=== PATIENT | female | born 1980 | race Caucasian/White ===

== ENCOUNTER → 2016-09-22 | Outpatient (CLI) | payer BC ==
[~2016-09-22] MED LIST: BACL10TA PO; BCPILLS PO; CHOL100010 PO; CHOL1TAB52 PO; CHOLTAB9 PO; CLON1TAB3 PO; CLR10 PO; CYAN100020 PO; DOXY100C76 PO; FERR1TAB23 PO; FING1CAP PO; FLUT0.15 NAE; FRCT/ PO; GADAVIST IV PRN; HYDR-5688 PO; IBUP-103 PO; KETO10TA PO; MDR4 PO; MESA1.2T PO; OMEG10007 PO; ONDA4TAB46 SL; SERT50TA PO; [UNRECOGNIZED DRUG - CODE] PO
--- NOTE | 2016-09-22 10:53 | DIAGNOSTIC IMAGING REPORT ---
Brain MRI WITH AND WITHOUT CONTRAST HISTORY: Multiple cirrhosis. Follow-up. TECHNIQUE: Multiplanar multisequence MRI of the brain was performed both before and after the intravenous administration of contrast. COMPARISON STUDY: Brain MRI 06/25/2016. FINDINGS: Mild mucosal thickening within the paranasal sinuses. The orbits are unremarkable. The mastoid air cells are clear. The major vascular flow-voids at the skull base are maintained. There is no mass, hematoma, midline shift. The ventricles and sulci are within normal limits. There again noted a few scattered punctate foci of T2 hyperintensity within the supratentorial brain, left middle cerebellar peduncle and left hemipons. These are not significantly changed and are consistent with the patient's history of multiple sclerosis. No new white matter lesions identified. No areas of abnormal enhancement. IMPRESSION: No significant change in the scattered white matter plaques within the brain consistent with the patient's history of multiple sclerosis. No evidence for active demyelination. Electronically signed by: Goldy Conn M.D. 09/22/2016 10:51 AM Dictated Date/Time: 09/22/2016 10:44 AM
[2016-09-22 13:19] LABS: BASO % 0.4 %; BASO ABS # 0.02 K/uL (0-0.2); COMPLETE YES; IG% 0.2 %; LYMPH % 7.6 %; LYMPH ABS # 0.38 K/uL (1.2-3.4); MEAN CELL VOLUME 82.2 fL (80-100); MEAN CORPUSCULAR HEMOGLOBIN 26.9 pg (25-34); MEAN CORPUSCULAR HGB CONC 32.7 g/dl (32-36); MEAN PLATELET VOLUME 10.8 fL (7.4-10.4); MONO % 17.5 %; NEUT % 72.3 %; PLATELET COUNT 300 K/uL (130-400); WHITE BLOOD COUNT 5.03 K/uL (4.8-10.8)
== END | disposition home or self-care (01) ==
LOC: C.MRIBC 09:01
PROVIDERS: ATTEND Psychiatry & Neurology Neurology
DX: G35 Multiple sclerosis (principal)

== ENCOUNTER → 2016-10-07 | Outpatient (CLI) | payer BC ==
[~2016-10-07] MED LIST changes: -GADAVIST IV PRN
[2016-10-07 17:30] LABS: BASO % 0.4 %; BASO ABS # 0.02 K/uL (0-0.2); COMPLETE YES; EOS % 4.2 %; HEMATOCRIT 34.5 % (37-47); IG% 0.2 %; LYMPH % 7.6 %; LYMPH ABS # 0.38 K/uL (1.2-3.4); MEAN CELL VOLUME 81.4 fL (80-100); MEAN CORPUSCULAR HEMOGLOBIN 27.4 pg (25-34); MEAN CORPUSCULAR HGB CONC 33.6 g/dl (32-36); MEAN PLATELET VOLUME 9.6 fL (7.4-10.4); MONO % 12.5 %; NEUT % 75.1 %; PLATELET COUNT 272 K/uL (130-400); RED BLOOD COUNT 4.24 M/uL (4.2-5.4); WHITE BLOOD COUNT 5.02 K/uL (4.8-10.8)
[2016-10-07 18:10] LABS: PREG INTERNAL NEGATIVE QC NEG CLEAR BACKGROUND; PREG INTERNAL POSITIVE QC POS CONTROL LINE
== END | disposition home or self-care (01) ==
LOC: C.LAB 17:12
PROVIDERS: ATTEND Obstetrics & Gynecology
DX: N92.6 Irregular menstruation, unspecified (principal)

== ENCOUNTER → 2016-12-18 | Outpatient (CLI) | payer BC ==
[~2016-12-18] MED LIST changes: +CHOLCAP5 PO; +CITA40TA4 PO; +KLN1X PO; +PROB1TAB16 PO
--- NOTE | 2016-12-18 07:50 | DIAGNOSTIC IMAGING REPORT ---
ULTRASOUND ABDOMEN COMPLETE CLINICAL HISTORY: Generalized abdominal pain.. COMPARISON STUDY: Abdominal CT dated 06/04/2007. TECHNIQUE: Real-time, grayscale, and color flow sonography of the abdomen was performed. Images are reviewed in the transverse and longitudinal planes. The examination is degraded by large body habitus. FINDINGS: Liver: The liver is normal in size and echotexture. There is no intrahepatic biliary ductal dilatation. The main portal vein is patent. Gallbladder: The gallbladder is normal in appearance. No gallstones are identified. There is no gallbladder wall thickening or pericholecystic fluid. A sonographic Bassett's sign is reportedly absent. The common bile duct measures up to 0.5 cm in diameter. Pancreas: Visualized portions of the pancreatic head and body are normal in appearance. Spleen: The spleen is normal in size and echotexture, measuring 11.1 cm in length. Kidneys: The kidneys are normal in size and echotexture. There is no hydronephrosis. The right kidney measures 11.5 cm in length and the left kidney measures 12.6 cm in length. No shadowing calculi are identified. Abdominal vasculature: Visualized portions of the abdominal aorta and IVC are normal in appearance. Ascites: None. IMPRESSION: Unremarkable sonographic assessment of the abdomen. Electronically signed by: Octavio Collazo M.D. 12/18/2016 7:49 AM Dictated Date/Time: 12/18/2016 7:47 AM
== END | disposition home or self-care (01) ==
LOC: C.ULTR 06:29
PROVIDERS: ATTEND Internal Medicine Gastroenterology
DX: R10.9 Unspecified abdominal pain (principal); R19.4 Change in bowel habit

== ENCOUNTER 2016-12-23 10:39 | Emergency (ER) | payer BC ==
[~2016-12-23] VITALS: Ht 165.1 cm; Wt 116.5 kg
[~2016-12-23 10:39] MED LIST changes: -BCPILLS PO; -CHOL1TAB52 PO; -CHOLCAP5 PO; -CHOLTAB9 PO; -CITA40TA4 PO; -CLR10 PO; -DOXY100C76 PO; -FERR1TAB23 PO; -FING1CAP PO; -FLUT0.15 NAE; -FRCT/ PO; -HYDR-5688 PO; -IBUP-103 PO; -KETO10TA PO; -KLN1X PO; -MDR4 PO; -MESA1.2T PO; -OMEG10007 PO; -PROB1TAB16 PO; -SERT50TA PO; -[UNRECOGNIZED DRUG - CODE] PO
[2016-12-23 10:42] VITALS: TEMP 36.7; Ht 165.1 cm; Wt 116.5 kg
[2016-12-23] MEDS ORDERED: CHOLTAB9 PO (10:50)
[2016-12-23] MEDS ORDERED: CLR10 PO (10:55)
[2016-12-23] MEDS ORDERED: FLUT0.15 NAE (10:55)
[2016-12-23] MEDS ORDERED: DOXY100C76 PO (10:55)
[2016-12-23] MEDS ORDERED: ALBUT/IPRATROP 3MG/0.5MG NEB 3 ML VIAL INH STA (11:10)
[2016-12-23] MEDS ORDERED: SODIUM CHLORIDE 0.9% 1000ML 1,000 ML IV STA (11:18)
[2016-12-23 11:43] VITALS: O2SAT 100
[2016-12-23 11:43] LABS: BASO % 0.5 %; BASO ABS # 0.02 K/uL (0-0.2); COMPLETE YES; EOS % 2.8 %; HEMATOCRIT 35.2 % (37-47); IG% 0.8 %; LYMPH % 15.4 %; LYMPH ABS # 0.61 K/uL (1.2-3.4); MEAN CELL VOLUME 80.9 fL (80-100); MEAN CORPUSCULAR HEMOGLOBIN 26.4 pg (25-34); MEAN CORPUSCULAR HGB CONC 32.7 g/dl (32-36); MEAN PLATELET VOLUME 9.6 fL (7.4-10.4); MONO % 6.8 %; NEUT % 73.7 %; PLATELET COUNT 291 K/uL (130-400); RED BLOOD COUNT 4.35 M/uL (4.2-5.4); WHITE BLOOD COUNT 3.95 K/uL (4.8-10.8)
--- NOTE | 2016-12-23 11:53 | EMERGENCY ROOM VISIT NOTE ---
History First contact with patient: 11:04 Chief Complaint: COUGH Stated Complaint: COUGH, FEVER, CHILLS DX: PNEUMONIA ON 12/18 Nursing Triage Summary: Pt c/o "sorethroat, body aches, GRAHAM, cough, fever, chills 2 ago." Went to urgent care twice was told allergies and prescribed meds and then told Pneumonia and took Doxy "and I'm not feeling any better." Has taken Doxy 6 days. Now c/o cough, unable to bring anything up. Continues to have "pain in face, sore all over, no energy, my throat is tender from the coughing and my ears are itchy and painful" History of Present Illness The patient is a 36 year old female who presents to the Emergency Room with complaints of cough, body aches, sore throat, malaise, and subjective fevers/ chills. Her symptoms started about 2 weeks ago with sore throat and body aches , she saw her PCP initially thought she had allergies and placed her on allergy medicine. Her symptoms continued to progress and she developed a cough. She saw her PCP again 6 days ago and was diagnosed clinically with pneumonia, no chest x-ray, and started on doxycycline. She has taken 6 days of doxycycline and continues to worsen. She reports some posttussive emesis related to coughing spells only. She denies chest pain, hemoptysis, severe dizziness or syncope, abdominal pain, diarrhea, urinary symptoms. Patient does have past medical history of multiple sclerosis, she states this has not been flaring up and has been well-controlled on her medications. Review of Systems GENERAL: + Chills, malaise, fatigue, subjective fevers. Denies unintentional weight changes. HEENT: Denies dizziness, visual problems, hearing loss, tinnitus. Denies difficulty swallowing or oral lesions. PULMONARY: + Cough. Denies shortness of breath, sputum production or hemoptysis. CARDIOVASCULAR: Denies chest pain, palpitations, dyspnea on exertion, orthopnea or peripheral edema. GASTROINTESTINAL: Denies diarrhea, constipation, nausea, vomiting, or abdominal pain. GENITOURINARY: Denies dysuria, frequency, urgency or nocturia. NEUROLOGIC: Denies history of epilepsy, CVA, TIA or chronic headaches. MUSCULOSKELETAL: Denies history of joint tenderness/swelling. SKIN: Denies rashes or lesions. PSYCHIATRIC: Denies history of depression or mental illness. ENDOCRINE: Denies history of diabetes, thyroid disorders, abnormal hair growth or sexual dysfunction. Past Medical/Surgical History Medical Problems: (1) Multiple sclerosis Family History Diabetes mellitus Heart disease Hypertension Kidney disease Lung disease Social History Smoking Status: Former Smoker Alcohol Use: none Drug Use: none Marital Status: Housing Status: lives with family Occupation Status: employed Current/Historical Medications Scheduled Baclofen (Lioresal), 10 MG PO DIRECTED Cholecalciferol (D3-1000), 4,000 UNITS PO DAILY Clonazepam (Klonopin), 1 MG PO BID Cyanocobalamin (Vitamin B12), 1,000 MCG PO DAILY Doxycycline Monohydrate (Monodox), 100 MG PO BID Fingolimod Hcl (Gilenya), 0.5 MG PO DAILY Fluticasone Propionate (Nasal) (Flonase Allergy Relief), 1 SPRAY HUMBLE DAILY Loratadine (Claritin), 10 MG PO DAILY Sertraline (Zoloft), 50 MG PO DAILY Allergies Coded Allergies: Sulfa Drugs (Verified Allergy, Mild, 12/23/16) Adhesives (Verified Allergy, Unknown, RASH, 12/23/16) Nickel (Verified Allergy, Unknown, ?, 12/23/16) Nitrofurantoin (Unverified Allergy, Unknown, rash, 12/23/16) Penicillins (Verified Allergy, Unknown, ITCHY, NAUSEATED, 12/23/16) Physical Exam Vital Signs Date Time Temp Pulse Resp B/P Pulse Ox O2 Delivery O2 Flow Rate FiO2 12/23/16 13:53 49 20 124/66 97 Room Air 12/23/16 12:10 62 20 114/58 95 Room Air 12/23/16 12:03 60 12/23/16 11:43 100 12/23/16 11:40 95 Room Air 12/23/16 11:40 Room Air 12/23/16 10:48 97 Room Air 12/23/16 10:42 36.7 63 18 115/76 97 Room Air Physical Exam VITAL SIGNS: Afebrile, vitals stable. CONSTITUTIONAL: No acute distress. Well appearing and well nourished. Alert and oriented X 4 with normal affect. HEENT: Normocephalic, atraumatic. Pupils equal, round and reactive to light, EOMI. TMs normal. Pharynx normal. Moist mucous membranes. NECK: Supple, full active range of motion without discomfort. RESPIRATORY: Clear to auscultation bilaterally with no wheezing, crackles, rhonchi or stridor. Equal expansion bilaterally. Diminished bilaterally in the bases. CARDIOVASCULAR: Regular rate and rhythm with no murmurs, rubs or gallops. Normal peripheral perfusion. No edema. GASTROINTESTINAL: Soft, nontender, nondistended. Bowel sounds present in all quadrants. MUSCULOSKELETAL: Full range of motion of all joints without discomfort. INTEGUMENTARY: No rash or other significant dermatologic conditions noted. NEUROLOGIC: Cranial nerves II-XII grossly intact. No focal neurologic deficits noted. Medical Decision & Procedures ER Provider Diagnostic Interpretation: CHEST 2 VIEWS ROUTINE CLINICAL HISTORY: EVALUATE RESPIRATORY DISTRESS. DYSPNEA COMPARISON STUDY: 05/21/2016 FINDINGS: The bones soft tissues and hemidiaphragms are normal. The cardiomediastinal silhouette is normal. The lungs are clear. The pulmonary vasculature is normal. IMPRESSION: Negative chest. Laboratory Results 12/23/16 11:28 Red Blood Count 4.35, Mean Corpuscular Volume 80.9, Mean Corpuscular Hemoglobin 26.4, Mean Corpuscular Hemoglobin Concent 32.7, Mean Platelet Volume 9.6, Neutrophils (%) (Auto) 73.7, Lymphocytes (%) (Auto) 15.4, Monocytes (%) (Auto) 6.8, Eosinophils (%) (Auto) 2.8, Basophils (%) (Auto) 0.5, Neutrophils # (Auto) 2.91, Lymphocytes # (Auto) 0.61, Monocytes # (Auto) 0.27, Eosinophils # (Auto) 0.11, Basophils # (Auto) 0.02 12/23/16 11:28 Test 12/23/16 11:28 12/23/16 11:40 White Blood Count 3.95 K/uL (4.8-10.8) Red Blood Count 4.35 M/uL (4.2-5.4) Hemoglobin 11.5 g/dL (12.0-16.0) Hematocrit 35.2 % (37-47) Mean Corpuscular Volume 80.9 fL (80-100) Mean Corpuscular Hemoglobin 26.4 pg (25-34) Mean Corpuscular Hemoglobin Concent 32.7 g/dl (32-36) Platelet Count 291 K/uL (130-400) Mean Platelet Volume 9.6 fL (7.4-10.4) Neutrophils (%) (Auto) 73.7 % Lymphocytes (%) (Auto) 15.4 % Monocytes (%) (Auto) 6.8 % Eosinophils (%) (Auto) 2.8 % Basophils (%) (Auto) 0.5 % Neutrophils # (Auto) 2.91 K/uL (1.4-6.5) Lymphocytes # (Auto) 0.61 K/uL (1.2-3.4) Monocytes # (Auto) 0.27 K/uL (0.11-0.59) Eosinophils # (Auto) 0.11 K/uL (0-0.5) Basophils # (Auto) 0.02 K/uL (0-0.2) RDW Standard Deviation 42.6 fL (36.4-46.3) RDW Coefficient of Variation 14.2 % (11.5-14.5) Immature Granulocyte % (Auto) 0.8 % Immature Granulocyte # (Auto) 0.03 K/uL (0.00-0.02) Anion Gap 4.0 mmol/L (3-11) Est Creatinine Clear Calc Drug Dose 120.1 ml/min Estimated GFR () 106.8 Estimated GFR (Non- 92.1 BUN/Creatinine Ratio 17.9 (10-20) Calcium Level 8.8 mg/dl (8.5-10.1) Total Bilirubin 0.2 mg/dl (0.2-1) Aspartate Amino Transf (AST/SGOT) 10 U/L (15-37) Alanine Aminotransferase (ALT/SGPT) 19 U/L (12-78) Alkaline Phosphatase 66 U/L (45-117) Total Protein 6.9 gm/dl (6.4-8.2) Albumin 3.3 gm/dl (3.4-5.0) Globulin 3.6 gm/dl (2.5-4.0) Albumin/Globulin Ratio 0.9 (0.9-2) Urine Color YELLOW Urine Appearance CLEAR (CLEAR) Urine pH 5.5 (4.5-7.5) Urine Specific [place] 1.007 (1.000-1.030) Urine Protein NEG (NEG) Urine Glucose (UA) NEG (NEG) Urine Ketones NEG (NEG) Urine Occult Blood 2+ (NEG) Urine Nitrite NEG (NEG) Urine Bilirubin NEG (NEG) Urine Urobilinogen NEG (NEG) Urine Leukocyte Esterase NEG (NEG) Urine WBC (Auto) 1-5 /hpf (0-5) Urine RBC (Auto) 0-4 /hpf (0-4) Urine Hyaline Casts (Auto) 1-5 /lpf (0-5) Urine Epithelial Cells (Auto) >30 /lpf (0-5) Urine Bacteria (Auto) NEG (NEG) Urine Test NEG (NEG) Influenza Type A (RT-PCR) Neg for Influ A (NEG) Influenza Type A Antigen Neg for Influ A (NEG) Influenza Type B Antigen Neg for Influ B (NEG) Influenza Type B (RT-PCR) Neg for Influ B (NEG) She was slight leukopenia Medications Administered Medications (Trade) Dose Ordered Sig/Korina Route Start Time Stop Time Status Last Admin Dose Admin Albuterol/ Ipratropium 3 ml 3 ml NOW STAT INH 12/23/16 11:10 12/23/16 11:19 DC 12/23/16 11:39 3 ML Sodium Chloride (Nss 1000ml) 1,000 ml @ 999 mls/hr Q1H1M STAT IV 12/23/16 11:18 12/23/16 12:18 DC 12/23/16 11:39 999 MLS/HR ECG Indication: other (to assess QT prolongation) Rhythm: sinus bradycardia Findings: other Change: no significant change (05/21/2016) ED Course Orders placed at bedside for EKG, chest x-ray, labs, DuoNeb treatment, IV fluids. I discussed with Dr. Mullen, who agrees with my plan. Patient reassessed after DuoNeb, states she feels better with this. Chest x-ray reviewed, no acute abnormalities. Patient updated on all results and plan for discharge, encouraged to follow closely with her PCP, she verbalized understanding and was comfortable with this plan. Medical Decision CC: Patient presenting with complaint of cough and malaise. Interpretation of Labs: Slight leukopenia and slight anemia; no significant electrolyte abnormalities. Differential Diagnosis: Includes, but not limited to pneumonia, bronchitis, asthma, influenza, viral URI. Summary: Patient is in no acute distress. Vital signs stable. She is afebrile. Lungs are clear throughout, diminished in the bases, but no wheezes, crackles, rhonchi heard. Labs are unremarkable. EKG shows sinus bradycardia with a normal QT interval. Chest x-ray is normal with no signs of pneumonia. Patient reassessed multiple times throughout her ED stay, improving with treatment. Patient stable at time of discharge. Impression Primary Impression: Cough Additional Impression: Upper respiratory infection Departure Information Dispostion Home / Self-Care Condition GOOD Referrals Vanesa Witt (PCP) Patient Instructions ED URI Viral, My [facility] Additional Instructions Please follow-up with your PCP in the next 1-2 days to be rechecked. Continue taking Claritin and using the Flonase as prescribed to help treat allergy symptoms. There is no evidence of pneumonia on her chest x-ray. You may stop taking the doxycycline. For pain/body aches and fever control, you can use the following over-the- counter medicines (if >12 yo): - Regular strength (325mg/tab) Tylenol (acetaminophen) 2 tabs every 4-6 hours as needed. Do not exceed 12 tablets in a 24 hour period. Avoid taking more than 4 grams (4000 mg) of Tylenol per day. This includes any other sources of acetaminophen you may take on a regular basis. - Regular strength (200 mg/tab) Advil (ibuprofen) 1-2 tabs every 4-6 hours as needed. Do not exceed a dose of 3200 mg per day. - For best results, alternate dosing of Tylenol and Advil. Please return to the emergency department if your symptoms persist or worsen over the next 2-3 days despite treatment course outlined above. Return to the emergency department if you develop the following symptoms of: inability to swallow solids, liquids, or drool; excessive wheezing or inability to catch your breath; chest pain, coughing up blood, severe dizziness or passing out; or intractable fever or pain; or any other concerns. Problem Qualifiers Additional Impression: Upper respiratory infection URI type: unspecified viral URI Qualified Codes: J06.9 - Acute upper respiratory infection, unspecified; B97.89 - Other viral agents as the cause of diseases classified elsewhere
[2016-12-23 12:01] LABS: BUN/CREATININE RATIO 17.9 (10-20); CALCIUM 8.8 mg/dl (8.5-10.1); CREATININE 0.81 mg/dl (0.60-1.20); POTASSIUM 3.9 mmol/L (3.5-5.1)
[2016-12-23 12:03] LABS: ALB/GLOB RATIO 0.9 (0.9-2)
[2016-12-23 12:19] LABS: URINE APPEARANCE CLEAR (CLEAR); URINE BILIRUBIN NEG (NEG); URINE COLOR YELLOW; URINE EPITHELIAL CELL AUTO >30 /lpf (0-5); URINE NITRITE NEG (NEG); URINE PH 5.5 (4.5-7.5); URINE SPECIFIC GRAVITY 1.007 (1.000-1.030); UROBILINOGEN NEG (NEG)
[2016-12-23 12:26] LABS: MANUAL MICROSCOPIC REQUIRED? NO; REVIEW REQ? NO
--- NOTE | 2016-12-23 12:50 | DIAGNOSTIC IMAGING REPORT ---
CHEST 2 VIEWS ROUTINE CLINICAL HISTORY: EVALUATE RESPIRATORY DISTRESS. DYSPNEA COMPARISON STUDY: 05/21/2016 FINDINGS: The bones soft tissues and hemidiaphragms are normal. The cardiomediastinal silhouette is normal. The lungs are clear. The pulmonary vasculature is normal. IMPRESSION: Negative chest. Electronically signed by: Maldonado Lane M.D. 12/23/2016 12:48 PM Dictated Date/Time: 12/23/2016 12:48 PM
[2016-12-23 13:53] VITALS: BP 124/66; PULSE 49; O2SAT 97
[2016-12-23 14:46] LABS: INFLUENZA A PCR Neg for Influ A (NEG); INFLUENZA B PCR Neg for Influ B (NEG)
[2016-12-23] MEDS ORDERED: FING1CAP PO (17:59)
[2016-12-23] MEDS ORDERED: SERT50TA PO (17:59)
[2017-01-09] MEDS ORDERED: CHOL1TAB52 PO (07:56)
[2017-01-09] MEDS ORDERED: BCPILLS PO (07:56)
[2017-01-09] MEDS ORDERED: IBUP-103 PO (07:56)
[2017-01-09] MEDS ORDERED: SERT50TA PO (07:56)
[2017-07-15] MEDS ORDERED: [UNRECOGNIZED DRUG - CODE] PO (01:58)
[2017-07-15] MEDS ORDERED: OMEG10007 PO (07:56)
== END 2016-12-23 14:16 | disposition home or self-care (01) ==
LOC: C.EDB 10:40 → C.EDA 14:16
DX: R05 Cough (principal); J06.9 Acute upper respiratory infection, unspecified; B97.89 Other viral agents as the cause of diseases classified elsewhere; G35 Multiple sclerosis; Z87.891 Personal history of nicotine dependence; Z83.3 Family history of diabetes mellitus; Z82.49 Family history of ischemic heart disease and other diseases of the circulatory system

== ENCOUNTER → 2017-01-16 | Day surgery (SDC) | payer BC ==
[2017-01-09 07:58] VITALS: Ht 162.6 cm; Wt 113.6 kg
[~2017-01-16] VITALS: Ht 162.6 cm; Wt 113.6 kg
[~2017-01-16] MED LIST changes: +BCPILLS PO; -CHOL100010 PO; +CHOL1TAB52 PO; +CHOLCAP5 PO; +CITA40TA4 PO; +FERR1TAB23 PO; +FING1CAP PO; +FRCT/ PO; +HYDR-5688 PO; +IBUP-103 PO; +KETO10TA PO; +KLN1X PO; +LIDOCAINE HCL 2% 2 ML VIAL (20MG/ML) ONE; +MDR4 PO; +MESA1.2T PO; +MIDAZOLAM HCL 1 MG/ML 2ML VIAL ONE; +OMEG10007 PO; -ONDA4TAB46 SL; +PROB1TAB16 PO; +PROPOFOL IV EMULSION 10 MG/ML 20 ML VIAL IV ONE; +SERT50TA PO; +[UNRECOGNIZED DRUG - CODE] PO
[2017-01-16 13:18] VITALS: TEMP 36.7
--- NOTE | 2017-01-16 13:35 | Endo History and Physical ---
History & Physical Date of Service: January 16, 2017. Chief Complaint: GERD,abdominal pain and change in bowel habits Referring Physician: Kelli POTTS History of Present Illness For EGD and colonoscopy Past Medical History Neurological Disorder, Anxiety, Reflux, Depression Past Surgical History Hx Cardiac Surgery: No Hx Internal Defibrillator: No Hx Pacemaker: No Hx Abdominal Surgery: No Hx of Implantable Prosthesis: No Hx Post-Op Nausea and Vomiting: No Hx Cancer Surgery: No Hx Thoracic Surgery: No Hx Orthopedic: Yes (LT HIP I&D) Hx Urinary Tract Surgery: No Family History Polyp Social History Smoking Status: Former Smoker Hx Substance Use: No Hx Alcohol Use: No Allergies Coded Allergies: Sulfa Drugs (Verified Allergy, Mild, RASH, 01/09/17) Adhesives (Verified Allergy, Unknown, RASH, 12/23/16) Nickel (Verified Allergy, Unknown, "ITCHY, RED BUMPS", 01/09/17) Nitrofurantoin (Verified Allergy, Unknown, RASH, 01/16/17) Penicillins (Verified Allergy, Unknown, ITCHY, NAUSEATED, 12/23/16) Dairy (Verified Adverse Reaction, Unknown, GI UPSET, HEADACHE, 01/09/17) Eggs or Egg-derived Products (Verified Adverse Reaction, Unknown, GI UPSET , HEADACHE, 01/09/17) Gluten (Verified Adverse Reaction, Unknown, GI UPSET, HEADACHE, 01/09/17) Current Medications Reported Home Medications Medications Dose Route/Sig Max Daily Dose Days Date Category Advil (Ibuprofen) 200 Mg Tab 400-600 Mg PO Q6H PRN 01/09/17 Reported Clubb-3 (Fish Oil) 1 Ea Cap 1 Cap PO QAM 01/09/17 Reported Control Pills (Miscellaneous) Tab 1 Tab PO QAM 01/09/17 Reported D 5000 (Cholecalciferol) 5,000 Unit Tab 1 Tab PO QAM 01/09/17 Reported Lioresal (Baclofen) 10 Mg Tab 10 Mg PO Q6H PRN 05/21/16 Reported Vitamin B12 (Cyanocobalamin) 1,000 Mcg Tab 1,000 Mcg PO QAM 05/21/16 Reported Gilenya (Fingolimod Hcl) 0.5 Mg Cap 0.5 Mg PO QAM 03/31/16 Reported Zoloft (Sertraline HCl) 50 Mg Tab 50 Mg PO QAM 03/31/16 Reported Klonopin (Clonazepam) 1 Mg Tab 1 Mg PO BID 03/07/15 Reported Vital Signs Weight (Kilograms): 113.64 Height (Feet): 5 Height (Inches): 4 Date Time Temp Pulse Resp B/P Pulse Ox O2 Delivery O2 Flow Rate FiO2 01/16/17 13:18 36.7 61 16 126/71 97 Room Air Physical Exam General Appearance: WD/WN Respiratory/Chest: Respiratory effort: no dyspnea Cardiovascular: Heart Auscultation: RRR Abdomen: Inspection & Palpation: soft (Abd pain, change in bowels for EGD and colonoscopy)
--- NOTE | 2017-01-16 14:57 | Discharge Instructions ---
Endoscopy Patient Instructions Date / Procedure(s) Performed January 16, 2017. Colonoscopy, EGD Allergy Information Coded Allergies: Sulfa Drugs (Verified Allergy, Mild, RASH, 01/09/17) Adhesives (Verified Allergy, Unknown, RASH, 12/23/16) Nickel (Verified Allergy, Unknown, "ITCHY, RED BUMPS", 01/09/17) Nitrofurantoin (Verified Allergy, Unknown, RASH, 01/16/17) Penicillins (Verified Allergy, Unknown, ITCHY, NAUSEATED, 12/23/16) Dairy (Verified Adverse Reaction, Unknown, GI UPSET, HEADACHE, 01/09/17) Eggs or Egg-derived Products (Verified Adverse Reaction, Unknown, GI UPSET , HEADACHE, 01/09/17) Gluten (Verified Adverse Reaction, Unknown, GI UPSET, HEADACHE, 01/09/17) Discharge Date / Findings January 16, 2017. Normal EGD, Ileitis, colon ulceration Medication Instructions Restart Stopped Medication(s): resume meds Start Lialda 1.2 gm, 2 pills once a day. Provider Instructions Activity Restrictions - No exercising or heavy lifting for 24 hours. - Do not drink alcohol the day of the procedure. - Do not drive a car or operate machinery until the day after the procedure. - Do not make any important decisions or sign important papers in 24 hours after the procedure. Following Day: - Return to full activity which may include returning to work/school. Diet Start your diet with liquids and light foods (jello, soup, juice, toast). Then eat your usual diet if not nauseated. Treatment For Common After Affects For mild abdominal pain, bloating, or excessive gas: - Rest - Eat lightly - Lie on right side Follow-Up Information Follow-up with Kelli POTTS as scheduled. Schedule OV with Dr. Villa in 4 weeks. [phone] Anesthesia Information What You Should Know You have had a procedure that required some medicine to reduce anxiety and discomfort. This treatment is called moderate sedation. After receiving the treatment, you may be sleepy, but you will be able to breathe on your own. The effects of the treatment may last for several hours. Follow these instructions along with Activity/Diet recommendations noted above: * Do NOT do anything where dizziness or clumsiness would be dangerous. * Rest quietly at home today, then you can be up and about tomorrow. * Have a responsible person stay with you the rest of today. * You may have had an I.V. today. If so, you may take the dressing off later today. Recommendations Call your doctor if: * Trouble breathing * Continuous vomiting for more than 24 hours * Temperature above 101 degrees * Severe abdominal pain or bloating * Pain not relieved by pain medicine ordered * There is increased drainage or redness from any incision * A large amount of rectal bleeding greater than 2-3 tablespoons. (If you had a polyp/s removed or have hemorrhoids, a small amount of blood - from the rectum is to be expected.) * You have any unanswered questions or concerns. IN THE EVENT OF A SERIOUS EMERGENCY, GO TO THE NEAREST EMERGENCY ROOM Your discharge instructions were prepared by provider Dain Villa. Patient Instructions Signature Page Anika Mccullough Patient (or Guardian) Signature/Date: I have read and understand the instructions given to me by my caregivers. Caregiver/RN/Doctor Signature/Date: The above-named patient and/or guardian has received patient instructions on this date. + Original Patient Signature Page (only) stays with chart. Please make copy for patient.
--- NOTE | 2017-01-16 15:00 | GI REPORT ---
Procedure Date: 01/16/2017 2:20 PM Procedure: Upper GI endoscopy Indications: Epigastric abdominal pain Medicines: Midazolam 2 mg IV, Propofol total dose 330 mg IV, Lidocaine 40 mg IV Complications: No immediate complications. Estimated Blood Loss: Estimated blood loss: none. Procedure: Pre-Anesthesia Assessment: - Prior to the procedure, a History and Physical was performed, and patient medications, allergies and sensitivities were reviewed. The patient's tolerance of previous anesthesia was reviewed. - The risks and benefits of the procedure and the sedation options and risks were discussed with the patient. All questions were answered and informed consent was obtained. After obtaining informed consent, the endoscope was passed under direct vision. Throughout the procedure, the patient's blood pressure, pulse, and oxygen saturations were monitored continuously. The Scope was introduced through the mouth, and advanced to the second part of duodenum. The upper GI endoscopy was accomplished without difficulty. The patient tolerated the procedure well. Findings: The esophagus was normal. The stomach was normal. The examined duodenum was normal. Impression: - Normal esophagus. - Normal stomach. - Normal examined duodenum. - No specimens collected. Recommendation: - Discharge patient to home (ambulatory). - Continue present medications. - Return to primary care physician PRN. Dain Villa M.D. Dain Villa MD 01/16/2017 3:00:58 PM This report has been signed electronically. Note Initiated On: 01/16/2017 2:20 PM I attest to the content of the Intraoperative Record and orders documented therein, exceptions below
--- NOTE | 2017-01-16 15:05 | GI REPORT ---
Procedure Date: 01/16/2017 2:34 PM Procedure: Colonoscopy Indications: Change in bowel habits Medicines: Midazolam 2 mg IV, Propofol total dose 330 mg IV, Lidocaine 40 mg IV Complications: No immediate complications. Estimated Blood Loss: Estimated blood loss was minimal. Procedure: Pre-Anesthesia Assessment: - Prior to the procedure, a History and Physical was performed, and patient medications, allergies and sensitivities were reviewed. The patient's tolerance of previous anesthesia was reviewed. - The risks and benefits of the procedure and the sedation options and risks were discussed with the patient. All questions were answered and informed consent was obtained. After I obtained informed consent, the scope was passed under direct vision. Throughout the procedure, the patient's blood pressure, pulse, and oxygen saturations were monitored continuously. The scope was introduced through the anus and advanced to the terminal ileum. The colonoscopy was performed without difficulty. The patient tolerated the procedure well. The quality of the bowel preparation was fair. Findings: A patchy area of mucosa in the terminal ileum was moderately congested and ulcerated. Biopsies were taken with a cold forceps for histology. Estimated blood loss was minimal. A single localized non-bleeding aphtha was found at the hepatic flexure. No stigmata of recent bleeding were seen. Biopsies were taken with a cold forceps for histology. Estimated blood loss was minimal. Impression: - Congested and ulcerated mucosa in the terminal ileum. Biopsied. - Aphtha at the hepatic flexure. Biopsied. Recommendation: - Discharge patient to home (ambulatory). - Use Lialda 1.2 gm at 2 tabs PO daily indefinitely. - Await pathology results. - Return to GI office at appointment to be scheduled. Dain Villa M.D. Dain Villa MD 01/16/2017 3:05:51 PM This report has been signed electronically. Note Initiated On: 01/16/2017 2:34 PM I attest to the content of the Intraoperative Record and orders documented therein, exceptions below
--- NOTE | 2017-01-16 15:27 | Anesthesiology Progress Note ---
Anesthesia Post Op Note Date & Time January 16, 2017 at 15:27 Vital Signs Pain Intensity: 0 Vital Signs Past 12 Hours Date Time Temp Pulse Resp B/P Pulse Ox O2 Delivery O2 Flow Rate FiO2 01/16/17 15:25 47 16 123/76 99 Room Air 01/16/17 15:14 49 16 112/76 99 01/16/17 15:08 50 16 129/79 97 Room Air 01/16/17 13:18 36.7 61 16 126/71 97 Room Air Notes Mental Status: alert / awake / arousable, participated in evaluation Pt Amnestic to Procedure: Yes Nausea / Vomiting: adequately controlled Pain: adequately controlled Airway Patency, RR, SpO2: stable & adequate BP & HR: stable & adequate Hydration State: stable & adequate Anesthetic Complications: no major complications apparent
[2017-01-16 15:38] VITALS: BP 107/78; PULSE 49; O2SAT 100
== END | disposition home or self-care (01) ==
LOC: C.GI 12:38
PROVIDERS: ATTEND Internal Medicine Gastroenterology
DX: K21.9 Gastro-esophageal reflux disease without esophagitis (principal); R10.13 Epigastric pain; F32.9 Major depressive disorder, single episode, unspecified; F41.9 Anxiety disorder, unspecified; Z87.891 Personal history of nicotine dependence

== ENCOUNTER → 2017-01-26 | Outpatient (CLI) | payer BC ==
[~2017-01-26] MED LIST changes: -LIDOCAINE HCL 2% 2 ML VIAL (20MG/ML) ONE; -MIDAZOLAM HCL 1 MG/ML 2ML VIAL ONE; -PROPOFOL IV EMULSION 10 MG/ML 20 ML VIAL IV ONE
== END | disposition home or self-care (01) ==
LOC: C.PAPS 11:14
PROVIDERS: ATTEND Obstetrics & Gynecology
DX: K50.90 Crohn's disease, unspecified, without complications (principal)

== ENCOUNTER → 2017-01-30 | Outpatient (CLI) | payer BC ==
[2017-01-30 14:38] LABS: BASO % 0.5 %; BASO ABS # 0.03 K/uL (0-0.2); COMPLETE YES; EOS % 2.5 %; HEMATOCRIT 39.3 % (37-47); LYMPH ABS # 0.34 K/uL (1.2-3.4); MEAN CELL VOLUME 80.4 fL (80-100); MEAN CORPUSCULAR HEMOGLOBIN 24.5 pg (25-34); MEAN CORPUSCULAR HGB CONC 30.5 g/dl (32-36); MEAN PLATELET VOLUME 9.9 fL (7.4-10.4); MONO % 7.8 %; NEUT % 83.2 %; PLATELET COUNT 373 K/uL (130-400); RED BLOOD COUNT 4.89 M/uL (4.2-5.4); WHITE BLOOD COUNT 5.67 K/uL (4.8-10.8)
[2017-01-30 14:59] LABS: ALT/SGPT 20 U/L (12-78); BLOOD UREA NITROGEN 12 mg/dl (7-18); BUN/CREATININE RATIO 13.5 (10-20); CARBON DIOXIDE 26 mmol/L (21-32); CHLORIDE 104 mmol/L (98-107); CREATININE 0.86 mg/dl (0.60-1.20); GLUCOSE 81 mg/dl (70-99); POTASSIUM 3.9 mmol/L (3.5-5.1); SODIUM 138 mmol/L (136-145)
[2017-01-30 15:02] LABS: ALB/GLOB RATIO 0.9 (0.9-2); ALKALINE PHOSPHATASE 77 U/L (45-117); AST/SGOT 14 U/L (15-37); CALCIUM 9.1 mg/dl (8.5-10.1)
[2017-01-30 15:02] LABS: FERRITIN 89.4 ng/ml (8.0-388.0)
[2017-02-06 01:44] LABS: JCV ANTIBODY NEGATIVE; JCV INDEX 0.15
== END | disposition home or self-care (01) ==
LOC: C.LAB 13:14
PROVIDERS: ATTEND Psychiatry & Neurology Neurology
DX: D64.9 Anemia, unspecified (principal); G35 Multiple sclerosis

== ENCOUNTER 2017-02-18 01:19 | Emergency (ER) | payer BC ==
[~2017-02-18] VITALS: Ht 165.1 cm; Wt 112.8 kg
[~2017-02-18 01:19] MED LIST changes: -CHOLCAP5 PO; -CITA40TA4 PO; -FERR1TAB23 PO; -FRCT/ PO; -HYDR-5688 PO; -KETO10TA PO; -KLN1X PO; -MDR4 PO; -MESA1.2T PO; -OMEG10007 PO; -PROB1TAB16 PO; -[UNRECOGNIZED DRUG - CODE] PO
[2017-02-18 01:22] VITALS: TEMP 36.4; Ht 165.1 cm; Wt 112.8 kg
[2017-02-18] MEDS ORDERED: LORAZEPAM 1 MG TAB SL STA (01:38)
[2017-02-18] MEDS ORDERED: MESA1.2T PO (01:58)
[2017-02-18] MEDS ORDERED: KETOROLAC TROMETHAMINE 60 MG/2 ML VIAL IM STA (02:48)
[2017-02-18] MEDS ORDERED: METOCLOPRAMIDE HCL 5 MG TAB PO ONE (03:00)
--- NOTE | 2017-02-18 03:40 | EMERGENCY ROOM VISIT NOTE ---
History First contact with patient: 01:26 Chief Complaint: HEAD PAIN Stated Complaint: HEAD PAIN,SOB History of Present Illness The patient is a 36 year old female who presents to the Emergency Room with complaints of mild frontal headache for the past month after starting Asacol for her Crohn's by Dr. Villa. She is also on prednisone 20 mg for the past month. She has MS and follows with Dr. Funes. Patient states she suffers from anxiety and is ostomy worried that she will get an infection from her medications that she is on and is worried about this now. She's been worried about this for the past several months. Patient tried one of her clonazepam with no improvement of symptoms. Patient describes the headache as mild, 4-10 to the frontal region. Nothing makes it better or worse. Patient denies numbness, tingling, weakness, chest pain, dyspnea, fever, chills, cough, congestion, cold symptoms, sore throat, abdominal pain, vomiting, diarrhea, loss of vision, change in vision. Patient had a MRI earlier this year that was no new findings. No sign onset headache. Review of Systems See HPI for pertinent positives & negatives. A total of 10 systems reviewed and were otherwise negative. Past Medical/Surgical History Medical Problems: (1) Multiple sclerosis Crohn disease and anxiety Family History Diabetes mellitus Heart disease Hypertension Kidney disease Lung disease Social History Smoking Status: Never Smoker Alcohol Use: none Drug Use: none Marital Status: Housing Status: lives with family Occupation Status: employed Current/Historical Medications Scheduled Cholecalciferol (D 5000), 1 TAB PO QAM Fingolimod Hcl (Gil[place]ya), 0.5 MG PO QAM Fish Oil ([place]-3), 1 CAP PO QAM Levonorgestrel-Eth Estradiol ( (Levonest), 1 TAB PO DAILY Mesalamine (Lialda), 2.4 GM PO DAILY Sertraline (Zoloft), 50 MG PO DAILY Scheduled PRN Baclofen (Lioresal), 10 MG PO Q6H PRN for Muscle Spasms Clonazepam (Klonopin), 1 MG PO BID PRN for Anxiety Ibuprofen Tab (Advil), 400-600 MG PO Q6H PRN for Pain Allergies Coded Allergies: Sulfa Drugs (Verified Allergy, Mild, RASH, 02/18/17) Adhesives (Verified Allergy, Unknown, RASH, 02/18/17) Nickel (Verified Allergy, Unknown, "ITCHY, RED BUMPS", 02/18/17) Nitrofurantoin (Verified Allergy, Unknown, RASH, 02/18/17) Penicillins (Verified Allergy, Unknown, ITCHY, NAUSEATED, 02/18/17) Dairy (Verified Adverse Reaction, Unknown, GI UPSET, HEADACHE, 02/18/17) Eggs or Egg-derived Products (Verified Adverse Reaction, Unknown, GI UPSET , HEADACHE, 02/18/17) Gluten (Verified Adverse Reaction, Unknown, GI UPSET, HEADACHE, 02/18/17) Physical Exam Vital Signs Date Time Temp Pulse Resp B/P (MAP) Pulse Ox O2 Delivery O2 Flow Rate FiO2 02/18/17 02:16 57 18 119/83 96 Room Air 02/18/17 01:22 36.4 66 20 153/97 97 Room Air Physical Exam VITALS: Vitals are noted on the nurse's note and reviewed by myself. Vital signs stable. GENERAL: Pleasant female crying and anxious-appearing, in no acute distress, nondiaphoretic, well-developed well-nourished. SKIN: The skin was without rashes, erythema, edema, or bruising. There is no tenting of the skin. Capillary reflex less than 2 seconds. HEAD: Normocephalic atraumatic. EARS: External auditory canals clear, tympanic membranes pearly varela without erythema or effusion bilaterally. EYES: Pupils equal round and reactive to light and accommodation. Conjunctivae without injection, sclerae without icterus. Extraocular movements intact. NOSE: Patent, turbinates without inflammation or discharge. No sinus tenderness. MOUTH: Mucous membranes moist. Pharynx without erythema or exudate. Uvula midline. Airway patent. Tongue does not deviate. NECK: Supple without nuchal rigidity. No lymphadenopathy. No thyromegaly. Cervical spine is nontender. No JVD. No meningeal signs HEART: Regular rate and rhythm without murmurs gallops or rubs. LUNGS: Clear to auscultation bilaterally without wheezes, rales or rhonchi. No dullness to percussion. No retractions or accessory muscle use. ABDOMEN: Positive bowel sounds x 4. Normal tympanic percussion. Soft, nontender, without masses or organomegaly. Bassett sign negative. No guarding or rebound tenderness. MUSCULOSKELETAL: No muscle atrophy, erythema, or edema noted. NEURO: Patient was alert and oriented to person place and time. Normal sensation to light and sharp touch. No focal neurological deficits. Cranial nerves II through XII grossly intact. No pronator drift. Cerebellar exam intact Medical Decision & Procedures Medications Administered Medications (Trade) Dose Ordered Sig/Korina Route Start Time Stop Time Status Last Admin Dose Admin Lorazepam (Ativan Tab) 1 mg NOW STAT SL 02/18/17 01:38 02/18/17 01:39 DC 02/18/17 01:44 1 MG Ketorolac Tromethamine (Toradol Inj) 60 mg NOW STAT IM 02/18/17 02:48 02/18/17 02:49 DC 02/18/17 02:55 60 MG Metoclopramide HCl (Reglan Tab) 10 mg NOW ONCE PO 02/18/17 03:00 02/18/17 03:01 DC 02/18/17 02:53 10 MG ED Course Prior records/ancillary studies reviewed and summarized above. Nursing notes reviewed. Additional history obtained from The patient's history was concerning for anxiety and headache. Differential diagnosis: Etiologies such as anxiety, stress, medication side effect, metabolic, infection , hypo/hyperglycemia, electrolyte abnormalities, intracerebral event, toxicologic, neurologic, as well as others were entertained. Physical examination: As above. ER treatment provided: Ativan, Toradol, Reglan On reassessment the patient felt better. Diagnostics interpretation by me: ] Imaging studies: Brain MRI WITH AND WITHOUT CONTRAST HISTORY: Multiple cirrhosis. Follow-up. TECHNIQUE: Multiplanar multisequence MRI of the brain was performed both before and after the intravenous administration of contrast. COMPARISON STUDY: Brain MRI 06/25/2016. FINDINGS: Mild mucosal thickening within the paranasal sinuses. The orbits are unremarkable. The mastoid air cells are clear. The major vascular flow-voids at the skull base are maintained. There is no mass, hematoma, midline shift. The ventricles and sulci are within normal limits. There again noted a few scattered punctate foci of T2 hyperintensity within the supratentorial brain, left middle cerebellar peduncle and left hemipons. These are not significantly changed and are consistent with the patient's history of multiple sclerosis. No new white matter lesions identified. No areas of abnormal enhancement. IMPRESSION: No significant change in the scattered white matter plaques within the brain consistent with the patient's history of multiple sclerosis. No evidence for active demyelination. Electronically signed by: Goldy Conn M.D. 09/22/2016 10:51 AM Dictated Date/Time: 09/22/2016 10:44 AM Exam and history seem consistent with anxiety. Patient was in there crying and anxious and stressed over concerns for possible side effects to her medications and complications. She was advised to decrease her stress and anxiety and to take her medications as directed. She is advised to follow-up with her GI doctor and MS doctor in a few days or here in the ER sooner for fevers, headache , neck stiffness, chest pain, dyspnea, numbness, tingling, worsening signs or symptoms or as needed. Patient was neurovascularly and neurologically intact. No signs of meningitis. She was afebrile and nontoxic. She is well-appearing. Symptoms have been ongoing for a month now. By the evaluation outlined above emergent etiologies such as infection, electrolyte abnormalities, cardiac sources, intracerebral event, toxologic, neurologic, abnormalities blood glucose, metabolic, as well as others were deemed relatively unlikely. Patient was also asked to speak to her GI doctor in regards to her prednisone use as she always feels very anxious on this. The pt informed about the findings as listed above. All questions were answered and pleased with the treatment. Return instructions were outlined and the patient was discharged in stable condition. Referral: The patient was referred back to neurology, GI and/ or primary care physician for follow-up in 2 to 3 days for a recheck of the current condition. Case reviewed with my attending. Medical Decision As above Impression Primary Impression: Anxiety Additional Impression: Headache Departure Information Dispostion Home / Self-Care Condition GOOD Referrals Vanesa Witt (PCP) Patient Instructions My [facility] Additional Instructions Ibuprofen(Motrin, Advil) may be used for fever or pain. Use 600mg every six hours as needed. Take with food. Avoid using more than 2400mg in a 24 hour period. Do not use 2400mg per day for more than three consecutive days without physician direction. Prolonged inappropriate use can lead to stomach upset or ulcers. (AND/OR) Acetaminophen(Tylenol) may be used for fever or pain. Use 1000mg every six hours as needed. Avoid using more than 3000mg in a 24 hour period. Rest and drink plenty of fluids as tolerated. Continue current medications. Rest. Decrease stress. Return to the ER immediately for worsening or persistent headache, abdominal pain, vomiting, fevers, chest pains, difficulty breathing, worsening of your condition, or as needed. Follow up with your primary physician in 2-3 days for a recheck of your current condition. Problem Qualifiers Additional Impression: Headache Headache type: unspecified Headache chronicity pattern: acute headache Intractability: not intractable Qualified Codes: R51 - Headache
[2017-02-18] MEDS ORDERED: ATIVAN 1MG HOMEPACK PO ONE (03:45)
[2017-02-18 03:52] VITALS: BP 128/82; PULSE 60; O2SAT 98
[2017-07-15] MEDS ORDERED: [UNRECOGNIZED DRUG - CODE] PO (01:58)
[2017-07-15] MEDS ORDERED: OMEG10007 PO (07:56)
== END 2017-02-18 03:55 | disposition home or self-care (01) ==
LOC: C.EDB 01:20 → C.EDA 03:55
DX: F41.9 Anxiety disorder, unspecified (principal); R51 Headache; G35 Multiple sclerosis; K50.90 Crohn's disease, unspecified, without complications; Z83.3 Family history of diabetes mellitus; Z82.49 Family history of ischemic heart disease and other diseases of the circulatory system

== ENCOUNTER → 2017-03-03 | Outpatient (CLI) | payer BC ==
[~2017-03-03] MED LIST changes: -BCPILLS PO; -CYAN100020 PO; +FERR1TAB23 PO; +FRCT/ PO; +HYDR-5688 PO; +KETO10TA PO; +MDR4 PO; +MESA1.2T PO; +OMEG10007 PO; +[UNRECOGNIZED DRUG - CODE] PO
--- NOTE | 2017-03-03 10:42 | DIAGNOSTIC IMAGING REPORT ---
LEFT KNEE 4 OR MORE HISTORY:36 yearsFemaleMEDIAL LEFT KNEE PAIN COMPARISON: None available. TECHNIQUE: Frontal, lateral, tunnel and sunrise views of the left knee. FINDINGS: There is a small joint effusion. No acute fracture, dislocation or significant degenerative changes. There is mild medial soft tissue swelling. IMPRESSION: Mild medial soft tissue swelling with small joint effusion. No acute fracture or dislocation. The above report was generated using voice recognition software. It may contain grammatical, syntax or spelling errors. Electronically signed by: Ambrosio Pacheco 03/03/2017 10:40 AM Dictated Date/Time: 03/03/2017 10:39 AM
== END | disposition home or self-care (01) ==
LOC: C.RDSM 10:05
PROVIDERS: ATTEND Family Medicine
DX: M25.569 Pain in unspecified knee (principal)

== ENCOUNTER 2017-03-07 07:08 | Emergency (ER) | payer BC ==
[~2017-03-07] VITALS: Ht 165.1 cm; Wt 110.0 kg
[~2017-03-07 07:08] MED LIST changes: -FERR1TAB23 PO; -FRCT/ PO; -HYDR-5688 PO; -KETO10TA PO; -MDR4 PO
[2017-03-07 07:10] VITALS: TEMP 36.6; Ht 165.1 cm; Wt 110.0 kg
[2017-03-07] MEDS ORDERED: DIAZEPAM INJ 5 MG/ML 2 ML CARP IV STA (07:34)
[2017-03-07] MEDS ORDERED: SODIUM CHLORIDE 0.9% 1000ML 1,000 ML IV STA (07:34)
[2017-03-07] MEDS ORDERED: DEXAMETHASONE SOD INJ 10 MG/ML VIAL IV ONE (07:45)
[2017-03-07] MEDS ORDERED: FERR1TAB23 PO (07:51)
--- NOTE | 2017-03-07 08:00 | EMERGENCY ROOM VISIT NOTE ---
ED Visit Note First contact with patient: 07:14 CHIEF COMPLAINT: Low back pain HISTORY OF PRESENT ILLNESS: This 36-year-old female patient presents to the emergency department complaining of pain in the low back which began approximately one week ago, and has gotten progressively worse. The pain was gradual in onset, is now constant and worse with movement. The patient notes the pain as squeezing and spasms and a 9/10. The patient has taken baclofen and Tylenol for relief of the pain. The patient denies any loss of control of their bowel or bladder functions. There has been no leg numbness or weakness, and no change in sensation. No nausea or vomiting or abdominal pain. No chest pain or shortness of breath. The patient has not had prior back injuries. No dysuria or increased urinary frequency. Patient states she has a history of back spasms in the past, but this is worse than usual. She has past medical history of MS, she states she is not having any complications of this currently. REVIEW OF SYSTEMS: A review of systems was performed with positives and pertinent negatives listed in the history of present illness. All other systems were reviewed and are negative. ALLERGIES: See chart MEDICATIONS: See chart PMH: See chart SOCIAL HISTORY: See chart PHYSICAL EXAM: VITALS: Vitals are noted on the nurse's note and reviewed by myself. Vital signs stable. GENERAL: Pleasant and cooperative, in no acute distress, but appears uncomfortable and in pain, well-developed well-nourished. SKIN: The skin was without rashes, erythema, edema, or bruising. Capillary refill less than 2 seconds. NECK: Supple without nuchal rigidity. No cervical spine tenderness. No paraspinous muscle tenderness. HEART: Regular rate and rhythm without murmurs gallops or rubs. LUNGS: Clear to auscultation bilaterally without wheezes, rales or rhonchi. ABDOMEN: Positive bowel sounds x 4. Normal tympanic percussion. Soft, nontender, without masses or organomegaly. Bassett sign negative. MUSCULOSKELETAL: No muscle atrophy, erythema, or edema noted of the back. There is no tenderness over the lumbar spinous processes. There is tenderness over the paraspinous muscles of the lumbar spine bilaterally, right greater than left. There is no tenderness over the thoracic spine or paraspinous muscles. There are muscle spasms present. The patient is slow to move around with maximum tenderness with bending or twisting movements. Negative straight leg raise test. NEURO: Patient was alert and oriented to person place and time. Normal sensation to light and sharp touch. Deep tendon reflexes 2+ in the lower extremities. Dorsalis pedis pulse 2+ bilaterally. Strength 5/5 and equal in the bilateral lower extremities. EMERGENCY DEPARTMENT COURSE: I examined the patient. There has been no trauma or other significant red flags to indicate a need for imaging at this time. Urinalysis shows large amount of epithelial cells and seems to be more consistent with contaminant, doubt UTI. Patient was given IV Valium, Decadron, and fluid bolus. Patient is much more comfortable and relaxed on reassessment, and she has ambulated without significant difficulty after medication. Patient was instructed on plan for follow-up, she verbalized understanding. Patient was discharged home in stable condition and ambulatory. Medication Reconciliation: I attest that I have personally reviewed the patient' s current medication list. Blood pressure screening: The patient was found to have normal blood pressure on screening and does not require follow-up for repeat blood pressure check. Patient was discussed with Dr. Hernadez, who agrees with my assessment and disposition. Current/Historical Medications Scheduled Cholecalciferol (D 5000), 5,000 UNITS PO QAM Clonazepam (Klonopin), 1 MG PO BID Ferrous Sulfate (Iron), 325 MG PO DAILY Fingolimod Hcl (Gilenya), 0.5 MG PO QAM Fish Oil ([place]-3), 1 CAP PO QAM Levonorgestrel-Eth Estradiol ( (Levonest), 1 TAB PO DAILY Mesalamine (Lialda), 2.4 GM PO BID Sertraline (Zoloft), 25 MG PO DAILY Scheduled PRN Baclofen (Lioresal), 10 MG PO Q6H PRN for Muscle Spasms Hydrocodone/Acetaminophen 5MG/325MG ([place] 5MG/325MG), 1-2 TABLET PO Q6H PRN for Pain Ibuprofen Tab (Advil), 400-600 MG PO Q6H PRN for Pain Allergies Coded Allergies: Sulfa Drugs (Verified Allergy, Mild, RASH, 03/07/17) Adhesives (Verified Allergy, Unknown, RASH, 03/07/17) Nickel (Verified Allergy, Unknown, "ITCHY, RED BUMPS", 03/07/17) Nitrofurantoin (Verified Allergy, Unknown, RASH, 03/07/17) Penicillins (Verified Allergy, Unknown, ITCHY, NAUSEATED, 03/07/17) Vital Signs Date Time Temp Pulse Resp B/P (MAP) Pulse Ox O2 Delivery O2 Flow Rate FiO2 03/07/17 10:35 59 16 109/61 99 Room Air 03/07/17 09:18 60 16 107/59 100 Room Air 03/07/17 08:16 63 16 109/56 96 Room Air 03/07/17 07:58 63 98 03/07/17 07:10 36.6 71 18 118/66 98 Room Air Laboratory Results Test 03/07/17 07:45 Urine Color YELLOW Urine Appearance CLEAR (CLEAR) Urine pH 6.5 (4.5-7.5) Urine Specific [place] 1.023 (1.000-1.030) Urine Protein NEG (NEG) Urine Glucose (UA) NEG (NEG) Urine Ketones TRACE (NEG) Urine Occult Blood NEG (NEG) Urine Nitrite NEG (NEG) Urine Bilirubin NEG (NEG) Urine Urobilinogen NEG (NEG) Urine Leukocyte Esterase SMALL (NEG) Urine WBC (Auto) 1-5 /hpf (0-5) Urine RBC (Auto) 5-10 /hpf (0-4) Urine Hyaline Casts (Auto) 1-5 /lpf (0-5) Urine Epithelial Cells (Auto) >30 /lpf (0-5) Urine Bacteria (Auto) 2+ (NEG) Urine Test NEG (NEG) Date/Time Source Procedure Growth Status 03/07/17 07:45 Urine , Clean Catch Urine Culture - Final MORE THAN THREE TYPES OF ORGANISMS [place]... Complete Medications Administered Medications (Trade) Dose Ordered Sig/Korina Route Start Time Stop Time Status Last Admin Dose Admin Diazepam (Valium Inj) 5 mg NOW STAT IV 03/07/17 07:34 03/07/17 07:39 DC 03/07/17 08:06 5 MG Dexamethasone Sodium Phosphate (Decadron Inj) 10 mg NOW ONCE IV 03/07/17 07:45 03/07/17 07:46 DC 03/07/17 08:06 10 MG Sodium Chloride 1,000 ml @ 999 mls/hr Q1H1M STAT IV 03/07/17 07:34 03/07/17 08:34 DC 03/07/17 08:06 999 MLS/HR Diazepam (Valium Inj) 5 mg NOW ONCE IV 03/07/17 09:30 03/07/17 09:31 DC 03/07/17 09:31 5 MG Departure Information Impression Primary Impression: Spasm of back muscles Dispostion Home / Self-Care Condition GOOD Prescriptions Hydrocodone/Acetaminophen 5MG/325MG ([place] 5MG/325MG) Tab 1-2 TABLET PO Q6H Y for Pain for 2 Days, #16 TAB For Initial Treatment Prov: Dianne Bocanegra CRNP 03/07/17 Referrals Vanesa Witt (PCP) Patient Instructions ED Exercises Lumbar Muscles, ED Spasm Back No Trauma, My [facility] Additional Instructions Take it easy for the next day or two, no strenuous activities or heavy lifting to allow your back to continue resting. Apply heat to the low back fo 30 minutes, 3-4 times a day. Gentle stretching and massage to your lower back to help relax the muscles after heat. Extra strength Tylenol 500 mg 1-2 tablets every 6-8 hours if needed for the pain. Do not take more than 3000 mg of Tylenol in a 24 hour period. Continue using your Baclofen as prescribed for the muscle spasms. [place] 1 tablet every 4-6 hrs for severe pain. Keep in mind that this also has Tylenol in it. Do not drive, drink alcohol, or operate machinery while you're taking this medication as it may make you drowsy. Follow up with your PCP in the next few days for continued management of your back pain and spasms. Return if any problems with bowel or bladder function, fevers, abdominal pain, or if loss of sensation/movement of lower extremities.
[2017-03-07 08:43] LABS: URINE APPEARANCE CLEAR (CLEAR); URINE BILIRUBIN NEG (NEG); URINE COLOR YELLOW; URINE EPITHELIAL CELL AUTO >30 /lpf (0-5); URINE NITRITE NEG (NEG); URINE PH 6.5 (4.5-7.5); URINE SPECIFIC GRAVITY 1.023 (1.000-1.030); UROBILINOGEN NEG (NEG); ZZUR CULT IF INDIC CLEAN CATCH YES
[2017-03-07 08:48] LABS: MANUAL MICROSCOPIC REQUIRED? NO; REVIEW REQ? NO
[2017-03-07] MEDS ORDERED: DIAZEPAM INJ 5 MG/ML 2 ML CARP IV ONE (09:30)
[2017-03-07] MEDS ORDERED: HYDR-5688 PO (10:09)
[2017-03-07 10:35] VITALS: BP 109/61; PULSE 59; O2SAT 99
== END 2017-03-07 10:42 | disposition home or self-care (01) ==
LOC: C.EDB 07:09
DX: M62.830 Muscle spasm of back (principal); Z79.899 Other long term (current) drug therapy

== ENCOUNTER → 2017-04-09 | Outpatient (CLI) | payer BC ==
[~2017-04-09] MED LIST changes: +FERR1TAB23 PO; +FRCT/ PO; +KETO10TA PO; +MDR4 PO
[2017-04-09 16:06] LABS: LYME DISEASE AB IGG NEG (NEG); LYME DISEASE AB IGM NEG (NEG)
== END | disposition home or self-care (01) ==
LOC: C.LAB 12:42
PROVIDERS: ATTEND Nurse Practitioner Family
DX: Z86.69 Personal history of other diseases of the nervous system and sense organs (principal); K50.90 Crohn's disease, unspecified, without complications

== ENCOUNTER 2017-04-12 06:14 | Emergency (ER) | payer BC ==
[~2017-04-12] VITALS: Ht 165.1 cm; Wt 117.4 kg
[~2017-04-12 06:14] MED LIST changes: -FRCT/ PO; -IBUP-103 PO; -KETO10TA PO; -MDR4 PO
[2017-04-12 06:21] VITALS: TEMP 36.5; Ht 165.1 cm; Wt 117.4 kg
[2017-04-12] MEDS ORDERED: SODIUM CHLORIDE 0.9% 1000ML 1,000 ML IV STA (06:44)
[2017-04-12] MEDS ORDERED: ONDANSETRON 8 MG/54 ML D5W IV STA (06:44)
[2017-04-12] MEDS: MoRPHine SULFATE 4 MG/ML 1 ML CARP\\VIAL IV PRN ×2 (06:57→07:46)
[2017-04-12] MEDS ORDERED: LORAZEPAM 2 MG/ML 1 ML VIAL IV STA (07:01)
[2017-04-12 07:05] LABS: COMPLETE YES; HEMATOCRIT 35.3 % (37-47); IG% 0.7 %; LYMPH % 2.8 %; LYMPH ABS # 0.33 K/uL (1.2-3.4); MEAN CORPUSCULAR HEMOGLOBIN 26.5 pg (25-34); MEAN CORPUSCULAR HGB CONC 33.1 g/dl (32-36); MEAN PLATELET VOLUME 9.7 fL (7.4-10.4); MONO % 8.9 %; NEUT % 87.6 %; PLATELET COUNT 449 K/uL (130-400); RED BLOOD COUNT 4.41 M/uL (4.2-5.4); WHITE BLOOD COUNT 11.62 K/uL (4.8-10.8)
[2017-04-12 07:13] LABS: ALT/SGPT 39 U/L (12-78); BLOOD UREA NITROGEN 14 mg/dl (7-18); BUN/CREATININE RATIO 17.7 (10-20); CALCIUM 9.2 mg/dl (8.5-10.1); CARBON DIOXIDE 24 mmol/L (21-32); CHLORIDE 109 mmol/L (98-107); CREATININE 0.81 mg/dl (0.60-1.20); GLUCOSE 102 mg/dl (70-99); MAGNESIUM 2.1 mg/dl (1.8-2.4); POTASSIUM 3.4 mmol/L (3.5-5.1); SODIUM 143 mmol/L (136-145)
[2017-04-12] MEDS ORDERED: DEXAMETHASONE SOD INJ 10 MG/ML VIAL IV ONE (07:15)
[2017-04-12 07:21] LABS: PARTIAL THROMBOPLASTIN RATIO 0.9; PROTHROMBIN TIME (PATIENT) 10.7 SECONDS (9.0-12.0)
[2017-04-12 07:25] LABS: ALKALINE PHOSPHATASE 69 U/L (45-117); AST/SGOT 20 U/L (15-37)
--- NOTE | 2017-04-12 07:38 | DIAGNOSTIC IMAGING REPORT ---
CT SCAN OF THE BRAIN WITHOUT IV CONTRAST CLINICAL HISTORY: Headache and dizziness. COMPARISON STUDY: CT of the brain dated 05/14/2009. MRI of the brain dated 09/22/2016. TECHNIQUE: Unenhanced axial CT scan of the brain is performed from the vertex to the skull base. Automated dose control exposure was utilized. A dose lowering technique was utilized adhering to the principles of ALARA. CT DOSE: 537.48 mGy.cm FINDINGS: Brain parenchyma: The brain parenchyma is normal in appearance. There is no hemorrhage, mass effect, or evidence of acute territorial ischemia by CT criteria. Pierce-white matter is preserved. No extra-axial fluid collection is seen. Ventricles, sulci, cisterns: Normal in configuration. Intracranial vasculature: The visualized intracranial vasculature at the skull base is normal in appearance. Calvarium: Unremarkable. Sinuses and mastoids: The visualized paranasal sinuses are clear. The mastoid air cells are well pneumatized. Orbits: The bony orbits are grossly intact. IMPRESSION: No acute intracranial abnormality. Electronically signed by: Octavio Collazo M.D. 04/12/2017 7:36 AM Dictated Date/Time: 04/12/2017 7:34 AM
[2017-04-12 07:43] LABS: URINE APPEARANCE CLEAR (CLEAR); URINE BILIRUBIN NEG (NEG); URINE COLOR YELLOW; URINE EPITHELIAL CELL AUTO >30 /lpf (0-5); URINE NITRITE NEG (NEG); URINE PH 7.5 (4.5-7.5); URINE SPECIFIC GRAVITY 1.012 (1.000-1.030); UROBILINOGEN NEG (NEG); ZZUR CULT IF INDIC CLEAN CATCH NO
[2017-04-12 07:47] LABS: MANUAL MICROSCOPIC REQUIRED? NO; REVIEW REQ? NO
[2017-04-12 07:49] VITALS: PULSE 47; O2SAT 96
--- NOTE | 2017-04-12 07:54 | DIAGNOSTIC IMAGING REPORT ---
SINGLE VIEW CHEST CLINICAL HISTORY: Weakness. Change in mental status. Migraine headache. Nausea and vomiting. FINDINGS: An AP, portable, upright chest radiograph is compared to study dated 12/23/2016. Correlation is made with chest CT dated 12/02/2013. The examination is mildly degraded by portable technique and patient rotation. The cardiomediastinal silhouette is unremarkable. The lungs and pleural spaces are clear. No pneumothorax is seen. The bony thorax is grossly intact. IMPRESSION: No active disease in the chest. Electronically signed by: Octavio Collazo M.D. 04/12/2017 7:53 AM Dictated Date/Time: 04/12/2017 7:52 AM
[2017-04-12 08:01] VITALS: BP 159/83
--- NOTE | 2017-04-12 08:07 | EMERGENCY ROOM VISIT NOTE ---
History Report prepared by Remi: Rody Reynaga Under the Supervision of: Dr. Tim Calderon D.O. First contact with patient: 06:42 Chief Complaint: HEADACHE Stated Complaint: MIGRAINE,DIARRHEA,STOMACH PAIN,MS,CHRONS,DIZZY,SOB History of Present Illness The patient is a 37 year old female who presents to the Emergency Room with complaints of a persistent headache starting this morning. She currently rates her discomfort as a 10/10 in severity. She has had headache before, but never this severely. Her headache is in the front of her head. Her symptoms began with headache, followed by nausea, vomiting, and diarrhea. She is also feeling hot, shaky, and cold. She reports she is SOB which she thinks might be anxiety. She denies any fever. She has had 4-5 episodes of diarrhea. She has a history of Crohn's disease and has had diarrhea in the past. She notes that she has had IV Solu Medrol the past 3 days for her MS symptoms. She had been having back spasms which have improved after the Solu Medrol. She has received this before, but has not reacted like this. Source of History: patient Onset: this morning Position: head Symptom Intensity: 10/10 Quality: ache Timing: other (persistent) Associated Symptoms: + chills, + SOB, + nausea, + vomiting, + diarrhea, No fevers Review of Systems See HPI for pertinent positives & negatives. A total of 10 systems reviewed and were otherwise negative. Past Medical & Surgical Medical Problems: (1) Multiple sclerosis Family History Diabetes mellitus Heart disease Hypertension Kidney disease Lung disease Social History Smoking Status: Never Smoker Alcohol Use: none Drug Use: none Marital Status: Housing Status: lives with family Occupation Status: employed Current/Historical Medications Scheduled Cholecalciferol (D 5000), 5,000 UNITS PO QAM Clonazepam (Klonopin), 1 MG PO BID Ferrous Sulfate (Iron), 325 MG PO DAILY Fingolimod Hcl (Gilenya), 0.5 MG PO QAM Fish Oil ([place]-3), 1 CAP PO QAM Levonorgestrel-Eth Estradiol ( (Levonest), 1 TAB PO DAILY Mesalamine (Lialda), 2.4 GM PO BID Sertraline (Zoloft), 25 MG PO DAILY Scheduled PRN Baclofen (Lioresal), 10 MG PO Q6H PRN for Muscle Spasms Allergies Coded Allergies: Sulfa Drugs (Verified Allergy, Mild, RASH, 04/10/17) Adhesives (Verified Allergy, Unknown, RASH, 04/10/17) Nickel (Verified Allergy, Unknown, "ITCHY, RED BUMPS", 04/10/17) Nitrofurantoin (Verified Allergy, Unknown, RASH, 04/10/17) Penicillins (Verified Allergy, Unknown, ITCHY, NAUSEATED, 04/10/17) Physical Exam Vital Signs Date Time Temp Pulse Resp B/P (MAP) Pulse Ox O2 Delivery O2 Flow Rate FiO2 04/12/17 08:01 159/83 04/12/17 07:49 47 21 96 04/12/17 07:44 40 18 94 04/12/17 07:33 164/85 04/12/17 07:17 44 04/12/17 07:07 194/88 04/12/17 06:21 36.5 59 18 202/86 98 Room Air Physical Exam CONSTITUTIONAL/VITAL SIGNS: Reviewed / noted above. GENERAL: Non-toxic in appearance. INTEGUMENTARY: Warm, dry, and [place]. HEAD: Normocephalic. EYES: without scleral icterus or trauma. ENT/OROPHARYNX: clear and moist. LYMPHADENOPATHY/NECK: Is supple without lymphadenopathy or meningismus. RESPIRATORY: Lungs clear and equal. CARDIOVASCULAR: Regular rate and rhythm. GI/ABDOMEN: Soft and nontender. No organomegaly or pulsatile mass. No rebound or guarding. Normal bowel sounds. EXTREMITIES: Warm and well perfused. BACK: No CVA tenderness. NEUROLOGICAL: Intact without focal deficits. PSYCHIATRIC: normal affect. MUSCULOSKELETAL: Normally developed with good muscle tone. Medical Decision & Procedures ER Provider Diagnostic Interpretation: X ray results and stated below per my interpretation and radiology interpretation. Radiology results as stated below per my review and radiologist interpretation: SINGLE VIEW CHEST CLINICAL HISTORY: Weakness. Change in mental status. Migraine headache. Nausea and vomiting. FINDINGS: An AP, portable, upright chest radiograph is compared to study dated 12/23/2016. Correlation is made with chest CT dated 12/02/2013. The examination is mildly degraded by portable technique and patient rotation. The cardiomediastinal silhouette is unremarkable. The lungs and pleural spaces are clear. No pneumothorax is seen. The bony thorax is grossly intact. IMPRESSION: No active disease in the chest. Electronically signed by: Octavio Collazo M.D. 04/12/2017 7:53 AM Dictated Date/Time: 04/12/2017 7:[address] SCAN OF THE BRAIN WITHOUT IV CONTRAST CLINICAL HISTORY: Headache and dizziness. COMPARISON STUDY: CT of the brain dated 05/14/2009. MRI of the brain dated 09/22/2016. TECHNIQUE: Unenhanced axial CT scan of the brain is performed from the vertex to the skull base. Automated dose control exposure was utilized. A dose lowering technique was utilized adhering to the principles of ALARA. CT DOSE: 537.48 mGy.cm FINDINGS: Brain parenchyma: The brain parenchyma is normal in appearance. There is no hemorrhage, mass effect, or evidence of acute territorial ischemia by CT criteria. Pierce-white matter is preserved. No extra-axial fluid collection is seen. Ventricles, sulci, cisterns: Normal in configuration. Intracranial vasculature: The visualized intracranial vasculature at the skull base is normal in appearance. Calvarium: Unremarkable. Sinuses and mastoids: The visualized paranasal sinuses are clear. The mastoid air cells are well pneumatized. Orbits: The bony orbits are grossly intact. IMPRESSION: No acute intracranial abnormality. Electronically signed by: Octavio Collazo M.D. 04/12/2017 7:36 AM Dictated Date/Time: 04/12/2017 7:34 AM Laboratory Results 04/12/17 06:40 Red Blood Count 4.41, Mean Corpuscular Volume 80.0, Mean Corpuscular Hemoglobin 26.5, Mean Corpuscular Hemoglobin Concent 33.1, Mean Platelet Volume 9.7, Neutrophils (%) (Auto) 87.6, Lymphocytes (%) (Auto) 2.8, Monocytes (%) (Auto) 8.9, Eosinophils (%) (Auto) 0.0, Basophils (%) (Auto) 0.0, Neutrophils # (Auto) 10.18, Lymphocytes # (Auto) 0.33, Monocytes # (Auto) 1.03, Eosinophils # (Auto) 0.00, Basophils # (Auto) 0.00 04/12/17 06:40 Test 04/12/17 06:40 04/12/17 07:00 White Blood Count 11.62 K/uL (4.8-10.8) Red Blood Count 4.41 M/uL (4.2-5.4) Hemoglobin 11.7 g/dL (12.0-16.0) Hematocrit 35.3 % (37-47) Mean Corpuscular Volume 80.0 fL (80-100) Mean Corpuscular Hemoglobin 26.5 pg (25-34) Mean Corpuscular Hemoglobin Concent 33.1 g/dl (32-36) Platelet Count 449 K/uL (130-400) Mean Platelet Volume 9.7 fL (7.4-10.4) Neutrophils (%) (Auto) 87.6 % Lymphocytes (%) (Auto) 2.8 % Monocytes (%) (Auto) 8.9 % Eosinophils (%) (Auto) 0.0 % Basophils (%) (Auto) 0.0 % Neutrophils # (Auto) 10.18 K/uL (1.4-6.5) Lymphocytes # (Auto) 0.33 K/uL (1.2-3.4) Monocytes # (Auto) 1.03 K/uL (0.11-0.59) Eosinophils # (Auto) 0.00 K/uL (0-0.5) Basophils # (Auto) 0.00 K/uL (0-0.2) RDW Standard Deviation 44.7 fL (36.4-46.3) RDW Coefficient of Variation 15.1 % (11.5-14.5) Immature Granulocyte % (Auto) 0.7 % Immature Granulocyte # (Auto) 0.08 K/uL (0.00-0.02) Prothrombin Time 10.7 SECONDS (9.0-12.0) Prothromb Time International Ratio 1.0 (0.9-1.1) Activated Partial Thromboplast Time 22.8 SECONDS (21.0-31.0) Partial Thromboplastin Ratio 0.9 Anion Gap 10.0 mmol/L (3-11) Est Creatinine Clear Calc Drug Dose 119.5 ml/min Estimated GFR () 106.0 Estimated GFR (Non- 91.5 BUN/Creatinine Ratio 17.7 (10-20) Calcium Level 9.2 mg/dl (8.5-10.1) Magnesium Level 2.1 mg/dl (1.8-2.4) Total Bilirubin 0.2 mg/dl (0.2-1) Direct Bilirubin < 0.1 mg/dl (0-0.2) Aspartate Amino Transf (AST/SGOT) 20 U/L (15-37) Alanine Aminotransferase (ALT/SGPT) 39 U/L (12-78) Alkaline Phosphatase 69 U/L (45-117) Troponin I < 0.015 ng/ml (0-0.045) Total Protein 7.2 gm/dl (6.4-8.2) Albumin 3.1 gm/dl (3.4-5.0) Lipase 103 U/L (73-393) Thyroid Stimulating Hormone (TSH) 2.430 uIu/ml (0.300-4.500) Urine Color YELLOW Urine Appearance CLEAR (CLEAR) Urine pH 7.5 (4.5-7.5) Urine Specific [place] 1.012 (1.000-1.030) Urine Protein NEG (NEG) Urine Glucose (UA) NEG (NEG) Urine Ketones NEG (NEG) Urine Occult Blood NEG (NEG) Urine Nitrite NEG (NEG) Urine Bilirubin NEG (NEG) Urine Urobilinogen NEG (NEG) Urine Leukocyte Esterase NEG (NEG) Urine WBC (Auto) 1-5 /hpf (0-5) Urine RBC (Auto) 0-4 /hpf (0-4) Urine Hyaline Casts (Auto) 1-5 /lpf (0-5) Urine Epithelial Cells (Auto) >30 /lpf (0-5) Urine Bacteria (Auto) NEG (NEG) Laboratory results as stated above per my review. Medications Administered Medications (Trade) Dose Ordered Sig/[place] Route Start Time Stop Time Status Last Admin Dose Admin Sodium Chloride 1,000 ml @ 999 mls/hr Q1H1M STAT IV 04/12/17 06:44 04/12/17 07:44 DC 04/12/17 06:53 999 MLS/HR Morphine Sulfate (MoRPHine SULFATE INJ) 4 mg Q1H PRN IV 04/12/17 06:45 04/26/17 06:44 04/12/17 07:46 4 MG Ondansetron HCl (Zofran 8mg Iv) 8 mg NOW STAT IV 04/12/17 06:44 04/12/17 06:46 DC 04/12/17 06:57 8 MG Lorazepam (Ativan Inj) 1 mg NOW STAT IV 04/12/17 07:01 04/12/17 07:02 DC 04/12/17 07:21 1 MG Dexamethasone Sodium Phosphate (Decadron Inj) 10 mg NOW ONCE IV 04/12/17 07:15 04/12/17 07:16 DC 04/12/17 07:21 10 MG ECG Indication: bradycardia Rate (beats per minute): 43 Rhythm: sinus bradycardia Findings: no ectopy, other (no acute injury) ED Course 0655: Previous medical records were reviewed. The patient was evaluated in room B9. A complete history and physical examination was performed. 0644: Ondansetron HCl 8 mg IV, NSS 1000 ml @ 999 mls/hr IV. 0645: Morphine Sulfate 4 mg IV. 0701: Lorazepam 1 mg IV. 0715: Decadron Inj 10 mg IV. 0808: On reevaluation, the patient is resting comfortably. I discussed the results and findings with the patient. She verbalized agreement of the treatment plan. She was discharged home. Medical Decision Differential includes: Acute intracranial bleed, trauma, meningitis, encephalitis, increased intracranial pressure, mass or mass effect, facial or dental infection, temporal arteritis, CVA, TIA, acute hypertensive emergency, sinusitis, carbon monoxide exposure. This is a 37-year-old female who presents to the ED with a chief complaint of a frontal headache, nausea, vomiting and some diarrhea. The patient states that she has a history of Crohn's disease and has diarrhea so this is not that unusual but the nausea, vomiting and forehead headache is new. The patient states that she received Solu-Medrol 1 g injections once a day over the past 3 days. She was having this for back spasms that was felt to possibly be related to MS exacerbation. The patient states that her headache started last night. It increased gradually. Her initial blood pressure today was elevated. This did improve some during her stay. Her physical exam was unremarkable. A CT scan of the brain and chest x-ray were negative for acute disease. CBC, complete metabolic panel, thyroid function and urine were unremarkable. She was treated with IV fluids, IV Zofran, IV morphine, IV Ativan and IV Decadron. On reassessment, she was feeling better. She is felt to be stable for discharge. Medication Reconcilliation Current Medication List: was personally reviewed by me Blood Pressure Screening Patient's blood pressure: Elevated blood pressure Blood pressure disposition: Referred to PCP Impression Primary Impression: Headache Additional Impressions: Vomiting Anxiety Scribe Attestation The scribe's documentation has been prepared under my direction and personally reviewed by me in its entirety. I confirm that the note above accurately reflects all work, treatment, procedures, and medical decision making performed by me. Departure Information Dispostion Home / Self-Care Referrals Vanesa Witt (PCP) Patient Instructions My [facility] Additional Instructions Rest. Drink fluids. Follow-up with your doctor for further care and evaluation in 1-2 days. Return to the emergency department for worsening or new symptoms or any concerns. You have been examined and treated today on an emergency basis only. This is not a substitute for, or an effort to provide, complete comprehensive medical care. It is impossible to recognize and treat all injuries or illnesses in a single emergency department visit. It is therefore important that you follow up closely with your doctor. Call as soon as possible for an appointment. Problem Qualifiers
== END 2017-04-12 08:24 | disposition home or self-care (01) ==
LOC: C.EDB 06:15
DX: R51 Headache (principal); R11.2 Nausea with vomiting, unspecified; F41.9 Anxiety disorder, unspecified; R19.7 Diarrhea, unspecified; R06.02 Shortness of breath; R00.1 Bradycardia, unspecified; G35 Multiple sclerosis; K50.90 Crohn's disease, unspecified, without complications; Z79.899 Other long term (current) drug therapy; Z82.49 Family history of ischemic heart disease and other diseases of the circulatory system; Z83.3 Family history of diabetes mellitus; Z83.6 Family history of other diseases of the respiratory system; Z84.1 Family history of disorders of kidney and ureter

== ENCOUNTER 2017-04-14 10:21 | Observation (INO) | payer BC ==
[~2017-04-14] VITALS: Ht 165.1 cm; Wt 114.7 kg
[2017-04-14] MEDS ORDERED: PROCHLORPERAZINE 5 MG/ML 2 ML VIAL IV STA (12:29)
[2017-04-14] MEDS ORDERED: SODIUM CHLORIDE 0.9% 1000ML 1,000 ML IV STA (12:29)
[2017-04-14] MEDS ORDERED: DiphenhydrAMINE HCL 50 MG/ML VIAL IV STA (12:29)
[2017-04-14] MEDS ORDERED: ONDANSETRON INJ 2 MG/ML 2 ML VIAL IV STA (12:29)
[2017-04-14] MEDS ORDERED: OPTIRAY 320 IV PRN (12:45)
[2017-04-14] MEDS ORDERED: MAGNESIUM SULFATE 1GM / D5W 1 GM BAG IV STA (12:52)
[2017-04-14 13:09] LABS: BASO % 0.1 %; BASO ABS # 0.01 K/uL (0-0.2); COMPLETE YES; EOS % 1.3 %; HEMATOCRIT 39.2 % (37-47); IG% 2.3 %; LYMPH % 9.3 %; LYMPH ABS # 0.65 K/uL (1.2-3.4); MEAN CORPUSCULAR HEMOGLOBIN 26.2 pg (25-34); MEAN CORPUSCULAR HGB CONC 32.4 g/dl (32-36); MEAN PLATELET VOLUME 9.9 fL (7.4-10.4); MONO % 3.7 %; NEUT % 83.3 %; PLATELET COUNT 419 K/uL (130-400); RED BLOOD COUNT 4.84 M/uL (4.2-5.4)
[2017-04-14 13:21] LABS: BUN/CREATININE RATIO 20.5 (10-20); CALCIUM 9.1 mg/dl (8.5-10.1); CREATININE 0.91 mg/dl (0.60-1.20); POTASSIUM 3.4 mmol/L (3.5-5.1)
[2017-04-14 13:26] LABS: PROTHROMBIN TIME (PATIENT) 10.7 SECONDS (9.0-12.0)
--- NOTE | 2017-04-14 14:24 | DIAGNOSTIC IMAGING REPORT ---
ANGIOGRAPHY HEAD COMBO CLINICAL HISTORY: 37 years-old Female with acute migraine. COMPARISON STUDY: CT head 04/12/2017. TECHNIQUE: Unenhanced axial CT scan of the brain is performed. Subsequently, following the IV administration of 93 mL of Optiray 320, CT angiogram of the brain was performed from the skull base to the vertex. Images are reviewed in the axial, sagittal, and coronal planes. 3-D MIPS images are created and assessed. IV contrast was administered without complication. A dose lowering technique was utilized adhering to the principles of ALARA. CT DOSE: 693.78 mGy.cm FINDINGS: Brain parenchyma: The brain parenchyma is normal in appearance. There is no hemorrhage, mass effect, or evidence of acute territorial ischemia by CT criteria. There is no evidence of enhancing mass lesion on the angiogram phase images. No extra-axial fluid collection is seen. Pierce-white matter differentiation is preserved. Ventricles, sulci, and cisterns: Normal in configuration. CT ANGIOGRAM OF THE BRAIN: The internal carotid arteries are widely patent, as are the anterior and middle cerebral arteries. The vertebrobasilar system and posterior cerebral arteries are widely patent. There is no aneurysm, high-grade stenosis, or focal vessel cutoff identified throughout the intracranial circulation. Dural sinuses: Clear as visualized. Orbits: The bony orbits are intact. The orbital contents are normal as visualized. Sinuses and mastoids: The visualized paranasal sinuses are clear with the exception of minimal partially imaged polypoid mucosal thickening of the inferior left maxillary sinus. The mastoid air cells are well pneumatized. Calvarium: Unremarkable. IMPRESSION: 1. No acute intracranial abnormality. 2. Unremarkable CTA of the head without aneurysm, dissection, high-grade stenosis or proximal branch occlusion. The above report was generated using voice recognition software. It may contain grammatical, syntax or spelling errors. Electronically signed by: Ambrosio aPcheco M.D. 04/14/2017 2:23 PM Dictated Date/Time: 04/14/2017 2:14 PM
[2017-04-14] MEDS ORDERED: BACLOFEN 10 MG TAB PO PRN (15:45)
[2017-04-14] MEDS ORDERED: MoRPHine SULFATE 4 MG/ML 1 ML CARP\\VIAL IV PRN (15:45)
[2017-04-14] MEDS ORDERED: MAGNESIUM HYDROXIDE SUSP 30 ML UDC PO PRN (15:45)
[2017-04-14] MEDS ORDERED: POLYETHYLENE (MIRALAX) 17 GM PACK PO PRN (15:45)
[2017-04-14] MEDS ORDERED: ACETAMINOPHEN 325 MG TAB PO PRN (15:45)
[2017-04-14] MEDS ORDERED: ALUMINUM/MAGNESIUM/SIMETH (MAALOX MAX) 30 ML UDC PO PRN (15:45)
[2017-04-14] MEDS ORDERED: ONDANSETRON INJ 2 MG/ML 2 ML VIAL IV PRN (15:45)
[2017-04-14] MEDS ORDERED: SUMATRIPTAN SUCCINATE 6 MG/0.5 ML VIAL SQ STA (15:53)
[2017-04-14] MEDS ORDERED: VALPROATE SOD IV 500 MG in DEXTROSE 5% 50ML 50 ML IV ONE (16:00)
[2017-04-14 16:19] VITALS: O2SAT 95; Ht 165.1 cm; Wt 114.7 kg
[2017-04-14 16:30] VITALS: BP 186/112; PULSE 48; TEMP 36.9; O2SAT 95
[2017-04-14] MEDS: KETOROLAC TROMETHAMINE 15 MG/ML VIAL IV PRN (16:54)
--- NOTE | 2017-04-14 17:22 | EMERGENCY ROOM VISIT NOTE ---
History Report prepared by Remi: Spencer Davis Under the Supervision of: Dr. Waqar Giron D.O. First contact with patient: 12:04 Chief Complaint: REFERRED BY DOCTOR Stated Complaint: DOC REFERRED;MIGRAINE History of Present Illness The patient is a 37 year old female who presents to the Emergency Room with complaints of an intermittent headache beginning two days ago. She has a history of MS and was diagnosed 7 years ago. She was referred to the ED by her neurologist. The patient states that she was on 1 gm of IV Solu-Medrol for three days last week. She also complains of diarrhea, dizziness, and difficulty with hearing and seeing. She does not have a history of migraines, and does not frequently get headaches. The patient states that Toradol has improved her symptoms. She has no history of brain trauma or bleeding. She states that she has had two similar episodes in the past, one of which was associated with IV steroid use. The patient denies any fevers, weakness, visual changes, or numbness. Source of History: patient Onset: Two days ago Position: head Timing: intermittent Modifying Factors (Relieving): other (Toradol) Associated Symptoms: + diarrhea, No fevers, No weakness, No numbness Note: Additional symptoms: difficulty seeing and hearing, and dizziness. Review of Systems See HPI for pertinent positives & negatives. A total of 10 systems reviewed and were otherwise negative. Past Medical & Surgical Medical Problems: (1) Migraine (2) Multiple sclerosis Family History Diabetes mellitus Heart disease Hypertension Kidney disease Lung disease Social History Smoking Status: Former Smoker Alcohol Use: none Drug Use: none Marital Status: Housing Status: lives with family Occupation Status: employed Current/Historical Medications Scheduled Cholecalciferol (D 5000), 5,000 UNITS PO QAM Clonazepam (Klonopin), 1 MG PO BID Ferrous Sulfate (Iron), 325 MG PO DAILY Fingolimod Hcl (Gilenya), 0.5 MG PO QAM Fish Oil (Mongo-3), 1 CAP PO QAM Levonorgestrel-Eth Estradiol ( (Levonest), 1 TAB PO DAILY Mesalamine (Lialda), 2.4 GM PO BID Sertraline (Zoloft), 25 MG PO DAILY Scheduled PRN Baclofen (Lioresal), 10 MG PO Q6H PRN for Muscle Spasms Allergies Coded Allergies: Sulfa Drugs (Verified Allergy, Mild, RASH, 8/22/17) Adhesives (Verified Allergy, Unknown, RASH, 04/14/17) Nickel (Verified Allergy, Unknown, "ITCHY, RED BUMPS", 04/14/17) Nitrofurantoin (Verified Allergy, Unknown, RASH, 04/14/17) Penicillins (Verified Allergy, Unknown, ITCHY, NAUSEATED, 04/14/17) Physical Exam Vital Signs Date Time Temp Pulse Resp B/P (MAP) Pulse Ox O2 Delivery O2 Flow Rate FiO2 04/14/17 15:02 50 18 160/83 95 Room Air 04/14/17 13:42 45 20 147/85 95 Room Air 04/14/17 12:32 50 18 164/78 98 Room Air 04/14/17 10:28 36.7 58 18 170/90 99 Room Air Physical Exam GENERAL: sitting up in bed, disheveled, minimal distress. HEAD: Acute tenderness over the bilateral frontal forehead on palpation. EYE EXAM: normal conjunctiva, PERRL and EOM's intact OROPHARYNX: no exudate, no erythema, lips, buccal mucosa, and tongue normal and mucous membranes are moist NECK: supple, no nuchal rigidity, no adenopathy, non-tender LUNGS: Clear to auscultation. Normal chest wall mechanics HEART: no murmurs, S1 normal and S2 normal ABDOMEN: abdomen soft, non-tender, normo-active bowel sounds, no masses, no rebound or guarding. BACK: Back is symmetrical on inspection and there is no deformity, no midline tenderness, no CVA tenderness. SKIN: no rashes and no bruising UPPER EXTREMITIES: upper extremities are grossly normal. LOWER EXTREMITIES: No pitting edema. NEURO EXAM: Normal sensorium, cranial nerves II-XII intact, normal speech, no weakness of arms, no weakness of legs. No drift. Finger to nose intact. Gross sensation intact. Medical Decision & Procedures ER Provider Diagnostic Interpretation: CT:Per my review, radiologist interpretation. ANGIOGRAPHY HEAD COMBO FINDINGS: Brain parenchyma: The brain parenchyma is normal in appearance. There is no hemorrhage, mass effect, or evidence of acute territorial ischemia by CT criteria. There is no evidence of enhancing mass lesion on the angiogram phase images. No extra-axial fluid collection is seen. Pierce-white matter differentiation is preserved. Ventricles, sulci, and cisterns: Normal in configuration. CT ANGIOGRAM OF THE BRAIN: The internal carotid arteries are widely patent, as are the anterior and middle cerebral arteries. The vertebrobasilar system and posterior cerebral arteries are widely patent. There is no aneurysm, high-grade stenosis, or focal vessel cutoff identified throughout the intracranial circulation. Dural sinuses: Clear as visualized. Orbits: The bony orbits are intact. The orbital contents are normal as visualized. Sinuses and mastoids: The visualized paranasal sinuses are clear with the exception of minimal partially imaged polypoid mucosal thickening of the inferior left maxillary sinus. The mastoid air cells are well pneumatized. Calvarium: Unremarkable. IMPRESSION: 1. No acute intracranial abnormality. 2. Unremarkable CTA of the head without aneurysm, dissection, high-grade stenosis or proximal branch occlusion. The above report was generated using voice recognition software. It may contain grammatical, syntax or spelling errors. Electronically signed by: Ambrosio Pacheco M.D. Laboratory Results 04/14/17 11:10 Red Blood Count 4.84, Mean Corpuscular Volume 81.0, Mean Corpuscular Hemoglobin 26.2, Mean Corpuscular Hemoglobin Concent 32.4, Mean Platelet Volume 9.9, Neutrophils (%) (Auto) 83.3, Lymphocytes (%) (Auto) 9.3, Monocytes (%) (Auto) 3.7, Eosinophils (%) (Auto) 1.3, Basophils (%) (Auto) 0.1, Neutrophils # (Auto) 5.83, Lymphocytes # (Auto) 0.65, Monocytes # (Auto) 0.26, Eosinophils # (Auto) 0.09, Basophils # (Auto) 0.01 04/14/17 11:10 Test 04/14/17 11:10 White Blood Count 7.00 K/uL (4.8-10.8) Red Blood Count 4.84 M/uL (4.2-5.4) Hemoglobin 12.7 g/dL (12.0-16.0) Hematocrit 39.2 % (37-47) Mean Corpuscular Volume 81.0 fL (80-100) Mean Corpuscular Hemoglobin 26.2 pg (25-34) Mean Corpuscular Hemoglobin Concent 32.4 g/dl (32-36) Platelet Count 419 K/uL (130-400) Mean Platelet Volume 9.9 fL (7.4-10.4) Neutrophils (%) (Auto) 83.3 % Lymphocytes (%) (Auto) 9.3 % Monocytes (%) (Auto) 3.7 % Eosinophils (%) (Auto) 1.3 % Basophils (%) (Auto) 0.1 % Neutrophils # (Auto) 5.83 K/uL (1.4-6.5) Lymphocytes # (Auto) 0.65 K/uL (1.2-3.4) Monocytes # (Auto) 0.26 K/uL (0.11-0.59) Eosinophils # (Auto) 0.09 K/uL (0-0.5) Basophils # (Auto) 0.01 K/uL (0-0.2) RDW Standard Deviation 43.3 fL (36.4-46.3) RDW Coefficient of Variation 14.7 % (11.5-14.5) Immature Granulocyte % (Auto) 2.3 % Immature Granulocyte # (Auto) 0.16 K/uL (0.00-0.02) Prothrombin Time 10.7 SECONDS (9.0-12.0) Prothromb Time International Ratio 1.0 (0.9-1.1) Anion Gap 6.0 mmol/L (3-11) Est Creatinine Clear Calc Drug Dose 104.9 ml/min Estimated GFR () 92.1 Estimated GFR (Non- 79.5 BUN/Creatinine Ratio 20.5 (10-20) Calcium Level 9.1 mg/dl (8.5-10.1) Chemistry Specimen Hemolysis Laboratory results per my review. Medications Administered Medications (Trade) Dose Ordered Sig/Korina Route Start Time Stop Time Status Last Admin Dose Admin Sodium Chloride 1,000 ml @ 999 mls/hr Q1H1M STAT IV 04/14/17 12:29 04/14/17 13:29 DC 04/14/17 12:41 999 MLS/HR Ondansetron HCl (Zofran Inj) 4 mg NOW STAT IV 04/14/17 12:29 04/14/17 12:30 DC 04/14/17 12:40 4 MG Prochlorperazine Edisylate (Compazine Inj) 10 mg NOW STAT IV 04/14/17 12:29 04/14/17 12:30 DC 04/14/17 12:40 10 MG Diphenhydramine HCl (Benadryl Inj) 50 mg NOW STAT IV 04/14/17 12:29 04/14/17 12:30 DC 04/14/17 12:41 50 MG Magnesium Sulfate (Magnesium Sulfate) 1 gm NOW STAT IV 04/14/17 12:52 04/14/17 12:53 DC 04/14/17 13:05 1 GM Ketorolac Tromethamine (Toradol Inj) 15 mg Q6H PRN IV 04/14/17 15:45 04/19/17 15:44 04/14/17 16:54 15 MG ED Course ED COURSE: Vital signs were reviewed and showed hypertension The patients medical record was reviewed The above diagnostic studies were performed and reviewed. ED treatments and interventions as stated above. 1217: The patient was evaluated in room C11B. A complete history and physical examination was performed. 1229: Ordered Benadryl Inj 50 mg IV, Compazine Inj 10 mg IV, Zofran Inj 4 mg IV , Sodium Chloride 1000 ml @ 999 mls/hr IV. 1252: Ordered Magnesium Sulfate 1 gm IV. 1457: Upon reevaluation, the patient is resting. I discussed my findings with the patient and she understands and agrees with the treatment plan. Based on the patients age, coexisting illnesses, exam and lab findings the decision to treat as an inpatient was made. The patient remained stable while under my care. The patient will be evaluated for further management. Medical Decision Differential Diagnosis includes but is not limited to headache, tension headache , cluster headache, migraine, subarachnoid hemorrhage, meningitis, mass, central venous thrombus, concussion, trauma and epidural/subdural hemorrhage. Patient is a 37-year-old female who presents the ER for headache which has been worsening for the past 2 days. This has been coming and going. No exacerbating or remitting factors. CBC PCP and discussed with her neurologist prior to arrival and he recommended admission. She has been on steroids for MS flare 3 days as well. Headache came on gradually and progressively worsened. No signs of meningitis or encephalitis on exam. No fevers. Not consistent with SAH. CT and urine head shows no aneurysms. Discussed with Dr. Bates who is on-call he recommended admission following his chest with Dr. Funes. Patient was given IV fluids, Benadryl and Compazine. She had improvement of her pain. Current plan by Neuro is admission with MRI of the head and neck and LP for possible MS flare. Medication Reconcilliation Current Medication List: was personally reviewed by me Blood Pressure Screening Patient's blood pressure: Elevated blood pressure Blood pressure disposition: Referred to PCP Consults Time Called: 1245 Consulting Physician: Dr. Bates -Neurology Returned Call: [phone] I reviewed the patient's case with Dr. Bates. He recommends that the patient be admitted for pain control. Additional Consults: Time Called: [phone] Consulted Physician: Dr. Lim -[facility] [place] Returned Call: [phone] Additional Comments: I reviewed the patient's case with Dr. Lim. [facility] will evaluate the patient for further management. Impression Primary Impression: Headache Scribe Attestation The scribe's documentation has been prepared under my direction and personally reviewed by me in its entirety. I confirm that the note above accurately reflects all work, treatment, procedures, and medical decision making performed by me. Departure Information Dispostion Being Evaluated By Hospitalist Referrals Vanesa Witt (PCP) Patient Instructions My [facility] Problem Qualifiers Primary Impression: Headache Headache type: unspecified Headache chronicity pattern: unspecified pattern Intractability: intractable Qualified Codes: R51 - Headache
[2017-04-14 17:30] VITALS: BP 181/105; PULSE 48
[2017-04-14] MEDS: SODIUM CHLOR 0.45% + 20MEQ KCL 1,000 ML IV SCH (17:33)
[2017-04-14] MEDS ORDERED: HydrALAZINE HCL 20 MG/ML VIAL IV. PRN (17:45)
[2017-04-14] MEDS ORDERED: HydrALAZINE HCL 20 MG/ML VIAL ONE (18:15)
[2017-04-14 18:23] VITALS: BP 173/101; PULSE 52
--- NOTE | 2017-04-14 20:04 | History and Physical ---
History & Physical Date & Time of Service: Apr 14, 2017 at 20:03 Chief Complaint: Migraine Primary Care Physician: Les Funes M.D. Family History Diabetes mellitus Heart disease Hypertension Kidney disease Lung disease Social History Smoking Status: Former Smoker Drug Use: none Marital Status: Housing status: lives with family Occupational Status: employed Multi-Drug Resistant Organisms History of MDRO: No Allergies Coded Allergies: Sulfa Drugs (Verified Allergy, Mild, RASH, 04/14/17) Adhesives (Verified Allergy, Unknown, RASH, 04/14/17) Nickel (Verified Allergy, Unknown, "ITCHY, RED BUMPS", 04/14/17) Nitrofurantoin (Verified Allergy, Unknown, RASH, 04/14/17) Penicillins (Verified Allergy, Unknown, ITCHY, NAUSEATED, 04/14/17) Home Medications Scheduled Cholecalciferol (D 5000), 5,000 UNITS PO QAM Clonazepam (Klonopin), 1 MG PO BID Ferrous Sulfate (Iron), 325 MG PO DAILY Fingolimod Hcl (Gilenya), 0.5 MG PO QAM Fish Oil (Everett-3), 1 CAP PO QAM Levonorgestrel-Eth Estradiol ( (Levonest), 1 TAB PO DAILY Mesalamine (Lialda), 2.4 GM PO BID Sertraline (Zoloft), 25 MG PO DAILY Scheduled PRN Baclofen (Lioresal), 10 MG PO Q6H PRN for Muscle Spasms Physical Exam Vital Signs Date Time Temp Pulse Resp B/P (MAP) Pulse Ox O2 Delivery O2 Flow Rate FiO2 04/14/17 18:23 52 173/101 (125) 04/14/17 17:30 48 181/105 (130) 04/14/17 16:30 36.9 48 18 186/112 (136) 95 Room Air 04/14/17 16:19 95 Room Air 04/14/17 15:02 50 18 160/83 95 Room Air 04/14/17 13:42 45 20 147/85 95 Room Air 04/14/17 12:32 50 18 164/78 98 Room Air 04/14/17 10:28 36.7 58 18 170/90 99 Room Air Diagnostics Laboratory Results Results Past 24 Hours Test 04/14/17 11:10 Range/Units White Blood Count 7.00 4.8-10.8 K/uL Red Blood Count 4.84 4.2-5.4 M/uL Hemoglobin 12.7 12.0-16.0 g/dL Hematocrit 39.2 37-47 % Mean Corpuscular Volume 81.0 80-100 fL Mean Corpuscular Hemoglobin 26.2 25-34 pg Mean Corpuscular Hemoglobin Concent 32.4 32-36 g/dl Platelet Count 419 130-400 K/uL Mean Platelet Volume 9.9 7.4-10.4 fL Neutrophils (%) (Auto) 83.3 % Lymphocytes (%) (Auto) 9.3 % Monocytes (%) (Auto) 3.7 % Eosinophils (%) (Auto) 1.3 % Basophils (%) (Auto) 0.1 % Neutrophils # (Auto) 5.83 1.4-6.5 K/uL Lymphocytes # (Auto) 0.65 1.2-3.4 K/uL Monocytes # (Auto) 0.26 0.11-0.59 K/uL Eosinophils # (Auto) 0.09 0-0.5 K/uL Basophils # (Auto) 0.01 0-0.2 K/uL RDW Standard Deviation 43.3 36.4-46.3 fL RDW Coefficient of Variation 14.7 11.5-14.5 % Immature Granulocyte % (Auto) 2.3 % Immature Granulocyte # (Auto) 0.16 0.00-0.02 K/uL Prothrombin Time 10.7 9.0-12.0 SECONDS Prothromb Time International Ratio 1.0 0.9-1.1 Sodium Level 140 136-145 mmol/L Potassium Level 3.4 3.5-5.1 mmol/L Chloride Level 106 98-107 mmol/L Carbon Dioxide Level 28 21-32 mmol/L Anion Gap 6.0 3-11 mmol/L Blood Urea Nitrogen 19 7-18 mg/dl Creatinine 0.91 0.60-1.20 mg/dl Est Creatinine Clear Calc Drug Dose 104.9 ml/min Estimated GFR () 92.1 Estimated GFR (Non- 79.5 BUN/Creatinine Ratio 20.5 10-20 Random Glucose 78 70-99 mg/dl Calcium Level 9.1 8.5-10.1 mg/dl Chemistry Specimen Hemolysis Impression Assessment and Plan obs #[id number] Advanced Directives Existing Living Will: No Existing Power of Pre Owned Sales Consultant: No VTE Prophylaxis VTE Risk Assessment Done? Y/N: Yes Risk Level: Moderate Given or contraindicated: Enoxaparin (Lovenox)SQ
[2017-04-14] MEDS ORDERED: POTASSIUM CHLORIDE 10 MEQ TABCR PO ONE (20:15)
[2017-04-14] MEDS ORDERED: METHYLPREDNISOLONE 4 MG TAB PO SCH (20:15)
[2017-04-14] MEDS ORDERED: ENOXAPARIN 40 MG/0.4 ML SYR SQ SCH (21:00)
[2017-04-14] MEDS ORDERED: MESALAMINE 400 MG CAPDR PO SCH (21:00)
[2017-04-14] MEDS: CLONAZEPAM 1 MG TAB PO SCH (21:09)
[2017-04-14 21:13] VITALS: BP 138/83; PULSE 56
[2017-04-14] MEDS ORDERED: IV FLUIDS COMPLETED PRN (21:15)
--- NOTE | 2017-04-14 21:42 | HISTORY & PHYSICAL EXAMINATION ---
DATE OF ADMISSION: 04/14/2017 CHIEF COMPLAINT: Severe headache. HISTORY OF PRESENT ILLNESS: The patient is a very pleasant 37-year-old female with about 7-year history of MS, who notes that about 2 weeks ago she was starting to have a lot of back spasms. Her neurologist saw her on 04/03/2017 and recommended getting up-to-date MRIs of cervical and thoracic spine, concerned that the spasms may be related to spinal cord flareup of MS. She then was started on oral steroids that were not helping much and then she was given IV steroids, she notes which she remembers being a gram of Solu-Medrol daily for 3 days. She notes then that at the end of this, she started with really severe headache. The headache is bitemporal and frontal. She has photophobia and phonophobia. Earlier she had some nausea, although fortunately none now. She has not had vomiting. She has not been able to do anything to get the headache to go away. She does not, however, have ongoing back spasms. She does not have any blurred vision, double vision, eye tracking problems. She does not have any numbness or weakness. She has no symptoms that remind her of her MS. She has never had a headache like this with her MS flares. She notes she maybe had a couple of migraines in her life but they are too far and few between to really remember what they are like. REVIEW OF SYSTEMS: Otherwise entirely negative except for as above. PAST MEDICAL HISTORY: Most notable for MS, which she has had for 7 years, actively follows with Dr. Funes. She also has GERD, anemia, vitamin D deficiency. PAST SURGICAL HISTORY: Colposcopy, D&C. HOME MEDICATIONS: Are noted to be baclofen 20 mg b.i.d., clonazepam daily, control daily, fish oil 1000 mg daily, GILENYA 0.5 mg daily, mesalamine, sertraline 50 mg in the morning and 25 in the evening, Zanaflex 4 mg at bedtime, vitamin B complex daily, vitamin D 2000 international units daily. FAMILY HISTORY: Her dad has diabetes. SOCIAL HISTORY: She is . No drugs. Former smoker. ALLERGIES: ADHESIVES, PACO, NITROFURANTOIN, PENICILLIN AND SULFA. PHYSICAL EXAMINATION: VITAL SIGNS: Her initial vitals showed a temp 36.7, pulse 58, respiratory rate 18, blood pressure 170/90, 99% on room air. GENERAL: She is awake, alert, oriented x3, pleasant but lying very still with her eyes nearly shut and appearing a little bit uncomfortable, quiet speaking and slow movement. HEENT: Normocephalic, atraumatic. Mucous membranes are moist. CARDIOVASCULAR: Regular without rubs, murmurs, or gallops. LUNGS: Clear to auscultation bilaterally. No rales, rhonchi, or wheezes with good effort. ABDOMEN: Soft, nondistended, nontender. No masses or organomegaly. EXTREMITIES: Without cyanosis, clubbing or edema. No calf tenderness. SKIN: Shows no rashes, no pallor or icterus. NEUROLOGIC: Shows cranial nerves II-XII to be grossly intact. Gross motor is equal and intact bilateral upper and lower extremities and sensory is intact and equal to confrontational light touch diffusely. MUSCULOSKELETAL: Yields no gross lesions. MENTAL STATUS: Shows good recent and remote recall. Normal mood and affect. Good judgment and insight. LABS AND DIAGNOSTICS: CT brain angiography shows brain parenchyma normal, no hemorrhage, mass effect or territorial ischemia. Pierce-white differentiation is preserved. Ventricles, sulci, and cisterns are normal in configuration. CT angiogram of the brain shows the internal carotids widely patent as are the anterior and middle cerebral arteries, vertebrobasilar system and posterior cerebral arteries are widely patent. No aneurysm, high grade stenosis, focal cutoff identified throughout the intracranial circulation. Her dural sinuses are clear. Visualized orbits and bones are intact and normal. Essentially normal CT head, CT angio. CBC shows a white count of 7, hemoglobin 12.7, platelets 419. Basic metabolic panel with sodium 140, potassium 3.4, chloride 106, CO2 28, BUN 19, creatinine 0.91, calcium 9.1, glucose 78. PT of 10.7 with an INR of 1. ASSESSMENT AND PLAN: 1. Intractable headache. This actually appears to be intractable migraine, probably provoked by the high dosing of Solu-Medrol. Initially the concern was whether or not this is related to her multiple sclerosis, but she notes having no multiple sclerosis symptoms like this before. She was having potentially multiple sclerosis symptoms of back spasms that have improved with the steroids and certainly when taken out of the context of a patient with multiple sclerosis; all of her symptoms, her physical exam or history fits much more with migraine than anything else. I discussed this with patient and her quite frankly, noting that the main differential would be migraine which appears like or a multiple sclerosis related complication which while less likely is possible and we discussed in length how to proceed. Certainly the considerations from neurology would be for MRI of the brain and the C-spine in addition to the MRIs ordered by Dr. Funes as well as lumbar puncture, but at this point in time, patient notes she is too uncomfortable from the headache to undergo any of this and we discussed then that it would be prudent to go ahead and treat for what it appears to be and if the migraine goes away, she is feeling relatively normal; she can proceed with the remainder of her ongoing multiple sclerosis workup as an outpatient and she and her felt this was the direction they wish to proceed in. Certainly we discussed if she does not improve or if anything new or different particularly neurologically with signs or symptoms appears then MRIs will need to be pursued as an inpatient and they understood this as well. We will try to treat the migraine fairly aggressively given that I do not see any contraindications. We will give her 6 mg of sumatriptan subQ stat as well as 500 mg of Depakote and then treat with p.r.n. as far as Tylenol and Toradol p.r.n. mild or moderate pain, morphine p.r.n. severe pain, have p.r.n. Zofran for nausea, and give her 2 liters of IV fluids, since at least on lab she appears mildly prerenal. 2. Mild prerenal azotemia, likely from poor p.o. intake from the migraine. Given that it has been going on for a couple of days, we will give her 2 liters of fluids and follow her clinical status. 3. Hypokalemia, replete. 4. Elevated blood pressure without a history of hypertension, likely related to pain. Follow for improvement with better control of her pain. 5. Multiple sclerosis. Continue her home meds and ongoing workup as above noted right now as an outpatient. Certainly if her headache does not improve or any new multiple sclerosis symptoms ensue, would need to pursue those as an inpatient along with neurology consult. 6. Deep venous thrombosis prophylaxis, Lovenox. EBTTINAD
[2017-04-14 23:30] VITALS: BP 151/87; PULSE 49; TEMP 37; O2SAT 96
[2017-04-15] VITALS (7 sets, daily range): BP systolic 125–205; BP diastolic 77–120; PULSE 52–69; TEMP 36.8–37; O2SAT 96–99
[2017-04-15] MEDS: SODIUM CHLOR 0.45% + 20MEQ KCL 1,000 ML IV SCH (00:02)
[2017-04-15] MEDS: KETOROLAC TROMETHAMINE 15 MG/ML VIAL IV PRN ×2 (04:47→11:54)
[2017-04-15] MEDS: METHYLPREDNISOLONE 4 MG TAB PO SCH ×2 (06:18→15:43)
[2017-04-15] MEDS: CLONAZEPAM 1 MG TAB PO SCH (08:22)
--- NOTE | 2017-04-15 08:59 | Hospitalist Progress Note ---
Hospitalist Progress Note Date of Service Apr 15, 2017. Subjective Pt evaluation today including: conversation w/ patient, conversation w/ family , physical exam, chart review, lab review, review of studies Pain: temporal headache PO Intake: Good Voiding: no voiding problems The patient was seen and examined this morning. She is with her . She reports her headache today is much better than it was yesterday, rated as a 2/ 10. She denies photophobia or phonophobia currently. Pt admits that she gets anxious easily, and that this has exacerbated her blood pressure in the past, however she normally runs around 100/80. Neurology, Dr. Bates, is present at bedside as well.I will order MRI of the brain , c and t spine today in hopes that this can be accomplished in house vs as an outpatient. No need for LP as there is no sign of infectious process. Constitutional: No fever, No chills, No sweats Eyes: No worsening of vision, No redness, No diplopia ENT: No unusual epistaxis, No nasal symptoms, No trouble swallowing Respiratory: No cough, No shortness of breath, No dyspnea at rest Cardiovascular: No chest pain, No palpitations Abdomen: No pain, No nausea, No vomiting, No diarrhea, No constipation Musculoskeletal: No joint pain, No muscle pain, No swelling Neurologic: No memory loss, No weakness, No numbness/tingling, No balance problems Psychiatric: + anxiety, No depression symptoms Endo: No fatigue Skin: No rash, No itch Objective Vital Signs Date Time Temp Pulse Resp B/P (MAP) Pulse Ox O2 Delivery O2 Flow Rate FiO2 04/15/17 07:12 37.0 52 20 155/90 (111) 97 Room Air 04/15/17 05:37 53 176/111 (132) 04/15/17 04:45 66 18 205/120 (148) 186/110 (135) 04/15/17 00:00 Room Air 04/14/17 23:30 37.0 49 16 151/87 (108) 96 Room Air 04/14/17 21:13 56 138/83 (101) 04/14/17 18:23 52 173/101 (125) 04/14/17 17:30 48 181/105 (130) 04/14/17 16:30 36.9 48 18 186/112 (136) 95 Room Air 04/14/17 16:19 95 Room Air 04/14/17 15:02 50 18 160/83 95 Room Air 04/14/17 13:42 45 20 147/85 95 Room Air 04/14/17 12:32 50 18 164/78 98 Room Air 04/14/17 10:28 36.7 58 18 170/90 99 Room Air Physical Exam General Appearance: WD/WN, no apparent distress, + obese Eyes: PERRL, EOMI ENT: hearing grossly normal, pharynx normal Neck: supple, no JVD Respiratory/Chest: lungs clear, normal breath sounds, no respiratory distress, no accessory muscle use Cardiovascular: regular rate, rhythm (few extra beats auscultated), no murmur Abdomen: normal bowel sounds, non tender, soft Extremities: non-tender, no pedal edema, no calf tenderness Neurologic/Psychiatric: alert, normal mood/affect, oriented x 3 Skin: normal color, warm/dry Laboratory Results Last 24 Hours Test 04/14/17 11:10 White Blood Count 7.00 K/uL Red Blood Count 4.84 M/uL Hemoglobin 12.7 g/dL Hematocrit 39.2 % Mean Corpuscular Volume 81.0 fL Mean Corpuscular Hemoglobin 26.2 pg Mean Corpuscular Hemoglobin Concent 32.4 g/dl Platelet Count 419 K/uL Mean Platelet Volume 9.9 fL Neutrophils (%) (Auto) 83.3 % Lymphocytes (%) (Auto) 9.3 % Monocytes (%) (Auto) 3.7 % Eosinophils (%) (Auto) 1.3 % Basophils (%) (Auto) 0.1 % Neutrophils # (Auto) 5.83 K/uL Lymphocytes # (Auto) 0.65 K/uL Monocytes # (Auto) 0.26 K/uL Eosinophils # (Auto) 0.09 K/uL Basophils # (Auto) 0.01 K/uL RDW Standard Deviation 43.3 fL RDW Coefficient of Variation 14.7 % Immature Granulocyte % (Auto) 2.3 % Immature Granulocyte # (Auto) 0.16 K/uL Prothrombin Time 10.7 SECONDS Prothromb Time International Ratio 1.0 Sodium Level 140 mmol/L Potassium Level 3.4 mmol/L Chloride Level 106 mmol/L Carbon Dioxide Level 28 mmol/L Anion Gap 6.0 mmol/L Blood Urea Nitrogen 19 mg/dl Creatinine 0.91 mg/dl Est Creatinine Clear Calc Drug Dose 104.9 ml/min Estimated GFR () 92.1 Estimated GFR (Non- 79.5 BUN/Creatinine Ratio 20.5 Random Glucose 78 mg/dl Calcium Level 9.1 mg/dl Chemistry Specimen Hemolysis Assessment and Plan This is a 37 yo F with PMHx of MS, migraine, back spasm, Crohns disease, and anxiety Intractable headache / migraine - Probably provoked by the high dosing of Solu-Medrol which was given last , and Sat for back spasms associated with MS which had been ongoing x 1 month. Pt has not had multiple sclerosis symptoms of headache like this before. - Neurology had requested outpatient MRI of the brain, C-spine, T-spine so will order these for in house today. Premedicate with Valium 5 mg PO 30 min prior to MRI. - Continue Sumatriptan 6 mg subQ stat as well as Depakote 500 mg, Tylenol and Toradol p.r.n. mild or moderate pain, morphine p.r.n. severe pain, have p.r.n. Zofran for nausea - s/p 2 L fluids Mild prerenal azotemia - likely from poor p.o. intake from the migraine - s/p 2 U NSS - Following PRP Hypokalemia - Repleted - stable today Elevated blood pressure without a history of hypertension - likely related to pain and anxiety - Hydralazine was administered overnight, will keep this on board PRN. Multiple sclerosis. - Continue her home meds- outpatient workup as above if migraine resolves. Certainly if her headache does not improve or any new multiple sclerosis symptoms ensue, would need to pursue those as an inpatient along with neurology consult. DVT ppx: Lovenox CODE STATUS: FULL CODE Disposition: From home, discharge when medically stable hopefully today after MRIs.
[2017-04-15] MEDS ORDERED: CHOLECALCIFEROL 1000 INTER.UNIT TAB PO SCH (09:00)
[2017-04-15] MEDS ORDERED: FINGOLIMOD 0.5 MG PO SCH (09:00)
[2017-04-15] MEDS ORDERED: OMEGA-3 (PURIFIED FISH OIL) 1 GM CAP PO SCH (09:00)
[2017-04-15] MEDS ORDERED: FERROUS SULFATE 325 MG TAB PO SCH (09:00)
[2017-04-15] MEDS ORDERED: SERTRALINE HCL 50 MG TAB PO SCH (09:00)
[2017-04-15] MEDS ORDERED: MESALAMINE 400 MG CAPDR PO SCH (09:00)
--- NOTE | 2017-04-15 10:46 | Neurology Consultation ---
Neurology Consultation Date of Consultation: Apr 15, 2017. Attending Physician: Waqar Lim D.O. Primary Care Physician: Les Funes M.D. Reason for Consultation: Patient is a 37-year-old, accompanied by her spouse at bedside, who was asked to see the request of Dr. Lim, for neurologic consultation regarding acute headache and multiple sclerosis History of Present Illness Source: patient, caregiver, clinic records, hospital records This patient had issues with gait disturbance, headaches, and memory issues in 2008. MRI at that time showed several spots but no specific diagnosis was made. She was worse by early 2009 and an MRI of the cervical spine in September 2009 showed a few white matter spots intramedullary. Lumbar puncture in October 2009 showed 5 white cells, 0 red cells, a protein of 32, elevated IgG index, and greater than 5 oligoclonal bands not present in the serum. Lyme titers were negative. A diagnosis of multiple sclerosis was made and she was initiated on Copaxone. She did well on this except for some site reactions at times. In 2012 she stopped the Copaxone because of site reaction and the fact that she wanted to get . She did conceive and delivered a child who is currently 3 years old. After delivery she went back on Copaxone for a few months but then again had any significant reaction at the site causing necrosis. Wound care help this and she was off medication for MS until September 2015. During this time, she had no significant flareups. In September 2015, she was initiated on Gilenya which she has been on since. She tolerates this well and has no side effects. She has had no flareups of significance. Approximately one month ago she started having low back spasms. She was doing cross. 3 times a week since the fall and she started seeing a chiropractor, Dr. Dow, about twice per week. She thinks the chiropractic treatments may have initiated the back spasms. Since the fall she has lost over 30 pounds with exercise. Her maximal was 277 pounds. The patient was given 10 days of oral steroids and this resolved the back spasms. After the steroid stopped, she had a significant bifrontal/bitemporal headache for about 2 days. This resolved but the back spasms returned in a very severe nature. On April 03, she saw Dr. Funes. He wanted to get repeat MRIs but she could not tolerate them because of a more recent headache. He initiated IV Solu-Medrol and she received 1 g a day each day on April 09, April 10, on April 11. Her back spasms completely resolved on this. This IV Solu-Medrol was followed by oral tapering Medrol Dosepak. On April 12, she started getting a significant headache. This has persisted up until admission. It's a severe bifrontal/by temporal headache pain of a pounding nature. There is nausea, vomiting, diarrhea. She has photophobia and some sonophobia. Her usual medications did not help much. The patient has not had any new weakness, numbness, or pain in the limbs, balance problems, incontinence, vision problems, problems or cognitive issues. She arrived at the emergency room on April 14, at the advice of Dr. Funes, at 10-8 hours with a temperature 36.7, pulse 58, respiratory rate 18, blood pressure 170/90, and O2 saturation 99%. Neurologic examination was nonfocal and she had no meningeal signs or encephalopathy. She was afebrile. CT angiography of the head was completely unremarkable. CBC and chem profile were normal except for low potassium. In the hospital 6 mg of sumatriptan injection helped her headache. IV Toradol considerably helped her headache. This morning, her headache is one or 2 out of 10 and she is feeling much better with good energy and no other symptoms including no symptoms as listed above. Patient has Crohn's disease which has been active. She's been told by her Crohn 's disease physicians that Tysabri is excellent for Crohn's as well as MS. In January 2017, a B-12 was 1196. ULYSSES virus titers were negative. In March 2017, TSH was 2.4, HLA-B27 was negative, Lyme antibody was negative, and sedimentation rate was 44. It was noted during her hospitalization that at times her headache is more severe she had elevated blood pressure. 0400 hours this morning she had a increased headache but her blood pressure was 2 over 5/120 and 1 arm and 186/ 110 and the other arm. She received IV hydralazine which helped her headache and her blood pressure. Past Medical/Surgical History Medical Problems: (1) Anxiety Status: Acute (2) Anxiety Status: Acute (3) Cramping complicating , antepartum Status: Acute (4) Headache Status: Acute (5) Headache Status: Acute (6) Headache Status: Acute (7) Other specified complication, antepartum Status: Acute (8) Spasm of back muscles Status: Acute (9) Vomiting Status: Acute Multiple sclerosis, stable on Gilenya Crohn's disease Vitamin D deficiency Gastroesophageal reflux disease History of anemia Post D&C with no other surgery. Family History Mother, age 68, has colonic polyps and is otherwise healthy Father age 70 from an MS. He had pulmonary fibrosis, lung cancer, hypertension, diabetes Social History Patient quit cigarette smoking 4 years ago. She does not consume alcohol and has no drug use history. Patient works at [employer] full-time in [employer]. She is also starting graduate school this fall to obtain a masters in Labor Relations Smoking Status: Former smoker Smokeless Tobacco Use: No Alcohol Use: none Drug Use: none Marital Status: Housing Status: lives with family Occupation Status: employed Allergies Coded Allergies: Sulfa Drugs (Verified Allergy, Mild, RASH, 04/14/17) Adhesives (Verified Allergy, Unknown, RASH, 04/14/17) Nickel (Verified Allergy, Unknown, "ITCHY, RED BUMPS", 04/14/17) Nitrofurantoin (Verified Allergy, Unknown, RASH, 04/14/17) Penicillins (Verified Allergy, Unknown, ITCHY, NAUSEATED, 04/14/17) Current Inpatient Medications Current Inpatient Medications Medications (Trade) Dose Ordered Sig/Korina Route Start Time Stop Time Status Last Admin Dose Admin Ioversol (Optiray 320) 100 ml UD PRN IV 04/14/17 12:45 04/18/17 12:44 Enoxaparin Sodium (Lovenox Inj) 40 mg Q24H SQ 04/14/17 21:00 05/14/17 20:59 Acetaminophen (Tylenol Tab) 650 mg Q4H PRN PO 04/14/17 15:45 05/14/17 15:44 Al Hydrox/Mg Hydrox/Simethicone (Maalox Max Susp) 15 ml Q4H PRN PO 04/14/17 15:45 05/14/17 15:44 Magnesium Hydroxide (Milk Of Magnesia Susp) 30 ml Q6H PRN PO 04/14/17 15:45 05/14/17 15:44 Polyethylene (Miralax Powder Packet) 17 gm DAILY PRN PO 04/14/17 15:45 05/14/17 15:44 Ondansetron HCl (Zofran Inj) 4 mg Q6H PRN IV 04/14/17 15:45 05/14/17 15:44 Baclofen (Lioresal Tab) 10 mg Q6H PRN PO 04/14/17 15:45 05/14/17 15:44 Clonazepam (Klonopin Tab) 1 mg BID PO 04/14/17 21:00 05/14/17 20:59 04/15/17 08:22 1 MG Fish Oil ([place]-3 (Purified Fish Oil) Cap) 1 gm QAM PO 04/15/17 09:00 05/15/17 08:59 04/15/17 08:23 1 GM Sertraline HCl (Zoloft Tab) 25 mg DAILY PO 04/15/17 09:00 05/15/17 08:59 04/15/17 08:19 25 MG Cholecalciferol (Vitamin D Tab) 5,000 inter.unit QAM PO 04/15/17 09:00 05/15/17 08:59 04/15/17 08:20 5,000 INTER.UNIT Ferrous Sulfate (Feosol Tab) 325 mg DAILY PO 04/15/17 09:00 05/15/17 08:59 04/15/17 08:19 325 MG Miscellaneous Information (Order Awaiting Action) 1 ea QS N/A 04/15/17 00:00 05/15/17 00:00 Ketorolac Tromethamine (Toradol Inj) 15 mg Q6H PRN IV 04/14/17 15:45 04/19/17 15:44 04/15/17 04:47 15 MG Morphine Sulfate (MoRPHine SULFATE INJ) 4 mg Q4 PRN IV 04/14/17 15:45 04/28/17 15:44 Hydralazine HCl (HydrALAZINE INJ) 10 mg Q6 PRN IV. 04/14/17 17:45 05/14/17 17:44 04/15/17 04:49 10 MG Methylprednisolone (Medrol Tab) 4 mg 07,13,21 PO 04/15/17 07:00 04/15/17 21:01 04/15/17 06:18 4 MG Methylprednisolone (Medrol Tab) 4 mg 07,21 PO 04/16/17 07:00 04/16/17 21:01 Methylprednisolone (Medrol Tab) 4 mg 07 PO 04/17/17 07:00 04/17/17 07:01 Non-Formulary Medication (Non-Formulary Patient'S Own Med) 1 ea DAILY PO 04/15/17 09:00 05/15/17 08:59 UNV Miscellaneous (Iv Fluids Completed) 1 ea PRN PRN N/A 04/14/17 21:15 04/14/18 21:14 Mesalamine (Delzicol Delayed Rel Cap) 1,200 mg QAM PO 04/15/17 09:00 05/14/17 20:59 04/15/17 08:17 1,200 MG Review of Systems Constitutional: No fever, No weakness, No fatigue Eyes: No worsening of vision, No diplopia ENT: No hearing loss, No tinnitus Respiratory: No cough, No shortness of breath Cardiovascular: No chest pain, No palpitations Abdomen: No pain, No nausea Musculoskeletal: No joint pain, No muscle pain Genitourinary - Female: No dysuria, No urinary incontinence Neurologic: No memory loss, No weakness, No numbness/tingling, No vertigo, No balance problems Psychiatric: No depression symptoms, No anxiety Endocrine: No fatigue Hematologic / Lymphatic: No abnormal bleeding/bruising Integumentary: No rash Allergic / Immunologic: No hives Physical Exam Vital Signs (Past 24 Hrs): Date Time Temp Pulse Resp B/P (MAP) Pulse Ox O2 Delivery O2 Flow Rate FiO2 04/15/17 07:12 37.0 52 20 155/90 (111) 97 Room Air 04/15/17 05:37 53 176/111 (132) 04/15/17 04:45 66 18 205/120 (148) 186/110 (135) 04/15/17 00:00 Room Air 04/14/17 23:30 37.0 49 16 151/87 (108) 96 Room Air 04/14/17 21:13 56 138/83 (101) 04/14/17 18:23 52 173/101 (125) 04/14/17 17:30 48 181/105 (130) 04/14/17 16:30 36.9 48 18 186/112 (136) 95 Room Air 04/14/17 16:19 95 Room Air 04/14/17 15:02 50 18 160/83 95 Room Air 04/14/17 13:42 45 20 147/85 95 Room Air 04/14/17 12:32 50 18 164/78 98 Room Air 04/14/17 10:28 36.7 58 18 170/90 99 Room Air Patient is right-handed. The patient is awake and alert. Speech is normal without aphasia or dysarthria. Mentation and thought processes are intact with orientation and normal fund of knowledge. Mood and affect are normal and appropriate. Appearance and grooming are normal. The discs are sharp with positive venous pulsations. There are no exudates, hemorrhages, or blood vessel changes seen. Pupils are 4mm bilaterally and reactive to light. Extraocular eye muscles are intact without nystagmus. Visual acuity and visual lema seem normal grossly to confrontation. There are no deficits to sensation of the face bilaterally. Corneal reflexes are positive bilaterally. Facial strength and symmetry is normal bilaterally. Hearing seems intact grossly to voice and finger rub. Palate moves well without asymmetry. There is normal sternocleidomastoid and trapezius strength bilaterally. Tongue is midline with good strength bilaterally. Neck is with full range of motion without discomfort. There are no cervical bruits. There are no cranial or ocular bruits. Heart is without murmur. Cervical, thoracic, and lumbar spine are nontender to palpation. Gait is narrow-based and stable. Stance eyes open and feet together is normal With outstretched arms there is no drift. There are no resting, postural, or action tremors. There is no ataxia with [id number] testing. There is good facility in the hands. There are no abnormal involuntary movements noted. Motor strength is 5/5 diffusely in the arms bilaterally including deltoids, biceps, brachioradialis, wrist flexors and extensors, pressing machine operator, and intrinsic hand muscles. Motor strength is 5/5 diffusely in the legs bilaterally including hip flexors, quadriceps, hamstring, gastrocnemius, tibialis anterior, tibialis posterior, and peroneii muscles bilaterally. Toe extensors are normal and there is good bulk in the extensor digitorum brevis muscle bilaterally. The limbs have good tone without rigidity or spasticity, and there is no atrophy noted. Muscle bulk is normal, there is no tenderness, no myotonia noted to percussion, and no fasciculations seen. Sensory examination is intact to pin and touch throughout all four limbs. Reflexes are 2/4 in the biceps, triceps, brachioradialis, quadriceps, and Achilles tendons bilaterally. Toes are downgoing with plantar stimulation bilaterally. Peripheral pulses are present and of normal quality distally in all four limbs. There is no peripheral edema noted. Laboratory Results Past 24 Hours: 04/14/17 11:10 Red Blood Count 4.84, Mean Corpuscular Volume 81.0, Mean Corpuscular Hemoglobin 26.2, Mean Corpuscular Hemoglobin Concent 32.4, Mean Platelet Volume 9.9, Neutrophils (%) (Auto) 83.3, Lymphocytes (%) (Auto) 9.3, Monocytes (%) (Auto) 3.7, Eosinophils (%) (Auto) 1.3, Basophils (%) (Auto) 0.1, Neutrophils # (Auto) 5.83, Lymphocytes # (Auto) 0.65, Monocytes # (Auto) 0.26, Eosinophils # (Auto) 0.09, Basophils # (Auto) 0.01 04/14/17 11:10 Test 04/14/17 11:10 White Blood Count 7.00 K/uL (4.8-10.8) Red Blood Count 4.84 M/uL (4.2-5.4) Hemoglobin 12.7 g/dL (12.0-16.0) Hematocrit 39.2 % (37-47) Mean Corpuscular Volume 81.0 fL (80-100) Mean Corpuscular Hemoglobin 26.2 pg (25-34) Mean Corpuscular Hemoglobin Concent 32.4 g/dl (32-36) Platelet Count 419 K/uL (130-400) Mean Platelet Volume 9.9 fL (7.4-10.4) Neutrophils (%) (Auto) 83.3 % Lymphocytes (%) (Auto) 9.3 % Monocytes (%) (Auto) 3.7 % Eosinophils (%) (Auto) 1.3 % Basophils (%) (Auto) 0.1 % Neutrophils # (Auto) 5.83 K/uL (1.4-6.5) Lymphocytes # (Auto) 0.65 K/uL (1.2-3.4) Monocytes # (Auto) 0.26 K/uL (0.11-0.59) Eosinophils # (Auto) 0.09 K/uL (0-0.5) Basophils # (Auto) 0.01 K/uL (0-0.2) RDW Standard Deviation 43.3 fL (36.4-46.3) RDW Coefficient of Variation 14.7 % (11.5-14.5) Immature Granulocyte % (Auto) 2.3 % Immature Granulocyte # (Auto) 0.16 K/uL (0.00-0.02) Prothrombin Time 10.7 SECONDS (9.0-12.0) Prothromb Time International Ratio 1.0 (0.9-1.1) Anion Gap 6.0 mmol/L (3-11) Est Creatinine Clear Calc Drug Dose 104.9 ml/min Estimated GFR () 92.1 Estimated GFR (Non- 79.5 BUN/Creatinine Ratio 20.5 (10-20) Calcium Level 9.1 mg/dl (8.5-10.1) Chemistry Specimen Hemolysis Impression 1. Acute intractable migrainous headache, over the last several days, markedly improved with medications today The etiology of this headache is either due to hypertension versus steroid effect. I am more inclined to believe that it is linked to the hypertension which was likely triggered by steroids. She doesn't have a history of headaches /migraines or hypertension in the past. However, she has received steroids multiple times in the past and she has not had reactions. Patient has no focal neurologic signs, meningeal signs, or encephalopathy. She has no signs of infection. I do not believe the headache has anything to do with an MS flareup or new MS disease. 2. Multiple sclerosis, stable on Gilenya 3. Recent onset back spasms. Again, I don't believe these back spasms represent new MS disease but may be more related to the mechanical issues with her exercise program and more likely the new chiropractic treatment. Steroids resolved these back spasms. 4. Intermittent hypertension, likely secondary to steroid use. However, pain can increase blood pressure, as well as sumatriptan Plan 1. Check vitamin D level 2. I see no need to wait to obtain MRIs of the brain, cervical spine, and thoracic spine, as desired by her neurologist - these can be done as an outpatient. All of these should be done with and without contrast. If these are done as an inpatient, we can give her medication such as diazepam to calm her down for the study and if she gets a headache during the MRI we can treat her with Toradol or other medication. 3. I see no indication for lumbar puncture. 4. Control blood pressure as you're doing. 5. Taper off steroids as soon as possible. 6. If back spasms recur, use antispasmodics instead of steroids 7. Treat her headache as needed with medication as you're doing. As an outpatient she could use Fioricet or tramadol as well as muscle relaxers and sumatriptan 8. I have no further neurologic testing or treatment recommendations to make otherwise at this time The patient should follow-up as an outpatient with Dr. Funes. I spoke with Dr. Espinosa and Niki Lino PA-C regarding this case and treatment options.
[2017-04-15] MEDS ORDERED: DIAZEPAM 5MG TAB PO SCH (11:00)
--- NOTE | 2017-04-15 13:49 | Discharge Instructions ---
Discharge Instructions Date of Service Apr 15, 2017. Admission Reason for Admission: Migraine Discharge Discharge Diagnosis / Problem: Intractable Migraine Discharge Goals Goal(s): Decrease discomfort, Improve function, Increase independence, Improve disease control Activity Recommendations Activity Limitations: resume your previous activity Lifting Limitations: no more than 25 pounds, gradually increase as tolerated Exercise/Sports Limitations: rest today, gradually increase as tolerated May Resume Sexual Activity: when tolerated Shower/Bathe: no limitations Driving or Machine Use: resume 1 day after discharge . Instructions / Follow-Up Instructions / Follow-Up You were admitted to [facility] with intractable migraine and diagnosed with migraine. This was likely induced from steriods which were being used to treat your back spasm. You were treated with pain control, supportive care and your pain improved. You were noted to have elevated BP while admitted and this was treated on an as needed basis with hydralazine. Blood pressure increase was also likely due to steriods. Imaging studies which were completed include MRI of the brain, cervical spin and thoracic spine: - Results should be reviewed by your neurologist, Dr. Funes at your follow up appointment within 1 week. Medications: Steroids will be weaned so that you have less chance of experiencing rebound headache. Please take this as directed. On 04/15 (tonight): Take one tablet before bed. On 04/16: Take 1 tablet 3x daily. On 04/17 and 04/18 take 1 tab 2x daily. On 04/19 and 04/20 take 1 tablet daily You may take Fioricet as often as every 4 hours as needed for migraine. Follow up: Follow up with your Primary Care Provider within 1 week. Follow up with neurology within 1 week. Current Hospital Diet Patient's current hospital diet: Regular Diet Discharge Diet Recommended Diet: Regular Diet Pending Studies Studies pending at discharge: no Medical Emergencies . Who to Call and When: Medical Emergencies: If at any time you feel your situation is an emergency, please call 911 immediately. . Non-Emergent Contact Non-Emergency issues call your: Primary Care Provider, [employer] Call Non-Emergent contact if: you have a fever, your pain is not controlled, your pain is worsening, your pain is unusual for you, your pain is concerning you, you have any medication questions . Past History Medical & Surgical History: (1) Migraine (2) Multiple sclerosis (3) Upper back pain . "Provider Documentation" section prepared by Niki Lino. . VTE Core Measure Inpt VTE Proph given/why not?: Enoxaparin (Lovenox)SQ
[2017-04-15] MEDS ORDERED: MDR4 PO (14:01)
--- NOTE | 2017-04-15 15:29 | Discharge Summary ---
Discharge Summary Date of Service Apr 15, 2017. (Elise Lino PA-C) Discharge Summary Admission Date: Apr 14, 2017 at 15:47 Discharge Date: Apr 15, 2017 Discharge Disposition: Home Principal Diagnosis: Migraine Problems/Secondary Diagnoses: MS, migraine, back spasm, Crohns disease, and anxiety Procedures: THORACIC SPINE COMBO CLINICAL HISTORY: Multiple sclerosis, evaluate cause of headache. COMPARISON STUDY: Thoracic spine radiographs February 22, 2015. TECHNIQUE: Utilizing 1.5 Mame magnet, multiplanar, multiecho imaging of the thoracic spine was performed pre and postcontrast administration. Injection of 11.5 cc of Gadavist IV was uneventful. FINDINGS: Alignment of the thoracic spine is anatomic. Vertebral body heights are maintained. There is no suspicious marrow replacement. A few small T1 and T2 hyperintense lesion suggest hemangiomas. There is no intracanalicular mass, fluid collection or abnormal enhancement. A 6 mm focus of increased T2 signal within the cord at the T1 level is similar to exam of June 25, 2016. No additional areas of thoracic cord signal abnormality are present. Paravertebral soft tissues are unremarkable. IMPRESSION: 1. No change in a 6 mm T2 hyperintense focus within the thoracic cord at the T1 level since MRI of June 25, 2016 consistent with previous demyelination. No additional thoracic cord plaques. 2. No evidence for active demyelination by MRI. 3. Patent central canal and neural foramen. Electronically signed by: Kishor Bell M.D. 04/15/2017 4:07 PM Dictated Date/Time: 04/15/2017 3:55 PM The status of this report is Signed. MRI OF THE CERVICAL SPINE WITH AND WITHOUT CONTRAST CLINICAL HISTORY: Multiple sclerosis, evaluate cause of headache. COMPARISON: MRI of the cervical spine June 25, 2016. TECHNIQUE: Utilizing a 1.5 Mame magnet and dedicated coil, multiplanar, multiecho imaging of the cervical spine was performed before and after intravenous administration of 11.5 of Gadavist. FINDINGS: Alignment of the cervical spine is anatomic. Vertebral body heights are maintained. There is no marrow replacement or marrow edema. There is no intracanalicular mass or fluid collection. Foci of increased T2 signal within the central aspect of the cord at the C2 level and right aspect of the cord at the T1 level are unchanged since MRI of June 25, 2016. Central canal and neural foramen are patent. Mild degenerative changes are noted with no significant central canal and neural foraminal stenosis. IMPRESSION: No significant change since MRI of June 25, 2016. No change in the foci of demyelination at the C2 and T1 levels. No evidence of active demyelination. No new plaques identified. Electronically signed by: Kishor Bell M.D. 04/15/2017 4:25 PM Dictated Date/Time: 04/15/2017 4:07 PM The status of this report is Signed. Brain MRI WITH AND WITHOUT CONTRAST HISTORY: multiple sclerosis, evaluate cause of headache TECHNIQUE: Multiplanar multisequence MRI of the brain was performed both before and after the intravenous administration of contrast. COMPARISON STUDY: Head CTA 04/14/2017. FINDINGS: No areas of restricted diffusion to suggest acute infarction. The midline structures are intact. The ventricles are normal in size. Major vascular flow-voids at the skull base are well-maintained. Paranasal sinuses and mastoid air cells are clear. There is no mass or midline shift. No significant change in the scattered foci of T2 hyperintensity seen within the periventricular and subcortical white matter of the supratentorial brain. There is also suggestion of faint T2 hyperintense foci within the left graciela and left middle cerebellar peduncle. Interval development of T2 hyperintense signal abnormality within the subarachnoid space at the right parietal and occipital lobes. There is also faint leptomeningeal enhancement at these locations. This is best seen on the coronal FLAIR sequences. IMPRESSION: 1. Signal abnormality within the subarachnoid space at the right parietal and right occipital lobes. This can be seen in the setting of trace subarachnoid hemorrhage. However, this area also demonstrates faint leptomeningeal enhancement. Therefore, an infectious process such as meningitis or Lyme disease cannot be excluded. Posterior reversible encephalopathy syndrome could also have a similar appearance in the appropriate clinical setting. Lumbar puncture for further evaluation if clinically warranted. 2. Otherwise, no significant change in the scattered white matter plaques within the brain consistent with the patient's history of multiple sclerosis. Electronically signed by: Goldy Conn M.D. 04/15/2017 4:17 PM Dictated Date/Time: 04/15/2017 3:55 PM The status of this report is Signed. ANGIOGRAPHY HEAD COMBO CLINICAL HISTORY: 37 years-old Female with acute migraine. COMPARISON STUDY: CT head 04/12/2017. TECHNIQUE: Unenhanced axial CT scan of the brain is performed. Subsequently, following the IV administration of 93 mL of Optiray 320, CT angiogram of the brain was performed from the skull base to the vertex. Images are reviewed in the axial, sagittal, and coronal planes. 3-D MIPS images are created and assessed. IV contrast was administered without complication. A dose lowering technique was utilized adhering to the principles of ALARA. CT DOSE: 693.78 mGy.cm FINDINGS: Brain parenchyma: The brain parenchyma is normal in appearance. There is no hemorrhage, mass effect, or evidence of acute territorial ischemia by CT criteria. There is no evidence of enhancing mass lesion on the angiogram phase images. No extra-axial fluid collection is seen. Pierce-white matter differentiation is preserved. Ventricles, sulci, and cisterns: Normal in configuration. CT ANGIOGRAM OF THE BRAIN: The internal carotid arteries are widely patent, as are the anterior and middle cerebral arteries. The vertebrobasilar system and posterior cerebral arteries are widely patent. There is no aneurysm, high-grade stenosis, or focal vessel cutoff identified throughout the intracranial circulation. Dural sinuses: Clear as visualized. Orbits: The bony orbits are intact. The orbital contents are normal as visualized. Sinuses and mastoids: The visualized paranasal sinuses are clear with the exception of minimal partially imaged polypoid mucosal thickening of the inferior left maxillary sinus. The mastoid air cells are well pneumatized. Calvarium: Unremarkable. IMPRESSION: 1. No acute intracranial abnormality. 2. Unremarkable CTA of the head without aneurysm, dissection, high-grade stenosis or proximal branch occlusion. The above report was generated using voice recognition software. It may contain grammatical, syntax or spelling errors. Electronically signed by: Ambrosio Pacheco M.D. 04/14/2017 2:23 PM Dictated Date/Time: 04/14/2017 2:14 PM The status of this report is Signed. Consultations: Neurology (Elise Lino PA-C) Medication Reconciliation New Medications: Methylprednisolone (Methylprednisolone) 4 Mg Tab 4 MG PO UD for 6 Days, #10 TAB 04/15: Take one tablet before bed. 04/16: Take 1 tablet 3x daily. 04/17- take 1 tab 2x daily. 04/19- take 1 tablet daily Continued Medications: Baclofen (Lioresal) 10 Mg Tab 10 MG PO Q6H PRN for Muscle Spasms Cholecalciferol (D 5000) 5,000 Unit Tab 5000 UNITS PO QAM Clonazepam (Klonopin) 1 Mg Tab 1 MG PO BID Ferrous Sulfate (Iron) 325 Mg Tab 325 MG PO DAILY Fingolimod Hcl (Gilenya) 0.5 Mg Cap 0.5 MG PO QAM Fish Oil ([place]-3) 1 Ea Cap 1 CAP PO QAM Levonorgestrel-Eth Estradiol ( (Levonest) 1 Tab Tab 1 TAB PO DAILY Mesalamine (Lialda) 1.2 Gm Tab 2.4 GM PO BID Sertraline (Zoloft) 50 Mg Tab 25 MG PO DAILY Discharge Exam Subjective Pt evaluation today including: conversation w/ patient, conversation w/ family , physical exam, chart review, lab review, review of studies Pain: temporal headache PO Intake: Good Voiding: no voiding problems The patient was seen and examined this morning. She is with her . She reports her headache today is much better than it was yesterday, rated as a 2/ 10. She denies photophobia or phonophobia currently. Pt admits that she gets anxious easily, and that this has exacerbated her blood pressure in the past, however she normally runs around 100/80. Neurology, Dr. Bates, is present at bedside as well.I will order MRI of the brain , c and t spine today in hopes that this can be accomplished in house vs as an outpatient. No need for LP as there is no sign of infectious process. Constitutional: No fever, No chills, No sweats Eyes: No worsening of vision, No redness, No diplopia ENT: No unusual epistaxis, No nasal symptoms, No trouble swallowing Respiratory: No cough, No shortness of breath, No dyspnea at rest Cardiovascular: No chest pain, No palpitations Abdomen: No pain, No nausea, No vomiting, No diarrhea, No constipation Musculoskeletal: No joint pain, No muscle pain, No swelling Neurologic: No memory loss, No weakness, No numbness/tingling, No balance problems Psychiatric: + anxiety, No depression symptoms Endo: No fatigue Skin: No rash, No itch Objective Vital Signs Date Time Temp Pulse Resp B/P (MAP) Pulse Ox O2 Delivery O2 Flow Rate FiO2 04/15/17 07:12 37.0 52 20 155/90 (111) 97 Room Air 04/15/17 05:37 53 176/111 (132) 04/15/17 04:45 66 18 205/120 (148) 186/110 (135) 04/15/17 00:00 Room Air 04/14/17 23:30 37.0 49 16 151/87 (108) 96 Room Air 04/14/17 21:13 56 138/83 (101) 04/14/17 18:23 52 173/101 (125) 04/14/17 17:30 48 181/105 (130) 04/14/17 16:30 36.9 48 18 186/112 (136) 95 Room Air 04/14/17 16:19 95 Room Air 04/14/17 15:02 50 18 160/83 95 Room Air 04/14/17 13:42 45 20 147/85 95 Room Air 04/14/17 12:32 50 18 164/78 98 Room Air 04/14/17 10:28 36.7 58 18 170/90 99 Room Air Physical Exam General Appearance: WD/WN, no apparent distress, + obese Eyes: PERRL, EOMI ENT: hearing grossly normal, pharynx normal Neck: supple, no JVD Respiratory/Chest: lungs clear, normal breath sounds, no respiratory distress, no accessory muscle use Cardiovascular: regular rate, rhythm (few extra beats auscultated), no murmur Abdomen: normal bowel sounds, non tender, soft Extremities: non-tender, no pedal edema, no calf tenderness Neurologic/Psychiatric: alert, normal mood/affect, oriented x 3 Skin: normal color, warm/dry (Elise Lino PA-C) Hospital Course H&P per Waqar Lim MD. HISTORY OF PRESENT ILLNESS: The patient is a very pleasant 37-year-old female with about 7-year history of MS, who notes that about 2 weeks ago she was starting to have a lot of back spasms. Her neurologist saw her on 04/03/2017 and recommended getting up-to-date MRIs of cervical and thoracic spine, concerned that the spasms may be related to spinal cord flareup of MS. She then was started on oral steroids that were not helping much and then she was given IV steroids, she notes which she remembers being a gram of Solu-Medrol daily for 3 days. She notes then that at the end of this, she started with really severe headache. The headache is bitemporal and frontal. She has photophobia and phonophobia. Earlier she had some nausea, although fortunately none now. She has not had vomiting. She has not been able to do anything to get the headache to go away. She does not, however, have ongoing back spasms. She does not have any blurred vision, double vision, eye tracking problems. She does not have any numbness or weakness. She has no symptoms that remind her of her MS. She has never had a headache like this with her MS flares. She notes she maybe had a couple of migraines in her life but they are too far and few between to really remember what they are like. PHYSICAL EXAMINATION: VITAL SIGNS: Her initial vitals showed a temp 36.7, pulse 58, respiratory rate 18, blood pressure 170/90, 99% on room air. GENERAL: She is awake, alert, oriented x3, pleasant but lying very still with her eyes nearly shut and appearing a little bit uncomfortable, quiet speaking and slow movement. HEENT: Normocephalic, atraumatic. Mucous membranes are moist. CARDIOVASCULAR: Regular without rubs, murmurs, or gallops. LUNGS: Clear to auscultation bilaterally. No rales, rhonchi, or wheezes with good effort. ABDOMEN: Soft, nondistended, nontender. No masses or organomegaly. EXTREMITIES: Without cyanosis, clubbing or edema. No calf tenderness. SKIN: Shows no rashes, no pallor or icterus. NEUROLOGIC: Shows cranial nerves II-XII to be grossly intact. Gross motor is equal and intact bilateral upper and lower extremities and sensory is intact and equal to confrontational light touch diffusely. MUSCULOSKELETAL: Yields no gross lesions. MENTAL STATUS: Shows good recent and remote recall. Normal mood and affect. Good judgment and insight. Hospital Course: This is a 37 yo F with PMHx of MS, migraine, back spasm, Crohns disease, and anxiety Intractable headache / migraine - Probably provoked by the high dosing of Solu-Medrol which was given last , and Sat for back spasms associated with MS which had been ongoing x 1 month. Pt has not had multiple sclerosis symptoms of headache like this before. - Neurology had requested outpatient MRI of the brain, C-spine, T-spine so will order these for in house prior to discharge- Pt was premedicated with Valium 5 mg PO 30 min prior to MRI. - Results were without acute signs of hemorrhage, no acute findings. Result specifics per [employer]. - Continue Sumatriptan 6 mg subQ, fioricet, Tylenol and Toradol p.r.n. mild or moderate pain, morphine p.r.n. severe pain, have p.r.n. Zofran for nausea - s/p 2 L fluids Mild prerenal azotemia - likely from poor p.o. intake from the migraine - s/p 2 U NSS - Following PRP Hypokalemia - Repleted - stable today Elevated blood pressure without a history of hypertension - likely related to pain and anxiety - Hydralazine was administered overnight, will keep this on board PRN. She does not need BP medications upon discharge. Multiple sclerosis. - Continue her home meds- migraine improved to a 2/10 in severity prior to disharge. DVT ppx: Lovenox CODE STATUS: FULL CODE Disposition: From home, discharge when medically stable hopefully today after MRIs. Total Time Spent: Greater than 30 minutes This includes examination of the patient, discharge planning, medication reconciliation, and communication with other providers. (Elise Lino, ADRIANO) I agree with PA assessment and plan and have seen and examined pt myself Resting comfortably in bed Still hypertensive Labs reviewed Likely migrainous attack Reviewed MRI head.cervical spine OK for NE home Appreciate neurology and radiology recs (Maximiliano Espinosa D.O.) Discharge Instructions Please refer to the electronic Patient Visit Report (Discharge Instructions) for additional information. (Elise Lino PA-C) Follow-Up Follow up with your Primary Care Provider within 1 week. Follow up with neurology within 1 week. (Elise Lino PA-C) Additional Copies To Les Funes M.D.
[2017-04-15] MEDS ORDERED: FRCT/ PO (15:42)
[2017-04-15] MEDS ORDERED: KETO10TA PO (15:42)
--- NOTE | 2017-04-15 16:08 | DIAGNOSTIC IMAGING REPORT ---
THORACIC SPINE COMBO CLINICAL HISTORY: Multiple sclerosis, evaluate cause of headache. COMPARISON STUDY: Thoracic spine radiographs February 22, 2015. TECHNIQUE: Utilizing 1.5 Mame magnet, multiplanar, multiecho imaging of the thoracic spine was performed pre and postcontrast administration. Injection of 11.5 cc of Gadavist IV was uneventful. FINDINGS: Alignment of the thoracic spine is anatomic. Vertebral body heights are maintained. There is no suspicious marrow replacement. A few small T1 and T2 hyperintense lesion suggest hemangiomas. There is no intracanalicular mass, fluid collection or abnormal enhancement. A 6 mm focus of increased T2 signal within the cord at the T1 level is similar to exam of June 25, 2016. No additional areas of thoracic cord signal abnormality are present. Paravertebral soft tissues are unremarkable. IMPRESSION: 1. No change in a 6 mm T2 hyperintense focus within the thoracic cord at the T1 level since MRI of June 25, 2016 consistent with previous demyelination. No additional thoracic cord plaques. 2. No evidence for active demyelination by MRI. 3. Patent central canal and neural foramen. Electronically signed by: Kishor Bell M.D. 04/15/2017 4:07 PM Dictated Date/Time: 04/15/2017 3:55 PM
--- NOTE | 2017-04-15 16:08 | DIAGNOSTIC IMAGING REPORT ---
Brain MRI WITH AND WITHOUT CONTRAST HISTORY: multiple sclerosis, evaluate cause of headache TECHNIQUE: Multiplanar multisequence MRI of the brain was performed both before and after the intravenous administration of contrast. COMPARISON STUDY: Head CTA 04/14/2017. FINDINGS: No areas of restricted diffusion to suggest acute infarction. The midline structures are intact. The ventricles are normal in size. Major vascular flow-voids at the skull base are well-maintained. Paranasal sinuses and mastoid air cells are clear. There is no mass or midline shift. No significant change in the scattered foci of T2 hyperintensity seen within the periventricular and subcortical white matter of the supratentorial brain. There is also suggestion of faint T2 hyperintense foci within the left graciela and left middle cerebellar peduncle. Interval development of T2 hyperintense signal abnormality within the subarachnoid space at the right parietal and occipital lobes. There is also faint leptomeningeal enhancement at these locations. This is best seen on the coronal FLAIR sequences. IMPRESSION: 1. Signal abnormality within the subarachnoid space at the right parietal and right occipital lobes. This can be seen in the setting of trace subarachnoid hemorrhage. However, this area also demonstrates faint leptomeningeal enhancement. Therefore, an infectious process such as meningitis or Lyme disease cannot be excluded. Posterior reversible encephalopathy syndrome could also have a similar appearance in the appropriate clinical setting. Lumbar puncture for further evaluation if clinically warranted. 2. Otherwise, no significant change in the scattered white matter plaques within the brain consistent with the patient's history of multiple sclerosis. Electronically signed by: Goldy Conn M.D. 04/15/2017 4:17 PM Dictated Date/Time: 04/15/2017 3:55 PM
--- NOTE | 2017-04-15 16:27 | DIAGNOSTIC IMAGING REPORT ---
MRI OF THE CERVICAL SPINE WITH AND WITHOUT CONTRAST CLINICAL HISTORY: Multiple sclerosis, evaluate cause of headache. COMPARISON: MRI of the cervical spine June 25, 2016. TECHNIQUE: Utilizing a 1.5 Mame magnet and dedicated coil, multiplanar, multiecho imaging of the cervical spine was performed before and after intravenous administration of 11.5 of Gadavist. FINDINGS: Alignment of the cervical spine is anatomic. Vertebral body heights are maintained. There is no marrow replacement or marrow edema. There is no intracanalicular mass or fluid collection. Foci of increased T2 signal within the central aspect of the cord at the C2 level and right aspect of the cord at the T1 level are unchanged since MRI of June 25, 2016. Central canal and neural foramen are patent. Mild degenerative changes are noted with no significant central canal and neural foraminal stenosis. IMPRESSION: No significant change since MRI of June 25, 2016. No change in the foci of demyelination at the C2 and T1 levels. No evidence of active demyelination. No new plaques identified. Electronically signed by: Kishor Bell M.D. 04/15/2017 4:25 PM Dictated Date/Time: 04/15/2017 4:07 PM
[2017-04-16] MEDS ORDERED: METHYLPREDNISOLONE 4 MG TAB PO SCH (07:00)
[2017-04-17] MEDS ORDERED: METHYLPREDNISOLONE 4 MG TAB PO SCH (07:00)
== END 2017-04-15 18:24 | disposition home or self-care (01) ==
LOC: C.EDB 10:24 → C.MS2W 15:47 → ENRESERV 15:53
PROVIDERS: ADMIT Family Medicine; ATTEND Family Medicine
DX: G43.909 Migraine, unspecified, not intractable, without status migrainosus (principal); R79.89 Other specified abnormal findings of blood chemistry; E87.6 Hypokalemia; R03.0 Elevated blood-pressure reading, without diagnosis of hypertension; G35 Multiple sclerosis; K21.9 Gastro-esophageal reflux disease without esophagitis; D64.9 Anemia, unspecified; E55.9 Vitamin D deficiency, unspecified; Z82.49 Family history of ischemic heart disease and other diseases of the circulatory system; Z87.891 Personal history of nicotine dependence; Z83.3 Family history of diabetes mellitus

== ENCOUNTER → 2017-05-15 | Outpatient (CLI) | payer BC ==
[~2017-05-15] MED LIST changes: +MDR4 PO
--- NOTE | 2017-05-15 09:06 | DIAGNOSTIC IMAGING REPORT ---
PA CHEST WITH BILATERAL RIB SERIES CLINICAL HISTORY: Back pain. Pleurodynia. FINDINGS: A PA chest radiograph with 8 additional views from a bilateral rib series is compared to study dated 04/12/2017. The cardiomediastinal silhouette is unremarkable. The lungs and pleural spaces are clear. No pneumothorax is seen. There is no radiographic evidence of rib fracture on the bilateral rib series. The remainder of the bony thorax is grossly intact. IMPRESSION: 1. No active disease in the chest. 2. There is no radiographic evidence of rib fracture on the bilateral rib series. Electronically signed by: Octavio Collazo M.D. 05/15/2017 9:04 AM Dictated Date/Time: 05/15/2017 9:03 AM
--- NOTE | 2017-05-15 09:10 | DIAGNOSTIC IMAGING REPORT ---
THORACIC SPINE 3 VIEWS ROUTINE CLINICAL HISTORY: Back pain, PLEURODYNIA COMPARISON STUDY: 02/22/2015 FINDINGS: The paraspinal line is not displaced. There are no acute fractures. There are persistent mild degenerative visualized within the lower thoracic spine on the lateral view, likely the T11-12 level. IMPRESSION: Mild degenerative change. No fractures or destructive lesions are visualized on conventional radiographic imaging. Electronically signed by: Scott Dick M.D. 05/15/2017 9:09 AM Dictated Date/Time: 05/15/2017 9:02 AM
--- NOTE | 2017-05-15 13:03 | DIAGNOSTIC IMAGING REPORT ---
BONE SCAN WHOLE BODY CLINICAL HISTORY: 37 years-old Female presenting with CROHNS DISEASE. TECHNIQUE: Planar anterior and posterior whole body imaging and SPECT imaging were performed 3 hours following the intravenous administration of radiotracer. Radiotracer: 26 mCi Tc-99m MDP. COMPARISON: Correlation made to plain radiographs of the ribs from 05/15/2017 and MR of the C and T-spine from 04/15/2017. FINDINGS: Minimal focal increased activity at one of the left sternal articulations and few of the costochondral articulations, likely degenerative. No focal activity within the ribs to suggest a lesion or fracture. No increased activity within the sacroiliac joints or spine. No convincing evidence of abnormal radiotracer uptake. Physiologic distribution within the bone marrow with normal excretion into the urinary bladder. IMPRESSION: 1. No significant abnormal radiotracer uptake. Electronically signed by: Dany Pedroza M.D. 05/15/2017 1:02 PM Dictated Date/Time: 05/15/2017 12:56 PM
== END | disposition home or self-care (01) ==
LOC: C.NUCL 08:05
PROVIDERS: ATTEND Nurse Practitioner Family
DX: M54.9 Dorsalgia, unspecified (principal); R07.81 Pleurodynia; K50.90 Crohn's disease, unspecified, without complications

== ENCOUNTER → 2017-05-19 | Outpatient (CLI) | payer BC ==
[~2017-05-19] MED LIST changes: +GADAVIST IV PRN
--- NOTE | 2017-05-19 20:40 | DIAGNOSTIC IMAGING REPORT ---
BRAIN COMBO FOR MS CLINICAL HISTORY: 37 years-old Female presenting with G35 Multiple [id number] PRES (posterior reversible encephal. TECHNIQUE: Multisequence, multiplanar MR imaging of the brain was performed before and after the administration of intravenous contrast. IV contrast: None. COMPARISON: None. FINDINGS: Ventricles and sulci normal in size. Multiple (at least 10) foci of subcortical white matter T2/FLAIR hyperintensity, primarily distributed in the frontotemporal white matter. These were all present on the prior exam and do not enhance. No mass effect or midline shift. No restricted diffusion to suggest acute ischemia. Previous study demonstrated flair hyperintensity in the subarachnoid space along the occipital region is no longer present. No extra-axial fluid collection. T2 skull base flow voids preserved. Bone marrow signal intensity within the calvarium within normal limits. Mucosal thickening in the right maxillary sinus, new from prior. IMPRESSION: 1. No acute intracranial abnormality. 2. Previously noted multifocal abnormal foci of T2/FLAIR hyperintensity in the subcortical white matter are unchanged in size and number. These do not enhance and are nonspecific. These could be seen in the setting of demyelinating disease among other etiologies. 3. Interval resolution of previously noted FLAIR hyperintensity in the subarachnoid space. No findings on the current exam to suggest posterior reversible encephalopathy syndrome. 4. Mucosal thickening in the right maxillary sinus, new from prior. Electronically signed by: Dany Pedroza M.D. 05/19/2017 8:39 PM Dictated Date/Time: 05/19/2017 8:30 PM
== END | disposition home or self-care (01) ==
LOC: C.MRI 19:35
PROVIDERS: ATTEND Psychiatry & Neurology Neurology
DX: G35 Multiple sclerosis (principal); I67.83 Posterior reversible encephalopathy syndrome

== ENCOUNTER 2017-07-15 19:01 | Emergency (ER) | payer BC ==
[~2017-07-15 19:01] MED LIST changes: -GADAVIST IV PRN
[2017-07-15 19:05] VITALS: TEMP 36.6; Ht 165.1 cm
[2017-07-15] MEDS ORDERED: ACETAMINOPHEN 325 MG TAB PO STA (19:12)
[2017-07-15] MEDS ORDERED: CITA40TA4 PO (19:40)
[2017-07-15] MEDS ORDERED: KLN1X PO (19:40)
[2017-07-15] MEDS ORDERED: PROB1TAB16 PO (19:42)
[2017-07-15] MEDS ORDERED: CHOLCAP5 PO (19:42)
--- NOTE | 2017-07-15 19:47 | DIAGNOSTIC IMAGING REPORT ---
RIGHT FOOT 3 VIEWS CLINICAL HISTORY: Fall with right foot injury. FINDINGS: 3 views of the right foot are obtained. No prior studies are available for comparison at the time of dictation. The skeletal structures are well mineralized. No fracture is seen. The joint spaces of the foot are well-maintained. There is a large plantar calcaneal enthesophyte. The overlying soft tissues are within normal limits. IMPRESSION: No acute bony abnormality is seen in the right foot. Electronically signed by: Octavio Collazo M.D. 07/15/2017 7:46 PM Dictated Date/Time: 07/15/2017 7:45 PM
--- NOTE | 2017-07-15 19:48 | DIAGNOSTIC IMAGING REPORT ---
RIGHT ANKLE 3 VIEWS CLINICAL HISTORY: Fall with right ankle injury. FINDINGS: 3 views of the right ankle are obtained. No prior studies are available for comparison at the time of dictation. The skeletal structures are well mineralized. No fracture is seen. The ankle mortise is intact. There is a large plantar calcaneal enthesophyte. Soft tissue swelling is present around the ankle. No joint effusion is seen. IMPRESSION: Soft tissue swelling with no radiographic evidence of right ankle fracture. Electronically signed by: Octavio Clolazo M.D. 07/15/2017 7:47 PM Dictated Date/Time: 07/15/2017 7:46 PM
--- NOTE | 2017-07-15 19:54 | EMERGENCY ROOM VISIT NOTE ---
History First contact with patient: 19:07 Chief Complaint: ANKLE PAIN Stated Complaint: RT ANKLE/FOOT PAIN History of Present Illness The patient is a 37 year old female who presents to the Emergency Room via private vehicle with complaints of "right ankle/foot pain". The patient states that just prior to arrival she was decorating her house with Bath lights when she was stepping down off of the porch/back when she missed a few steps and inverted her right ankle. She heard a pop at the right lateral malleolus region. She rates the pain at rest as a 5/10 with movement as a 9/10. She notes no numbness or tingling. She denies chance of . Review of Systems A complete 6-point Review of Systems was discussed with the patient, with pertinent positives and negatives listed in the History of Present Illness. All remaining Review of Systems questions can be considered negative unless otherwise specified. Past Medical/Surgical History Medical Problems: (1) Migraine (2) Multiple sclerosis Family History Diabetes mellitus Heart disease Hypertension Kidney disease Lung disease Social History Smoking Status: Never Smoker Alcohol Use: none Drug Use: none Marital Status: Housing Status: lives with family Occupation Status: employed Current/Historical Medications Scheduled Cholecalciferol (Vitamin D3), 5,000 INTER.UNIT PO DAILY Citalopram (Citalopram Hydrobromide), 40 MG PO DAILY Clonazepam (Clonazepam), 1 MG PO BID Fish Oil ([place]-3), 1 CAP PO QAM Levonorgestrel-Eth Estradiol ( (Levonest), 1 TAB PO DAILY Probiotic Product (Probiotic), 1 TAB PO DAILY Physical Exam Vital Signs Date Time Temp Pulse Resp B/P (MAP) Pulse Ox O2 Delivery O2 Flow Rate FiO2 07/15/17 20:03 53 18 112/67 96 07/15/17 19:05 36.6 96 18 96 Room Air Physical Exam VITAL SIGNS - Vital signs and nursing notes were reviewed. Stable. GENERAL 37-year-old female appearing her stated age who is in no acute distress. Communicates well with provider and answers questions appropriately. SKIN - Without rashes. Skin overlying the right lateral malleolus is unremarkable. EXTREMITIES - No clubbing or peripheral cyanosis. No pretibial edema present. There is no proximal woodruff tenderness of the right. There is right lateral malleolus or/slightly anterior tenderness noted into the foot. There is no toe tenderness. Decreased range of motion secondary to pain. She is neurovascularly intact in this region. +5/5 strength noted in UE/LE bilaterally. Medical Decision & Procedures ER Provider Diagnostic Interpretation: RIGHT ANKLE 3 VIEWS CLINICAL HISTORY: Fall with right ankle injury. FINDINGS: 3 views of the right ankle are obtained. No prior studies are available for comparison at the time of dictation. The skeletal structures are well mineralized. No fracture is seen. The ankle mortise is intact. There is a large plantar calcaneal enthesophyte. Soft tissue swelling is present around the ankle. No joint effusion is seen. IMPRESSION: Soft tissue swelling with no radiographic evidence of right ankle fracture. Electronically signed by: Octavio Collazo M.D. 07/15/2017 7:47 PM Dictated Date/Time: 07/15/2017 7:46 PM RIGHT FOOT 3 VIEWS CLINICAL HISTORY: Fall with right foot injury. FINDINGS: 3 views of the right foot are obtained. No prior studies are available for comparison at the time of dictation. The skeletal structures are well mineralized. No fracture is seen. The joint spaces of the foot are well-maintained. There is a large plantar calcaneal enthesophyte. The overlying soft tissues are within normal limits. IMPRESSION: No acute bony abnormality is seen in the right foot. Electronically signed by: Octavio Collazo M.D. 07/15/2017 7:46 PM Dictated Date/Time: 07/15/2017 7:45 PM Medications Administered Medications (Trade) Dose Ordered Sig/Korina Route Start Time Stop Time Status Last Admin Dose Admin Acetaminophen (Tylenol Tab) 650 mg NOW STAT PO 07/15/17 19:12 07/15/17 19:14 DC 07/15/17 19:21 650 MG Medical Decision Patient was seen and evaluated as above. She presents with right ankle pain. X -rays were obtained. Ice was divided. She was given Tylenol for pain. No fracture noted. I suspect she sprained the ankle. She was educated upon management. She was given a gel ankle splint and crutches. She is to follow- up with her this persists. She was educated upon management, had questions and provided discharge, was educated upon worrisome symptoms in which to return and was discharged home in good condition. In the evaluation and treatment of this patient, the following differential diagnoses were considered: Ankle Fracture, Ankle Sprain, Distal Fibula Fracture , Distal Tibia Fracture, Foot Fracture, Maisonneuve Fracture. Impression Primary Impression: Right ankle pain Departure Information Dispostion Home / Self-Care Condition GOOD Referrals Vanesa Witt (PCP) Gregorio Mcwilliams D.O. Patient Instructions My [facility] Additional Instructions You have been treated in the Emergency Department for a R Ankle injury. For pain control, you can use the following [id number] medicines (if >12 yo): - Regular strength (325mg/tab) Tylenol (acetaminophen) 2 tabs every 4-6 hours as needed. Do not exceed 12 tablets in a 24 hour period. Avoid taking more than 3 grams (3000 mg) of Tylenol per day. This includes any other sources of acetaminophen you may take on a regular basis. - Regular strength (200 mg/tab) Advil (ibuprofen) 1-2 tabs every 4-6 hours as needed. Do not exceed a dose of 3200 mg per day. If this is a recent injury (<24 hrs), ice can be applied to the area of pain for the first 3 days to help decrease pain and inflammation. You have been provided the number for an Orthopaedic Surgeon. You should call this number as soon as possible to establish a follow-up visit from today's Emergency Department visit. Keep the ankle brace/splint in place until cleared by Orthopedics. Use the crutches you have been provided to keep ALL weight off of the ankle until weight bearing is tolerable. Return to the Emergency Department if your current symptoms worsen despite treatment course outlined above, or if you develop any of the following symptoms : intractable pain despite aforementioned treatment course or new onset of numbness or tingling of the foot.
[2017-07-15 20:03] VITALS: BP 112/67; PULSE 53; O2SAT 96
== END 2017-07-15 20:04 | disposition home or self-care (01) ==
LOC: C.EDB 19:02 → C.EDD 20:04
DX: M25.571 Pain in right ankle and joints of right foot (principal); W10.9XXA Fall (on) (from) unspecified stairs and steps, initial encounter; Y92.018 Other place in single-family (private) house as the place of occurrence of the external cause; G43.909 Migraine, unspecified, not intractable, without status migrainosus; G35 Multiple sclerosis; Z83.3 Family history of diabetes mellitus; Z82.49 Family history of ischemic heart disease and other diseases of the circulatory system; Z84.1 Family history of disorders of kidney and ureter; Z83.6 Family history of other diseases of the respiratory system; Z79.899 Other long term (current) drug therapy

== ENCOUNTER → 2017-07-22 | Outpatient (CLI) | payer BC ==
[~2017-07-22] MED LIST changes: -BACL10TA PO; -CHOL1TAB52 PO; +CHOLCAP5 PO; +CITA40TA4 PO; -CLON1TAB3 PO; -FERR1TAB23 PO; -FING1CAP PO; +KLN1X PO; -MDR4 PO; -MESA1.2T PO; +PROB1TAB16 PO; -SERT50TA PO
[2017-07-22 17:24] LABS: BASO % 0.5 %; BASO ABS # 0.04 K/uL (0-0.2); COMPLETE YES; EOS % 2.7 %; IG% 0.3 %; LYMPH % 20.6 %; LYMPH ABS # 1.53 K/uL (1.2-3.4); MEAN CELL VOLUME 84.1 fL (80-100); MEAN CORPUSCULAR HEMOGLOBIN 26.9 pg (25-34); MEAN CORPUSCULAR HGB CONC 31.9 g/dl (32-36); MEAN PLATELET VOLUME 9.8 fL (7.4-10.4); MONO % 7.4 %; NEUT % 68.5 %; PLATELET COUNT 317 K/uL (130-400); RED BLOOD COUNT 4.28 M/uL (4.2-5.4); WHITE BLOOD COUNT 7.43 K/uL (4.8-10.8)
[2017-07-22 17:47] LABS: BLOOD UREA NITROGEN 12 mg/dl (7-18); BUN/CREATININE RATIO 15.4 (10-20); CALCIUM 8.6 mg/dl (8.5-10.1); CARBON DIOXIDE 27 mmol/L (21-32); CHLORIDE 106 mmol/L (98-107); CREATININE 0.77 mg/dl (0.60-1.20); GLUCOSE 100 mg/dl (70-99); POTASSIUM 3.6 mmol/L (3.5-5.1); SODIUM 136 mmol/L (136-145)
[2017-07-22 17:52] LABS: ALB/GLOB RATIO 0.8 (0.9-2); ALKALINE PHOSPHATASE 76 U/L (45-117); ALT/SGPT 19 U/L (12-78); AST/SGOT 11 U/L (15-37)
== END | disposition home or self-care (01) ==
LOC: C.LAB 16:59
PROVIDERS: ATTEND Psychiatry & Neurology Neurology
DX: G35 Multiple sclerosis (principal)

== ENCOUNTER → 2017-09-01 | Outpatient (CLI) | payer OTHER ==
[2017-09-01 09:34] LABS: BASO % 0.5 %; BASO ABS # 0.03 K/uL (0-0.2); EOS % 3.1 %; EOS ABS # 0.19 K/uL (0-0.5); HEMATOCRIT 38.8 % (37-47); HEMOGLOBIN 12.7 g/dL (12.0-16.0); IG# 0.01 K/uL (0.00-0.02); LYMPH % 15.1 %; LYMPH ABS # 0.92 K/uL (1.2-3.4); MEAN CELL VOLUME 83.6 fL (80-100); MEAN CORPUSCULAR HEMOGLOBIN 27.4 pg (25-34); MEAN CORPUSCULAR HGB CONC 32.7 g/dl (32-36); MEAN PLATELET VOLUME 9.9 fL (7.4-10.4); MONO % 8.5 %; MONO ABS # 0.52 K/uL (0.11-0.59); NEUT % 72.6 %; NEUT ABS # 4.42 K/uL (1.4-6.5); PLATELET COUNT 315 K/uL (130-400); RED CELL DISTRIBUTION WIDTH CV 15.4 % (11.5-14.5); RED CELL DISTRIBUTION WIDTH SD 46.8 fL (36.4-46.3); WHITE BLOOD COUNT 6.09 K/uL (4.8-10.8)
== END | disposition home or self-care (01) ==
LOC: C.LAB 07:06
PROVIDERS: ATTEND Internal Medicine Hematology & Oncology
DX: D64.9 Anemia, unspecified (principal)

== ENCOUNTER → 2017-12-25 | Outpatient (CLI) | payer OTHER ==
[2017-12-25 09:36] LABS: BASO % 0.6 %; BASO ABS # 0.05 K/uL (0-0.2); EOS % 3.3 %; EOS ABS # 0.28 K/uL (0-0.5); HEMATOCRIT 38.7 % (37-47); HEMOGLOBIN 12.8 g/dL (12.0-16.0); IG# 0.04 K/uL (0.00-0.02); LYMPH % 15.4 %; LYMPH ABS # 1.32 K/uL (1.2-3.4); MEAN CELL VOLUME 85.6 fL (80-100); MEAN CORPUSCULAR HEMOGLOBIN 28.3 pg (25-34); MEAN CORPUSCULAR HGB CONC 33.1 g/dl (32-36); MEAN PLATELET VOLUME 9.7 fL (7.4-10.4); MONO % 6.5 %; MONO ABS # 0.56 K/uL (0.11-0.59); NEUT % 73.7 %; NEUT ABS # 6.32 K/uL (1.4-6.5); PLATELET COUNT 398 K/uL (130-400); RED CELL DISTRIBUTION WIDTH CV 13.7 % (11.5-14.5); RED CELL DISTRIBUTION WIDTH SD 42.9 fL (36.4-46.3); WHITE BLOOD COUNT 8.57 K/uL (4.8-10.8)
[2017-12-25 09:58] LABS: ALBUMIN 3.4 gm/dl (3.4-5.0); ALT/SGPT 22 U/L (12-78); AST/SGOT 14 U/L (15-37); BLOOD UREA NITROGEN 11 mg/dl (7-18); CALCIUM 9.3 mg/dl (8.5-10.1); CARBON DIOXIDE 29 mmol/L (21-32); CREATININE 0.81 mg/dl (0.60-1.20); GLUCOSE 78 mg/dl (70-99); SODIUM 136 mmol/L (136-145)
[2017-12-25 10:01] LABS: ALKALINE PHOSPHATASE 74 U/L (45-117); TOTAL PROTEIN 7.8 gm/dl (6.4-8.2)
[2017-12-28 13:19] LABS: QUANTIF MITOGEN-NIL 8.14 IU/ML; QUANTIFERON NEGATIVE (NEGATIVE); QUANTIFERON NIL 0.03 IU/ML
== END | disposition home or self-care (01) ==
LOC: C.LAB 07:09
PROVIDERS: ATTEND Psychiatry & Neurology Neurology
DX: G35 Multiple sclerosis (principal)

== ENCOUNTER → 2018-04-06 | Outpatient (CLI) | payer OTHER ==
[~2018-04-06] MED LIST changes: +GADAVIST IV PRN
--- NOTE | 2018-04-06 08:59 | DIAGNOSTIC IMAGING REPORT ---
MRI OF THE CERVICAL SPINE WITH AND WITHOUT CONTRAST CLINICAL HISTORY: Multiple sclerosis. COMPARISON: MRI of the cervical spine April 15, 2017. TECHNIQUE: Utilizing a 1.5 Mame magnet and dedicated coil, multiplanar, multiecho imaging of the cervical spine was performed before and after intravenous administration of 12 of Gadavist. FINDINGS: Alignment of the cervical spine is anatomic. Vertebral body heights are maintained. No suspicious marrow replacement is present. No intracanalicular mass or fluid collection is present. Central canal and neural foramen are patent. Minimal disc bulges at C5-C6 and C6-C7 are unchanged. Small foci of increased T2 signal within the cord at the C2 and T1 levels are unchanged since MRI of April 15, 2017. No new foci of demyelination within the cord are present. There is no cord enhancement. The appearance of the cervical spine is unchanged. IMPRESSION: 1. No change in several foci of demyelination within the cord at the C2 and T1 levels since MRI of April 15, 2017. No new plaques identified. No evidence for active demyelination. 2. No change in mild degenerative disc disease at C5-C6 and C6-C7. Patent central canal and neural foramen. Electronically signed by: Kishor Bell M.D. 04/06/2018 8:52 AM Dictated Date/Time: 04/06/2018 8:41 AM
--- NOTE | 2018-04-06 09:07 | DIAGNOSTIC IMAGING REPORT ---
BRAIN COMBO FOR MS CLINICAL HISTORY: 37 years-old Female presenting with G35 Multiple sclerosis, headache for 2 months, muscle spasms. TECHNIQUE: Multisequence, multiplanar MR imaging of the brain was performed before and after the administration of intravenous contrast. IV contrast: 12 mL of Gadavist. COMPARISON: 05/19/2017. FINDINGS: Localizer images: Unremarkable. Ventricles and sulci normal in size. Multiple T2/FLAIR hyperintense lesions scattered throughout the white matter of the cerebrum. There are at least 9 new lesions that were not present on the prior exam. Several of these new lesions are also T1 hypointense. One of these lesions demonstrates enhancement on postcontrast imaging (series 5 image 12). No restricted diffusion of these lesions. No mass effect or midline shift. No restricted diffusion to suggest acute ischemia. No hemorrhage. No extra-axial fluid collection. T2 skull base flow voids preserved. Bone marrow signal intensity within the calvarium within normal limits. Polypoid mucosal thickening in the left maxillary sinus. IMPRESSION: 1. Interval increase in number of white matter lesion. One of these lesions demonstrates enhancement consistent with active demyelination. Findings compatible with progression of known the demyelinating disease. Electronically signed by: Dany Pedroza M.D. 04/06/2018 9:06 AM Dictated Date/Time: 04/06/2018 8:40 AM
== END | disposition home or self-care (01) ==
LOC: C.MRI 06:34
PROVIDERS: ATTEND Psychiatry & Neurology Neurology
DX: G35 Multiple sclerosis (principal)

== ENCOUNTER 2023-10-02 02:09 | Observation (INO) ==
--- NOTE | 2023-10-02 02:34 | Emergency Department Note ---
History of Present Illness General Chief complaint: Abdominal Pain Stated complaint: ABD/BACK/CHEST PAIN Time Seen by Provider: 10/02/23 02:17 History of Present Illness Maximum Pain Intensity: 10 This 43-year-old female presents ER complaining of severe epigastric pain tonight. Patient had a cheese steak for dinner. No prior abdominal surgeries. Patient denies chest pain, dyspnea, fevers, flulike illness. Home Medications Medication Instructions Recorded Confirmed Type citalopram 40 mg tablet 40 mg PO QAM 12/03/18 10/02/23 History clonazepam 1 mg tablet 1 mg PO BID 12/03/18 10/02/23 History cyanocobalamin (vitamin B-12) 1,000 mcg IM MONTHLY 03/15/19 10/02/23 History 1,000 mcg/mL injection solution ergocalciferol (vitamin D2) 1,250 50,000 unit PO WK 03/15/19 10/02/23 History mcg (50,000 unit) capsule (Vitamin D2) levonorgestrel 21 mcg/24 hours (8 1 device intrauterine CONTINOUS 08/31/19 10/02/23 History yrs) 52 mg intrauterine device (Mirena) cetirizine 10 mg capsule (Zyrtec) 10 mg PO DAILY PRN seasonal 04/02/21 10/02/23 History allergies vedolizumab 300 mg intravenous 300 mg IV Q8WK 09/25/21 10/02/23 History solution (Entyvio) omeprazole 20 mg capsule,delayed 20 mg PO BID 11/17/22 10/02/23 History release ocrelizumab 30 mg/mL intravenous 600 mg (20 mL) IV Q6M #20 mL 12/15/22 10/02/23 Rx solution (Ocrevus) diazepam 5 mg tablet (Valium) 5 mg PO .COMPLEX PRN anxiety #2 03/25/23 10/02/23 Rx tabs modafinil 200 mg tablet (Provigil) 200 mg PO QAM #30 tabs 07/10/23 10/02/23 Rx olmesartan 40 mg tablet 40 mg PO DAILY 10/02/23 10/02/23 History Allergies Allergy/AdvReac Type Severity Reaction Status Date / Time glatiramer (copolymer 1) Allergy Intermediate severe Verified 10/02/23 02:42 [From Copaxone] wound from injection site nickel Allergy Intermediate "ITCHY, Verified 10/02/23 02:42 RED BUMPS" adhesive Allergy Mild RASH Verified 10/02/23 02:42 amoxicillin Allergy Mild Rash Verified 10/02/23 02:42 nitrofurantoin Allergy Mild RASH Verified 10/02/23 02:42 Penicillins Allergy Mild ITCHY, Verified 10/02/23 02:42 NAUSEATED Sulfa (Sulfonamide Allergy Mild RASH Verified 10/02/23 02:42 Antibiotics) teriflunomide [From Aubagio] Allergy Mild headache, Verified 10/02/23 02:42 dizziness, gastro problems fluvoxamine AdvReac Intermediate low heart Verified 10/02/23 02:42 rate Past Med/Surg History Medical History History of COVID-19 04/2022 - severe flu like symptoms. IUD (intrauterine device) in place Mirena 08/11 Claustrophobia only for MRI's Depression with anxiety GERD (gastroesophageal reflux disease) controlled with medication Anemia hx Crohn disease Multiple sclerosis follows with [facility] Pleural effusion (12/02/13) hx of 2013 Migraine hx Hypertension (12/02/13) resolved Pneumonia hx of Bronchitis hx of Surgical History History of bladder surgery (~10/2021) ant repair, had uterine suspension, but had to take down because of pain. History of tooth extraction Status post dilation and curettage History of colposcopy S/P LEEP (loop electrosurgical excision procedure) S/P excisional debridement left hip (resulted from Copaxone injection) History of esophagogastroduodenoscopy (EGD) History of colonoscopy Family History Father Family history of diabetes mellitus Sister Family history of diabetes mellitus Mother Colonic polyp Other No family history of adverse response to anesthesia Denies family history of Ovarian cancer Breast cancer Colorectal cancer Social History Smoking Status: Current every day smoker Tobacco Type: Cigarettes Cigarettes Per Day: 10-15; Second Hand Exposure: No; Do You Dip or Chew Tobacco: No; Hx Alcohol Use: Yes Alcohol type: beer, wine and hard liquor Hx Substance Use: No Preferred Language: French Communication Ability: Effective Item Processor Required: No Beliefs That Will Affect Care: None marital status: Current Living Situation: Spouse Current Living Situation Comment: Lives with and 6 yr old daughter Feels Safe at Home: Yes Assistive Devices: Contacts and Glasses Review of Systems A total of 10 systems reviewed and were otherwise negative Physical Exam Vital Signs Vital Signs - 24 hr 10/02/23 02:13 10/02/23 02:22 10/02/23 02:31 Temperature 37 C Temperature Source Temporal Artery Scan Pulse Rate 81 63 62 Respiratory Rate 18 15 Respiratory Effort / Characteristics Non-Labored Respiratory Depth Normal Blood Pressure 155/120 H Blood Pressure Mean 131 Pulse Oximetry 95 96 Oxygen Delivery Method Room Air Sepsis Recent Fever Within 48 Hours No Sepsis New/Unexplained Change in Mental Status No Sepsis Action Taken by Nursing No Action Required VITALS: Vitals are noted on the nurse's note and reviewed by myself. Vital signs stable. GENERAL: White female who appears in pain, in no acute distress, nondiaphoretic, well-developed well-nourished. SKIN: Capillary reflex less than 2 seconds. HEENT: Normocephalic. PERRLA. EOMI. Nares patent. Mucous membranes moist. Neck is supple without nuchal rigidity. HEART: Regular rate and rhythm LUNGS: Clear to auscultation bilaterally without wheezes, rales or rhonchi. No retractions or accessory muscle use. ABDOMEN: Positive bowel sounds x 4. Normal tympanic percussion. Soft, tender epigastric right upper quadrant, without masses or organomegaly. No guarding or rebound tenderness. no CVA tenderness MUSCULOSKELETAL: No gross musculoskeletal defects. NEURO: Patient was alert and oriented to person place and time. No focal neurological deficits. Course Administered Medications Discontinued Medications Famotidine (Pepcid 20mg Iv Push) 20 mg in 5 mls @ 2.5 mls/min IV NOW STA Stop: 10/02/23 02:29 Last Admin: 10/02/23 02:46 Dose: 2.5 mls/min Documented By: ALYSON Sodium Chloride (Nss) 1,000 mls @ 999 mls/hr IV .Q1H1M ONE Stop: 10/02/23 03:28 Last Infusion: 10/02/23 04:42 Dose: Infused Documented By: Admin: 10/02/23 02:44 Dose: 999 mls/hr Documented By: ALYSON Morphine Sulfate (Morphine Sulfate 4 Mg/Ml 1 Ml Carp\\Vial) 4 mg IV NOW STA Stop: 10/02/23 02:29 Last Admin: 10/02/23 02:45 Dose: 4 mg Documented By: ALYSON Ondansetron HCl (Ondansetron Inj 2 Mg/Ml 2 Ml Vial) 4 mg IV NOW STA Stop: 10/02/23 02:29 Last Admin: 10/02/23 02:45 Dose: 4 mg Documented By: ALYSON Medical Decision Making Medical Records Attestation: I reviewed the patient's medical records. Home Medications Current Medication List: was personally reviewed by me Laboratory Data Attestation: I reviewed the patient's lab results. 10/02/23 02:28 10/02/23 02:28 Lab Results 10/02/23 Range/Units 02:28 WBC 7.04 (4.8-10.8) K/ul RBC 4.37 (4.20-5.40) M/uL Hgb 12.3 (12.0-16.0) g/dl Hct 36.8 L (37.0-47.0) % MCV 84.2 (80.0-100.0) fL MCH 28.1 (25.0-34.0) pg MCHC 33.4 (32.0-36.0) g/dL RDW Std Deviation 42.7 (36.4-46.3) fL RDW Coeff of Rhona 13.9 (11.5-14.5) % Plt Count 306 (130-400) K/uL MPV 10.4 (9.4-12.4) fL Immature Gran % (Auto) 0.4 % Neut % (Auto) 61.4 % Lymph % (Auto) 22.9 % [place] % (Auto) 10.9 % Eos % (Auto) 3.8 % Baso % (Auto) 0.6 % Neut # (Auto) 4.32 (1.40-6.50) K/uL Lymph # (Auto) 1.61 (1.20-3.40) K/uL [place] # (Auto) 0.77 H (0.11-0.59) K/uL Eos # (Auto) 0.27 (0.00-0.50) K/uL Baso # (Auto) 0.04 (0.00-0.20) K/uL Immature Gran # (Auto) 0.03 (0.01-0.20) K/uL Sodium 139 (136-145) mmol/L Potassium 3.5 (3.5-5.1) mmol/L Chloride 106 (98-107) mmol/L Carbon Dioxide 26 (21-32) mmol/L Anion Gap 7 (3-11) BUN 13 (6-23) mg/dl Creatinine 0.84 (0.6-1.2) mg/dl Est Cr Clr Drug Dosing 112.7 ml/min Est GFR ( Amer) 97.3 ml/min Est GFR (Non-Af Amer) 83.9 ml/min BUN/Creatinine Ratio 15.5 (10-20) Glucose 107 H (70-99(Fasting)) mg/dl Calcium 9.0 (8.6-10.3) mg/dl Total Bilirubin 0.3 (0.2-1.0) mg/dl AST 18 (13-39) U/L ALT 21 (7-52) U/L Alkaline Phosphatase 77 (34-104) U/L Troponin I High Sens 3.9 (0-14) pg/ml Total Protein 6.6 (6.0-8.3) gm/dl Albumin 3.9 (3.4-5.0) gm/dl Globulin 2.7 (2.5-4.0) gm/dl Albumin/Globulin Ratio 1.4 (0.9-2) Lipase 29 (11-82) U/L HCG, Qual Negative (Negative) Imaging Data Attestation: I personally reviewed and interpreted this imaging study as follows: Radiologist's Impression: Gallbladder Ultrasound 10/02/23 02:17 Exam(s): US GALLBLADDER EXAM: US Abdomen Limited, Gallbladder CLINICAL HISTORY: Reason for exam: ruq pain. TECHNIQUE: Real-time ultrasound of the right upper quadrant with image documentation. COMPARISON: No relevant prior studies available. FINDINGS: Liver: Increased hepatic echogenicity. Findings can be seen with hepatic steatosis. Gallbladder: Calculus at the gallbladder neck measuring 7 mm. Gallbladder wall thickness measures 5 mm. Common bile duct: The common duct measures 7 mm in diameter. No stones. No dilation. Pancreas: Unremarkable as visualized. IMPRESSION: 1. Findings which can be seen with cholecystitis with gallbladder wall thickening measuring up to 5 mm with calculus of the gallbladder neck. Additionally, the common duct is dilated 7 mm. This may be due to extrinsic compression. There is further concern for cholecystitis, consider HIDA imaging. Electronically signed by: Praful Smith MD 10/02/23 04:42 AM MDM Narrative Prior records/ancillary studies reviewed. Triage Nursing notes reviewed. Additional history obtained from family. The patient's history was concerning for abdominal pain. Differential diagnosis: Etiologies such as appendicitis, diverticulitis, PUD, biliary pathology, UTI, pancreatitis, obstruction, mesenteric ischemia, aortic pathology, infections, inflammatory bowel disease, renal colic, as well as others were entertained. Physical examination findings: As above. ER treatment provided: An order was placed for continuous cardiac monitoring. The monitor shows a rate of 60-100 with a sinus rhythm per my Independent interpretation. Zofran, morphine, Pepcid, IV fluids Mefoxin On reassessment the patient felt better. Diagnostics interpreted by me: ECG: Ordered for upper abdominal pain EKG: Normal sinus, normal intervals, no acute ST-T wave changes. Impression normal sinus rhythm independently interpreted by myself The labs Independently Interpreted by myself revealed no worrisome leukocytosis, negative hCG, normal LFTs Imaging studies: Chest x-ray with no acute consolidation, pneumothorax or free air per my independent interpretation Ultrasound concerning for acute cholecystitis HEART SCORE: Hx: high/mod/low suspicion: 0 ECG: ST depression/nonspecific changes/normal: 0 Age: Greater than 65/45-64/less than 45: 1 Risk factors: (Hypertension, hyperlipidemia, diabetes, coronary disease, tobacco use, cocaine use): 1 Troponin: Greater than 2 times normal limits/1-2 times normal limits/normal: 0 Total: 2 Consultation: A consultation was placed with the surgical provider. The case was discussed and diagnostics were reviewed. The patient was evaluated in the ER for further treatment. Medicine was consulted and the case was discussed. Patient be admitted to the medical service for further evaluation and workup. Exam and history seem consistent with acute cholecystitis. Surgery recommends medical admission as patient admitted multiple medical problems. Medicine and surgery consulted the case was discussed. Patient was admitted to the medical service with surgery consultation. By the evaluation outlined above emergent etiologies such as appendicitis, diverticulitis, PUD, UTI, pancreatitis, obstruction, mesenteric ischemia, aortic pathology, renal colic, as well as others were deemed relatively unlikely. The pt informed about the findings as listed above. All questions were answered and pleased with the treatment. The chart was completed utilizing [employer] Speech voice recognition software. Grammatical errors, random word insertions, pronoun errors, and incomplete sentences are an occassional consequence of this system due to software limitations, ambient noise, and hardware issues. Any formal questions or concerns about the content, text, or information contained within the body of this dictation should be directly addressed to the physician medical assistant internal medicine for clarification. Impression & Plan Acute cholecystitis Discharge Plan Visit Data Chief Complaint: Abdominal Pain Stated Complaint: ABD/BACK/CHEST PAIN ED Provider: Mandy Whitney ED Midlevel Provider: Kristy Doshi Discharge Problem: Acute cholecystitis Patient Disposition: Being Evaluated by Surgeon Condition: Good Forms Stand Alone Forms: [facility] Jump On It Prescriptions Prescriptions: No Action Ocrevus 30 mg/mL solution 600 mg IV Q6M Qty: 20 1RF Rx Instructions: 30 minutes before each infusion, premedicate with methylprednisolone 100mg IV, diphenhydramine 25mg IV, and acetaminophen 500mg PO, May give an additional 25mg diphenhydramine IV during infusion PRN. diazepam [Valium] 5 mg tablet 5 mg PO .COMPLEX PRN (Reason: anxiety) Qty: 2 0RF Rx Instructions: 5 mg PO TAKE 1 TABLET 1 HOUR PRIOR TO MRI, MAY REPEAT AT THE TIME OF MRI PRN; modafinil [Provigil] 200 mg tablet 200 mg PO QAM Qty: 30 5RF Mirena 20 mcg/24 hours (5 yrs) 52 mg intrauterine device 1 device IU CONTINOUS Zyrtec 10 mg capsule 10 mg PO DAILY PRN (Reason: seasonal allergies) Entyvio 300 mg recon soln 300 mg IV Q8WK citalopram 40 mg tablet 40 mg PO QAM clonazepam 1 mg tablet 1 mg PO BID cyanocobalamin (vitamin B-12) 1,000 mcg/mL Solution 1,000 mcg IM MONTHLY ergocalciferol (vitamin D2) [Vitamin D2] 50,000 unit Capsule 50,000 unit PO WK Rx Instructions: SATURDAYS omeprazole 20 mg Capsule,Delayed Release(Dr/Ec) 20 mg PO BID olmesartan 40 mg tablet 40 mg PO DAILY Referrals Referrals: Facundo Torres MD [Primary Care Provider] -
[2023-10-02 02:44] LABS: Basophils # (auto) 0.04 K/uL (0.00-0.20); Basophils % (auto) 0.6 %; Eosinophils # (auto) 0.27 K/uL (0.00-0.50); Eosinophils % (auto) 3.8 %; Hematocrit (blood only) 36.8 % (37.0-47.0); Hemoglobin 12.3 g/dl (12.0-16.0); Immature Granulocytes # (auto) 0.03 K/uL (0.01-0.20); Immature Granulocytes % (auto) 0.4 %; Lymphocytes # (auto) 1.61 K/uL (1.20-3.40); Lymphocytes % (auto) 22.9 %; Mean Corpuscular Hemoglobin 28.1 pg (25.0-34.0); Mean Corpuscular Hgb Conc 33.4 g/dL (32.0-36.0); Mean Corpuscular Volume 84.2 fL (80.0-100.0); Mean Platelet Volume 10.4 fL (9.4-12.4); Monocytes # (auto) 0.77 K/uL (0.11-0.59); Monocytes % (auto) 10.9 %; Neutrophils # (auto) 4.32 K/uL (1.40-6.50); Neutrophils % (auto) 61.4 %; Platelet Count 306 K/uL (130-400); RDW Coefficient of Variation 13.9 % (11.5-14.5); RDW Standard Deviation 42.7 fL (36.4-46.3); Red Blood Count 4.37 M/uL (4.20-5.40); White Blood Count 7.04 K/ul (4.8-10.8)
[2023-10-02] MEDS: SODIUM CHLORIDE 0.9% 1,000 ML IV ONE (02:44)
[2023-10-02] MEDS: MoRPHine SULFATE 4 MG/ML 1 ML CARP\\VIAL IV STA (02:45)
[2023-10-02] MEDS: ONDANSETRON INJ 2 MG/ML 2 ML VIAL IV STA (02:45)
[2023-10-02] MEDS: FAMOTIDINE 20MG IV PUSH 20 MG/5 ML SYR IV STA (02:46)
[2023-10-02 03:01] LABS: Albumin Globulin Ratio 1.4 (0.9-2); Albumin Level 3.9 gm/dl (3.4-5.0); BUN Creatinine Ratio 15.5 (10-20); Bilirubin,Total 0.3 mg/dl (0.2-1.0); Creatinine Clr Calc Pharmacy 112.7 ml/min; Est GFR (African American) 97.3 ml/min; Est GFR (Non-African American) 83.9 ml/min; Globulin 2.7 gm/dl (2.5-4.0); Potassium 3.5 mmol/L (3.5-5.1); Total Protein 6.6 gm/dl (6.0-8.3)
[2023-10-02 03:06] LABS: Troponin I High Sensitivity 3.9 pg/ml (0-14)
[2023-10-02 03:07] LABS: Pregnancy Test, Serum Negative (Negative)
--- NOTE | 2023-10-02 04:43 | Ultrasound Report ---
Exam(s): US GALLBLADDER EXAM: US Abdomen Limited, Gallbladder CLINICAL HISTORY: Reason for exam: ruq pain. TECHNIQUE: Real-time ultrasound of the right upper quadrant with image documentation. COMPARISON: No relevant prior studies available. FINDINGS: Liver: Increased hepatic echogenicity. Findings can be seen with hepatic steatosis. Gallbladder: Calculus at the gallbladder neck measuring 7 mm. Gallbladder wall thickness measures 5 mm. Common bile duct: The common duct measures 7 mm in diameter. No stones. No dilation. Pancreas: Unremarkable as visualized. IMPRESSION: 1. Findings which can be seen with cholecystitis with gallbladder wall thickening measuring up to 5 mm with calculus of the gallbladder neck. Additionally, the common duct is dilated 7 mm. This may be due to extrinsic compression. There is further concern for cholecystitis, consider HIDA imaging. Electronically signed by: Praful Smith MD 10/02/23 04:42 AM
--- NOTE | 2023-10-02 05:00 | History & Physical Report ---
Date of Service October 02, 2023 Assessment & Plan (1) Acute cholecystitis: (2) GERD (gastroesophageal reflux disease): (3) Multiple sclerosis: (4) Anemia: Plan Concern of Cholecystitis | Abdominal Pain -Sudden onset of abdominal pain overnight, pain worse at RUQ -Gallbladder Ultrasound: calculus at the gallbladder neck measuring 7 mm. Gallbladder wall thickness measures 5 mm. -CBC within normal limits, patient is afebrile. Liver function tests within normal limits. -Consider ordering MRCP, HIDA scans for further gallbladder evaluation if no immediate plans for surgery -General surgery consulted, appreciate recommendations -Will keep patient NPO while awaiting surgical evaluation -Plan to start IV fluids and IV Ceftriaxone -Analgesia and antiemetics ordered Hypertension -Continue home olmesartan Depression/Anxiety -Continue home Citalopram, Clonazepam Multiple Sclerosis -Receives outpatient vedolizumab infusions [id number] Admit to med/surg Diet: NPO VTE Prophylaxis: SCDs Code Status: Full Code History of Present Illness Primary Care Provider: MD Anika MartinezAndrew is a 43 year-old female with a past medical history of Crohn's disease, HTN, multiple sclerosis, GERD, and anemia who presented to the ED for concern of abdominal pain. She notes that she awoke in the middle of the night with sudden onset centralized abdominal pain, initially took Mylanta and Tums without relief. Notes she ate a cheesesteak for dinner, has had some diarrh ea for the past few days but assumed that was due to her Crohn's as she is due for her next infusion soon. She denies any nausea or vomiting, states that on arrival her pain was a 10/10 but is currently a 5/10 in intensity. Notes that the pain did worsen at her RUQ after the probe for the ultrasound was pressed there. Denies chest pain or shortness of breath. ED Course: -CBC, CMP -US Gallbladder, Chest XR Allergies Allergy/AdvReac Type Severity Reaction Status Date / Time glatiramer (copolymer 1) Allergy Intermediate severe Verified 10/02/23 02:42 [From Copaxone] wound from injection site nickel Allergy Intermediate "ITCHY, Verified 10/02/23 02:42 RED BUMPS" adhesive Allergy Mild RASH Verified 10/02/23 02:42 amoxicillin Allergy Mild Rash Verified 10/02/23 02:42 nitrofurantoin Allergy Mild RASH Verified 10/02/23 02:42 Penicillins Allergy Mild ITCHY, Verified 10/02/23 02:42 NAUSEATED Sulfa (Sulfonamide Allergy Mild RASH Verified 10/02/23 02:42 Antibiotics) teriflunomide [From Aubagio] Allergy Mild headache, Verified 10/02/23 02:42 dizziness, gastro problems fluvoxamine AdvReac Intermediate low heart Verified 10/02/23 02:42 rate Home Medications Medication Instructions Recorded Confirmed Type citalopram 40 mg tablet 40 mg PO QAM 12/03/18 10/02/23 History clonazepam 1 mg tablet 1 mg PO BID 12/03/18 10/02/23 History cyanocobalamin (vitamin B-12) 1,000 mcg IM MONTHLY 03/15/19 10/02/23 History 1,000 mcg/mL injection solution ergocalciferol (vitamin D2) 1,250 50,000 unit PO WK 03/15/19 10/02/23 History mcg (50,000 unit) capsule (Vitamin D2) levonorgestrel 21 mcg/24 hours (8 1 device intrauterine CONTINOUS 08/31/19 10/02/23 History yrs) 52 mg intrauterine device (Mirena) cetirizine 10 mg capsule (Zyrtec) 10 mg PO DAILY PRN seasonal 04/02/21 10/02/23 History allergies vedolizumab 300 mg intravenous 300 mg IV Q8WK 09/25/21 10/02/23 History solution (Entyvio) omeprazole 20 mg capsule,delayed 20 mg PO BID 11/17/22 10/02/23 History release ocrelizumab 30 mg/mL intravenous 600 mg (20 mL) IV Q6M #20 mL 12/15/22 10/02/23 Rx solution (Ocrevus) diazepam 5 mg tablet (Valium) 5 mg PO .COMPLEX PRN anxiety #2 03/25/23 10/02/23 Rx tabs modafinil 200 mg tablet (Provigil) 200 mg PO QAM #30 tabs 07/10/23 10/02/23 Rx olmesartan 40 mg tablet 40 mg PO DAILY 10/02/23 10/02/23 History Past Med/Surg History Medical History (Updated 02/09/24 @ 12:37 by Apollo Lemons DO, FACS) Acute calculous cholecystitis History of COVID-19 04/2022 - severe flu like symptoms. IUD (intrauterine device) in place Mirena 08/11 Claustrophobia only for MRI's Depression with anxiety GERD (gastroesophageal reflux disease) controlled with medication Anemia hx Crohn disease Multiple sclerosis follows with [facility] Pleural effusion (12/02/13) hx of 2013 Migraine hx Hypertension (12/02/13) resolved Pneumonia hx of Bronchitis hx of Surgical History History of bladder surgery (~10/2021) ant repair, had uterine suspension, but had to take down because of pain. History of tooth extraction Status post dilation and curettage History of colposcopy S/P LEEP (loop electrosurgical excision procedure) S/P excisional debridement left hip (resulted from Copaxone injection) History of esophagogastroduodenoscopy (EGD) History of colonoscopy Family History Father Family history of diabetes mellitus Sister Family history of diabetes mellitus Mother Colonic polyp Other No family history of adverse response to anesthesia Denies family history of Ovarian cancer Breast cancer Colorectal cancer Social History Smoking Status: Current every day smoker Tobacco Type: Cigarettes Cigarettes Per Day: 10-15; Second Hand Exposure: No; Do You Dip or Chew Tobacco: No; Tobacco Cessation Education Requested by Patient: No Hx Alcohol Use: No Hx Substance Use: No Preferred Language: [place] Communication Ability: Effective 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 Beliefs That Will Affect Care: None marital status: Current Living Situation: Spouse and Family Current Living Situation Comment: Lives with and 6 yr old daughter Other Information That Helps Us Care for You: No Feels Safe at Home: Yes Safety Concerns: Feels Safe At This Time Assistive Devices: None Review of Systems Review of Systems: As per above Physical Exam Constitutional: WD/WN, vitals as above Eyes: + anicteric sclerae; no conjunctival abn ormality ENMT: Ears: no external ear abnormality Nose: no external nose abnormality moist mucous membranes Respiratory: normal respiratory effort, lungs clear to auscultation Cardiovascular: Rate/Rhythm: regular rate and regular rhythm Gastrointestinal (Abdomen): Inspection/Auscultation: abdomen normal to inspection Percussion/Palpation: + abdomen tender and abdomen soft Significant pain with palpation of RUQ Skin: no rashes, warm and dry Neurologic: Moves all limbs independently Psychiatric: A+Ox3, euthymic affect Results & Data Results & Data Vital Signs (Past 12 Hours) Vital Signs Temp Pulse Resp BP Pulse Ox O2 Del Method 10/02/23 02:31 62 10/02/23 02:22 63 15 96 10/02/23 02:13 37 C 81 18 155/120 H 95 Room Air Diagnostic Findings Gallbladder Ultrasound 10/02/23 02:17 Exam(s): US GALLBLADDER EXAM: US Abdomen Limited, Gallbladder CLINICAL HISTORY: Reason for exam: ruq pain. TECHNIQUE: Real-time ultrasound of the right upper quadrant with image documentation. COMPARISON: No relevant prior studies available. FINDINGS: Liver: Increased hepatic echogenicity. Findings can be seen with hepatic steatosis. Gallbladder: Calculus at the gallbladder neck measuring 7 mm. Gallbladder wall thickness measures 5 mm. Common bile duct: The common duct measures 7 mm in diameter. No stones. No dilation. Pancreas: Unremarkable as visualized. IMPRESSION: 1. Findings which can be seen with cholecystitis with gallbladder wall thickening measuring up to 5 mm with calculus of the gallbladder neck. Additionally, the common duct is dilated 7 mm. This may be due to extrinsic compression. There is further concern for cholecystitis, consider HIDA imaging. Electronically signed by: Praful Smith MD 10/02/23 04:42 AM Supervising Physician Co-Signing Physician Notes Attending addendum: I have physically seen this patient, have supervised the medical residents activities, and agree with the H&P unless as otherwise noted. Assessment and Plan: Acute cholecystitis- Gallbladder ultrasound notes calculus of the gallbladder neck measuring 7 mm. Gallbladder wall thickness 5 mm normal CBC with differential and liver function tests Maintenance IV fluids as noted NPO Ceftriaxone 2 g IV daily Will discuss with surgery MRCP and HIDA scan, unless they are planning to take patient to the OR directly Zofran 4 mg IV every 6 hours as needed Pantoprazole 40 mg IV daily Hypertension- Hold olmesartan Depression with anxiety- Hold citalopram and clonazepam while n.p.o. Multiple sclerosis- Infusion in the outpatient setting Resident Activity Tracking Resident Involvement: Resident Care Provided Care Provided: Adult [facility]
--- NOTE | 2023-10-02 05:13 | Surgery Consultation ---
Date of Consultation October 02, 2023 Assessment & Plan (1) Acute cholecystitis: Discussed with the treating clinician emergency department patient is being mated to hospital service. From surgery perspective we recommend the following Provide analgesics provide antiemetics implement n.p.o. status Provide IV fluid for hydration Antibiotics in the form of cefoxitin have been initiated and should continue Appears the patient may benefit from cholecystectomy. Patient will be seen and evaluated by Dr. Lemons this morning to make a determination about timing of potential surgical procedure Would recommend using only SCDs for DVT prevention, no chemical means due to potential cholecystectomy Additional recommendations to be forthcoming based on her clinical course as unfolds Supervising Physician Co-Signing Physician Notes Please see today's progress note for further details. Admitted with suspected cholecystitis, plan for cholecystectomy today History of Present Illness Reason for Consultation: Cholecystitis History of Present Illness This a 43-year-old female who presented the emergency department secondary to epigastric and right upper quadrant abdominal pain. She notes that the pain woke her up from sleep. She says that in the past she has not had any postprandial pain but last evening she ate a cheese steak which she feels may have precipitated her symptomatology. She did add that over the past several weeks she does feel more full after eating however. She had nausea without vomiting. She denied any fevers, shakes, or chills. She denies any radiation of the pain. She notes that the pain was improved with medicines administered in emergency department but she does not report any other mitigating factors. Patient denies any prior history of prior abdominal surgeries. Since arrival to hospital patient had labs and imaging which have been reviewed. Chest x-ray did not appear to have any evidence of pneumonia. Gallbladder ultrasound showed the patient had gallbladder wall thickness measuring approximate 5 mm. There is a gallstone in the gallbladder neck measuring 7 mm. These findings were potentially felt to represent cholecystitis. Labs include CBC white blood cell count, hemoglobin and platelet count were all normal. Hematocrit was slightly low at 36.8. Chemistry profile showed sodium and potassium along with BUN and creatinine were normal. Patient's LFTs were nonelevated. Lipase was not elevated. test was negative. Patient does note that she does have a history of Crohn's disease and she states that this is well-controlled. She states that for her Crohn's she receives vedolizumab infusion every 8 weeks. She also notes she has a history of multiple sclerosis which she also says is well-controlledshe says that this condition does not limit her mobility and she has not had any other chronic issues related to this problem. She says she does receive ocrelizumab infusion every 6 months At the time of my interview the patient was resting comfortably bed and she was in no distress. Allergies Allergy/AdvReac Type Severity Reaction Status Date / Time glatiramer (copolymer 1) Allergy Intermediate severe Verified 10/02/23 02:42 [From Copaxone] wound from injection site nickel Allergy Intermediate "ITCHY, Verified 10/02/23 02:42 RED BUMPS" adhesive Allergy Mild RASH Verified 10/02/23 02:42 amoxicillin Allergy Mild Rash Verified 10/02/23 02:42 nitrofurantoin Allergy Mild RASH Verified 10/02/23 02:42 Penicillins Allergy Mild ITCHY, Verified 10/02/23 02:42 NAUSEATED Sulfa (Sulfonamide Allergy Mild RASH Verified 10/02/23 02:42 Antibiotics) teriflunomide [From Aubagio] Allergy Mild headache, Verified 10/02/23 02:42 dizziness, gastro problems fluvoxamine AdvReac Intermediate low heart Verified 10/02/23 02:42 rate Home Medications Medication Instructions Recorded Confirmed Type citalopram 40 mg tablet 40 mg PO QAM 12/03/18 10/02/23 History clonazepam 1 mg tablet 1 mg PO BID 12/03/18 10/02/23 History cyanocobalamin (vitamin B-12) 1,000 mcg IM MONTHLY 03/15/19 10/02/23 History 1,000 mcg/mL injection solution ergocalciferol (vitamin D2) 1,250 50,000 unit PO WK 03/15/19 10/02/23 History mcg (50,000 unit) capsule (Vitamin D2) levonorgestrel 21 mcg/24 hours (8 1 device intrauterine CONTINOUS 08/31/19 10/02/23 History yrs) 52 mg intrauterine device (Mirena) cetirizine 10 mg capsule (Zyrtec) 10 mg PO DAILY PRN seasonal 04/02/21 10/02/23 History allergies vedolizumab 300 mg intravenous 300 mg IV Q8WK 09/25/21 10/02/23 History solution (Entyvio) omeprazole 20 mg capsule,delayed 20 mg PO BID 11/17/22 10/02/23 History release ocrelizumab 30 mg/mL intravenous 600 mg (20 mL) IV Q6M #20 mL 12/15/22 10/02/23 Rx solution (Ocrevus) diazepam 5 mg tablet (Valium) 5 mg PO .COMPLEX PRN anxiety #2 03/25/23 10/02/23 Rx tabs modafinil 200 mg tablet (Provigil) 200 mg PO QAM #30 tabs 07/10/23 10/02/23 Rx olmesartan 40 mg tablet 40 mg PO DAILY 10/02/23 10/02/23 History Patient History Medical History History of COVID-19 04/2022 - severe flu like symptoms. IUD (intrauterine device) in place Mirena 08/11 Claustrophobia only for MRI's Depression with anxiety GERD (gastroesophageal reflux disease) controlled with medication Anemia hx Crohn disease Multiple sclerosis follows with [facility] Pleural effusion (12/02/13) hx of 2013 Migraine hx Hypertension (12/02/13) resolved Pneumonia hx of Bronchitis hx of Surgical History History of bladder surgery (~10/2021) ant repair, had uterine suspension, but had to take down because of pain. History of tooth extraction Status post dilation and curettage History of colposcopy S/P LEEP (loop electrosurgical excision procedure) S/P excisional debridement left hip (resulted from Copaxone injection) History of esophagogastroduodenoscopy (EGD) History of colonoscopy Family History Father Family history of diabetes mellitus Sister Family history of diabetes mellitus Mother Colonic polyp Other No family history of adverse response to anesthesia Denies family history of Ovarian cancer Breast cancer Colorectal cancer Social History Smoking Status: Current every day smoker Tobacco Type: Cigarettes Cigarettes Per Day: 10-15; Second Hand Exposure: No; Do You Dip or Chew Tobacco: No; Tobacco Cessation Education Requested by Patient: No Hx Alcohol Use: No Hx Substance Use: No Preferred Language: [place] Communication Ability: Effective 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 Beliefs That Will Affect Care: None marital status: Current Living Situation: Spouse and Family Current Living Situation Comment: Lives with and 6 yr old daughter Other Information That Helps Us Care for You: No Feels Safe at Home: Yes Safety Concerns: Feels Safe At This Time Assistive Devices: None Review of Systems Constitutional: no fever and no chills Eyes: + corrective lenses Ear, Nose, Mouth, Throat: no hearing loss Respiratory: no cough Cardiovascular: no chest pain Gastrointestinal: as per Subjective / HPI Genitourinary: no dysuria Musculoskeletal: no back pain Integumentary: no rash Neurologic: no localized weakness Physical Exam Constitutional: well developed and well nourished; no acute distress Eyes: + anicteric sclerae Wears glasses ENMT: Ears: no hearing impairment and no external ear abnormality No sublingual jaundice noted Neck: trachea midline Respiratory: normal respiratory effort; no respiratory distress and no labored breathing Cardiovascular: Rate/Rhythm: regular rate and regular rhythm Gastrointestinal (Abdomen): Abdomen is rotund but soft and nonrigid. Patient did have pain with palpation epigastric area as well as pain with palpation in the right upper quadrant Musculoskeletal: No calf tenderness Skin: no rashes Neurologic: moves all extremities Psychiatric: A+Ox3, euthymic affect Results & Data Vital Signs (Past 12 Hours) Vital Signs Temp Pulse Resp BP Pulse Ox O2 Del Method 10/02/23 02:31 62 10/02/23 02:22 63 15 96 10/02/23 02:13 37 C 81 18 155/120 H 95 Room Air PG Care Time/CCT Total # of Minutes Spent Total Time Spent with Patient: Total time spent is greater than 50% in coordination of care (as documented) at patient's floor/unit and/or counseling patient: Coding Level of Care Code 31009 IN/OBS CONSULT LVL 5,80M Diagnoses Acute cholecystitis K81.0
[2023-10-02] MEDS: cefOXitin 2,000 MG/60 ML BAG IV STA (06:09)
[2023-10-02] MEDS: SODIUM CHLORIDE 0.9% 1,000 ML IV SCH (06:21)
--- NOTE | 2023-10-02 07:16 | XRay Report ---
XR chest 1V portable CLINICAL HISTORY: Chest pain, nonspecific COMPARISON STUDY: Chest CT June 22, 2019. Chest radiograph May 26, 2023. FINDINGS: Lung volumes are normal. Lungs are clear. There is no pneumothorax or pleural effusion. The re is mild enlargement of the cardiac silhouette. Mediastinal contours are normal. There is no eviden ce for pulmonary edema. IMPRESSION: No acute cardiopulmonary findings. Mild enlargement of the cardiac silhouette. ACT 112: Negative or not required by law. Electronically signed by: Kishor Bell M.D. 10/02/2023 7:15 AM
[2023-10-02 08:01] LABS: Basophils # (auto) 0.03 K/uL (0.00-0.20); Basophils % (auto) 0.5 %; Eosinophils # (auto) 0.17 K/uL (0.00-0.50); Eosinophils % (auto) 2.8 %; Hematocrit (blood only) 33.4 % (37.0-47.0); Immature Granulocytes # (auto) 0.03 K/uL (0.01-0.20); Immature Granulocytes % (auto) 0.5 %; Lymphocytes # (auto) 1.45 K/uL (1.20-3.40); Lymphocytes % (auto) 24.2 %; Mean Corpuscular Hemoglobin 28.1 pg (25.0-34.0); Mean Corpuscular Hgb Conc 32.9 g/dL (32.0-36.0); Mean Corpuscular Volume 85.4 fL (80.0-100.0); Mean Platelet Volume 10.3 fL (9.4-12.4); Monocytes # (auto) 0.64 K/uL (0.11-0.59); Monocytes % (auto) 10.7 %; Neutrophils # (auto) 3.68 K/uL (1.40-6.50); Neutrophils % (auto) 61.3 %; Platelet Count 274 K/uL (130-400); RDW Standard Deviation 43.8 fL (36.4-46.3); Red Blood Count 3.91 M/uL (4.20-5.40)
--- OUTSIDE RECORDS SUMMARY | 2023-10-02 08:09 | External Medical Summary | Continuity of Care Document ---
Author Name Unknown Organization [id number] Address [address] [place] [phone] Care Team Providers Care People Greeter Name Role Phone TorresJasminafermin Robbi Primary Care Physician [phone] [id number] Date(s): 08/31/23 - 08/31/23 [facility] [address] [facility] [address] [facility] [address] [place], [place] [id number] Encounter Diagnosis Left knee pain(Discharge Diagnosis) - 08/31/23 Discharge Disposition: Home or Self Care Attending Physician: ADRIANO Do [place] Allergies, Adverse Reactions, Alerts Substance Reaction Severity Status amoxicillin Itching Hives Rash Active penicillin Rash Itching Hives Active penicillins hives Active sulfa drugs hives Rash Itching Hives Active Macrobid insomnia, abdominal pain Act olena Nickel rash hives Active flu vaccines intense head pain-occipital neuralgia Active Assessment and Plan Extracted from: Title:Clinical Document Author:ADRIANO DoYaron Date:08/31/23 OUTPATIENT NOTE Name: DURAN RAJAN Patient Number:[id number] : 1980 Date of Service: 08/31/2023 Complaint: Left knee/leg pain HPI: Octavio is a 43-year-old female here today for evaluation of her left lower leg, ER follow-up from 08/30/2023. She says yesterday she noticed she was having pain mostly on the lateral part of her knee radiating down the lateral aspect of her leg to her ankle. Trouble weightbearing. No major swelling she noted. No numbness or tingling. She has a trip to [place] on Thursday and was worried about blood clot so she went to the ER where they did a DVT ultrasound and it was negative for any DVTs. She reports that she is overweight, has MS, Crohn's. She is unable to take any NSAIDs because of the Crohn's. She has been taking Tylenol. She denies any previous issues with her left knee. She says her right knee was previously hurting her and she went and saw her PCP and they thought maybe it was arthritis. She denies any recent x-rays of her knees. She reports occasional burning type pain. She did not have any injury and has not been doing anything extra or out of the ordinary. She says it somewhat feels better when stretching her leg and doing dorsiflexion. Physical exam: Patient is walking with an antalgic gait with no assistive devices. There is no major swelling or pitting edema. No knee effusion noted. She has tenderness over the medial and lateral joint line but mostly lateral. She also has tenderness over the fibular head. There is some tenderness tracking the superficial peroneal nerve down to her ankle. She has full extension flexion is slightly limited to about 100 degrees compared to her right knee which she has about 115 degrees. She struggles with resisted knee flexion due to some discomfort. She is able to resist knee extension and has a good straight leg raise. Her MCL and LCL are intact with varus and valgus stress however she does report pain laterally when doing these exercises. Negative Shauna's. Difficulties to assess patient's Akhil's due to her limited range of motion guarding. She reported pain with flexion up to 90 degrees and with slight internal and external rotation of her knee. Pain was reported again laterally. X-rays: 4 view left knee x-rays were done today in the office and reviewed by me that show mild medial joint space narrowing, small lateral cortical projection noted over the lateral femoral condyle. Patient appeared to have some previous x-rays that were reviewed from 10/28/2022. No acute fractures. Radiology report not him during time of dictation. Assessment/plan: left lateral knee/leg pain suspect superficial peroneal neuritis Findings and plan discussed with patient. Suggested we start her on prednisone 12-day taper to help with her acute pain, inflammation. Does have crutches to help with her walking if she needs to. I gave her some rehab stretches and exercises that she can begin to do once things calm down. Really suggested that she try to avoid any pressure over that area of her knee or leg. Really try to rest. Especially before her trip coming up to [place] on Thursday. She can trial ice/heat. She will like to follow-up as needed. She said she may also follow-up with her neurologist if this is an MS flare. Immunizations Given and Recorded Vaccine Date Status Refusal Reason pneumococcal 13-valent vaccine 08/02/21 Given pneumococcal 23-valent vaccine 07/18/20 Given pneumococcal 23-valent vaccine 1 04/02/09 Recorded tetanus/diphtheria/pertuss, acel (Tdap) 06/27/19 G iven tetanus toxoids-diphtheria, Td (Adult) 2 06/24/04 Recorded 1Result Comment: 2019-06-27: Historical information-source unspecified 2Result Comment: 2019-06-27: Historical information-source unspecified Medications BD LUER 3CC SYN 25GX1" BD LUER 3CC SYN 25GX1", See Instructions, Disp# 3 unknown unit, Refills: 3, USE FOR ADMINISTRATION OF B12 INJECTIONS MONTHLY, [facility] Start Date: 12/12/21 Status: Ordered Chantix Starter Pack 0.5 mg-1 mg oral tablet Start: 08/10/23 8:13:00 EST, 1 tab, PO, bid, Disp# 1 packet, Refills: 0, Pharmacy: [id number] Start Date: 08/10/23 Status: Ordered citalopram 40 mg oral tablet Start: 07/24/22 21:15:00 EST, See Instructions, Disp# 90 tab, Refills: 1, TAKE 1 TABLET ONCE DAILY,Pharmacy: [facility] Start Date: 07/24/22 Status: Ordered clonazePAM 1 mg oral tablet Start: 06/10/22 15:27:00 EDT, 1 tab, PO, bid, Disp# 60 tab, Refills: 1, PRN: anxiety, Pharmacy: [facility] #[id number] Start Date: 06/10/22 Status: Ordered cyanocobalamin 1000 mcg/mL injectable solution Start: 01/06/22 14:19:00 EDT, See Instructions, Disp# 3 mL, Refills: 3, INJECT 1ML (1,000MCG) INTRAMUSCULARLY EVERY MONTH. DISCARD 28 DAYS AFTER FIRST USE., Pharmacy: [facility] Start Date: 01/06/22 Status: Ordered doxycycline hyclate 100 mg oral capsule Start: 05/26/23 16:13:00 EDT, 1 cap, PO, bid, Disp# 14 cap, Pharmacy: [facility] #[id number] Start Date: 05/26/23 Stop Date: 06/02/23 Status: Ordered Entyvio 300 mg intravenous injection Start: 09/24/22 11:09:00 EST, 300 mg =, IV, [id number], Disp# 1 each, Refills: 5 Start Date: 09/24/22 Status: Ordered ergocalciferol 1.25 mg (50,000 intl units) oral capsule Start: 01/30/22 6:59:00 EDT, See Instructions, Disp# 13 cap, Refills: 2, TAKE 1 CAPSULE EVERY 7 DAYS., Pharmacy: [facility] Start Date: 01/30/22 Status: Ordered folic acid Start: 05/01/23 8:04:00 EDT Start Date: 05/01/23 Status: Ordered Mirena Start: 11/22/21 8:46:00 EDT Start Date: 11/22/21 Status: Ordered modafinil 200 mg oral tablet Start: 08/27/22 16:07:00 EST, 1 tab, PO, qAM Start Date: 08/27/22 Status: Ordered ocrelizumab 300 mg/10 mL intravenous solution Start: 05/25/18 8:22:00 EDT, 600 mg =, IV, every 6 months Start Date: 05/25/18 Status: Ordered olmesartan 40 mg oral tablet Start: 04/28/23 15:24:00 EDT, 1 tab, PO, Daily, Disp# 30 tab, Refills: 6, Pharmacy: [facility] #[id number] Start Date: 04/28/23 Stop Date: 11/24/23 Status: Ordered omeprazole 20 mg oral delayed release capsule Start: 06/23/23 10:04:00 EDT, 1 cap, PO, bid, Disp# 180 cap, Refills: 1, Pharmacy: [facility] [id number] Start Date: 06/23/23 Status: Ordered predniSONE 10 mg oral tablet Start: 08/31/23 16:33:00 EST, 1 tab, PO, Daily, Disp# 30 tab, 12 day taper 40, 40, 40, 30, 30, 30, 20, 20, 20, 10, 10, 10, Pharmacy: [id number] Start Date: 08/31/23 Status: Ordered vitamin E Start: 05/01/23 8:05:00 EDT Start Date: 05/01/23 Status: Ordered Mental Status 08/31/23 Barriers to Learning one year None evide nt Mandatory Health Literacy Documentation Yes Health Literacy Communication Barriers N ever Primary Language Romanian Problem List Condition Confirmation Course Effective Dates Status Health Status Informant Melasma Confirmed Active Crohn's ileocolitis Confirmed Active Cystocele with prolapse Confirmed Active Patellofemoral syndrome Confirmed Active Epigastric pain Confirmed Active MARLEE (stress urinary incontinence, female) Confirmed Active Fever Confirmed Active Frequency of urination Confirmed Active Generalized anxiety disorder Confirmed Active GERD Confirmed Active History of pneumonia Confirmed Active Hemorrhoid Confirmed Active H/O immunosuppressive therapy Confirmed Active HTN (hypertension) Confirmed Active Influenza-like illness Confirmed Active LUQ abdominal pain Confirmed Active Lesion of neck Confirmed Active Lesion of nose Confirmed Active Urinary incontinence, mixed Confirmed Active Depression Confirmed Active Morbid obesity Confirmed Active MS (multiple sclerosis) Confirmed Active MS (multiple sclerosis) Confirmed 2010 Active Muscle ache Confirmed Active Obesity Confirmed Active Cough Confirmed Active OCD (obsessive compulsive disorder) Confirmed Active Encounter for health maintenance examination in adult Confirmed Active Persistent cough Confirmed Active Grouped skin lesions Confirmed Active Skin tag Confirmed Active Hepatic steatosis Confirmed Active Tobacco user Confirmed Active Urge incontinence Confirmed Active Urgency of urination Confirmed Active Uterine prolapse Confirmed Active Vitamin D deficiency Confirmed Active Weight disorder Confirmed Active Diagnosis Diagnosis Type Effective Dates Health Status Cl inical Service Informant Left knee pain Discharge Diagnosis 08/31/23 Non-Specified Procedures Procedure Date Related Diagnosis Body Site Status Colonoscopy 1 11/25/22 Completed Endoscopy and biopsy of uppe r gastrointestinal tract 2 11/25/22 Complet ed Mammogram 3 09/19/22 Completed X-ray of right ankle 4 08/14/22 Co mpleted Laboratory findings data interpretation 5 01/03/22 Completed HYSTERECTOMY TOTAL VAGINAL 6 10/21/21 Completed Anterior colporrhaphy 10/09/21 Com pleted Cystoscopy 10/09/21 Completed Posterior colporrhaphy 10/09/21 Co mpleted Sacrospinous ligament 7 10/09/21 C ompleted Surgery 8 10/09/21 Completed Mammogram - screening 9 09/13/21 C ompleted Laboratory findings data interpretation 10 07/05/21 Completed Laboratory findings data interpretation 11 04/30/21 Completed MRI of brain 12 04/02/21 Completed MRI of cervical spine 13 04/02/21 Completed Colonoscopy 14 01/11/21 Completed Polysomnograph 15 06/27/20 Complet ed Colonoscopy 16 04/02/20 Completed Upper GI endoscopy 17 04/02/20 Com pleted Insertion of IUD 08/18/19 Complete d X-ray of left foot 18 06/28/19 Com pleted Chest x-ray 19 06/22/[address] of chest 20 06/22/19 Completed CXR - Chest X-ray 21 05/26/19 Comp leted Mammogram diagnostic & Left US 22 03/31/19 Completed Colonoscopy 23 03/24/19 Completed Mammogram 24 04/30/18 Completed MRI of brain and brain stem 25 04/06/18 Completed MRI of cervical spine 26 04/06/18 Completed X-ray RT ankle/foot 27 07/15/17 Co mpleted MRI-Brain 28 05/19/17 Completed Bone scan 29 05/15/17 Completed Chest x-ray 30 05/15/17 Completed X-ray of thoracic spine 31 05/15/17 Completed MRI of brain with contrast & without contrast 32 04/15/17 Completed MRI of cervical spine with c ontrast & without contrast 33 04/15/17 Completed X-ray of thoracic spine 34 04/15/17 Completed Angiography HEAD COMBO 35 04/14/[address] of brain 36 04/13/17 Completed X-ray of left knee 37 03/03/17 Com pleted Pap smear for cervical cance r screening 38 01/26/17 Completed Colonoscopy 39, 40 01/16/17 Comple logan Upper GI endoscopy 41 01/16/17 Com pleted Chest x-ray 42 12/23/16 Completed CXR - Chest X-ray 43 12/23/16 Comp leted Ultrasound 44 12/18/16 Completed MRI 45 09/22/16 Completed MRI of cervical spine 46 06/25/16 Completed MRI-Brain 47 06/25/16 Completed CXR - Chest X-ray 48 05/21/16 Comp leted ECG 49 05/21/16 Completed CXR - Chest X-ray 50 03/31/16 Comp leted EKG 51 03/31/16 Completed Skin tag 52 03/2016 Completed CXR - Chest X-ray including left ribs 53 01/31/16 Completed CXR - Chest X-ray 54 01/10/16 Comp leted MRI 55 10/26/15 Completed MRI 56 03/05/15 Completed Thoracic spine 57 02/23/15 Complet ed Chest x-ray 58 02/22/15 Completed Mammogram 59 09/13/14 Completed Date of last PAP smear 60 01/21/14 Completed MRI of brain 01/11/14 Completed Surgery 61 2011 Completed Chest x-ray 62 Completed left hip wound surgical debridement--10/06 Completed Sleep studies 63 Complete d 1The rectum, sigmoid colon, descending colon, splenic flexure, transverse colon, hepatic flexure, ascending terminal ileum and appendiceal orfice are normal. No specimens collected. 2Normal Esophagus. Normal examined duodenum. Biopsed. Two biopsies were obtained on the greater curvature of the gastric antrum and on the lesser curvature of gastric antrum. 3There is no mammographic evidence of malignancy. 4Impression: Soft tissue swelling about the ankle without evidence of underlying acute fracture. 5CBC nl , ferritin 942 H, Fe sat 41%. 6auto-populated from documented surgical case 7hysterpexy 8Bulkimed injections 9There is no mammographic evidence of malignancy. A 1 year screening mammogram is recommended. The patient will receive written notification of the results. 10CBC, BUN, CR, ALT normal. 11BUN, CR AST, ALT, CBC normal. 12Impression: 1. no acute intracranial abnormality is identified 2. numerous foci of T2 signal abnormality are again seen throughout the subcortical and periventricular white matter. this has not appreciable changed in distribution from the 03/27/20 examination 3. no abnormal postcontrast enhancement is identified to suggest active demyelination 13with and without contrast impression: no change in the demyelinating plaques within the cervical spinal cord at the C2 and T1 levels. No new lesions or abnormal enhancement identified 14The exam ined portion of the ileum was normal The entired examined colon was normal no specimens collected 151. Relatively unremarkable night sleep. No significant sleep disorder breathing identified. 2. Mild intermittent snoring without evidence of sleep disordered breathing. 16Impression: Stricture at the ileocecal valve. Aphtha in the terminal ileum. The entire examined colon is normal. No specimens collected. 17Findings: The z-line was regular and was found 36 cm from the incisiors. The examined esophagus was normal The entire examined stomach was normal. The examined duodenum was normal. 181. no acute fx 2. no radiopaque foreign bodies identified 19No active disease in chest 20IMPRESSION: 1. No evidence of pulmonary thromboembolic disease. 2. Groundgalss and alveolar opacities of the right lower lobe are suggestive of pneumonia. Follow-up imaging to document resolution is recommended. 3. No adenopathy or pleural effusion. 21No active disease in chest. 22Impression: No suspicious mammographic or sonographic abnormality at the site of the palpable left breast lump pointed out by the patient. There is no mammographic or sonographic evidence of malignancy. Recommend clinical follow-up for the palpable left breast lump, and recommend routine bilateral screening mammograms in 1 year. The patient has been verbally notified of the results. 23There was a small lipoma, 9mm in a diameter, in the mid ascending colon A benign-appearing, intrinsic mild stenosis was found at the ileocecal valve and was non-traversed The terminal ileum contained multiple patchy non-bleeding aphthae. No stigmata of recent bleeding were seen. No specimens collected. 24Cat 2- Benign 25Impression: Interval increase in number of white matter lesion. One of these lesions demonstrates enhancement consistent with active demyelination. Findings compatible with progression of known the demyelinating disease 26Impression: No change in several foci of demyelination within the cord at the C2 and T1 levels since MRI of April 15, 2017. No new plaques identified. No evidence for active demyelination. No change in mild degenerative disc disease at C5-C6 and C6-C7. Patent central canal and neural foramen. 27Impression: No acute bony abnormality is seen in the right foot. 28No acute intracranial abnormality Previously noted multifocal abnormal foci of T2/Flair hyperintensity in the subcortical white matter are unchanged in size and number. These do not enhance and are nonspecific. These could be seen inthe setting of demyelinating disease among other etiologies Interval resolution of previously noted FLAIR hyperintensity in the subarachnoid space. No findingson the current exam to suggest posterior erversible encephalopathy syndrome. Mucosal thickening in the right maxillary sinus, new from prior. 29Impression: No significant abnormal radiotracer uptake. 30Impression: No active disease in the chest There is no radiographic evidence of rib fracture on the bilateral rib series. 31Impression: Mild degenerative change. No fractures or destructive lesions are visualized on conventional radiographic imaging. 32Impression: Signal abnormality within the subarachnoid space at the right parietal and right occipital lobes. this can be seen in the setting of trace subarachnoid hemorrhage. however, this area alsodemonstrates faint leptomeingeal enhancement. therefore, an infectious process such as meningitis or Lyme disease cannot be excluded. Posterior reversible encephalopathy syndrome could also have a similar appearance in the appropriate clinical setting. Lumbar puncture for further evaluation if clinically warranted. Otherwise, no significant change in the scattered white matter plaques within the brain consistent with the patient's history of multiple sclerosis. 33Impression: No significant change since MRi of June 25, 2016. No change in the foci of demyelination at the C2 and T1 levels. no evidence of active demyelination. No new plaques identified. 34Impression: No change in a 6 mm T2 hyperintense focus within the thoracic cord at the T1 level since MRI of june 25, 2016 consistent with previous demyelination. No additional thoracic cord plaques. 35Impression: No acute intracranial abnormality Unremarkable CTA of the head without aneurysm, dissection, high-grade stenosis or proximal branch occlusion. 36No acute intracranial abnormality 37Mild medial soft tissue swelling with small joint effusion. No acute fracture or dislocation. 38diagnosis: negative for intraepithelial lesion or malignancy 39Congested and ulcerated mucosa in the terminal ileum. Biopsied. Aphtha at the hepatic flexure. Biopsied 40Pathology: A. Ileum, terminal(biopsy): 1, Moderate chronic active ileitis with lymhoid hyperplasia is seen. 2. Focal blunting of the villous architecture is seen. 3. Granulomatous inflammation is absent. 4. Giardia lamblia organisms are not seen. 5. The clinical history of abdominal pain and changein bowel habits is noted. 6. Please note this part has been reviewed by one of my colleagues in the dept of patholgy and he agrees with rendered diagnosis on this part. B. Colon, hepatic flexure ulcer: 1. Focal active colitis with moderate diffuse edema consistent with a self-limited/infectious colitis is seen. 2. An Ulcer with fibrinopurulent exudate is not seen on levels x3. 3. Grandular architecture is maintained. 4. Granulomatous inflammation is absent. 5. See comment in report. 41Normal esophagus Normal stomach Normal examined duodenum No specimens collected. 42Impression: negative chest. 43The bones soft tissues and hemidiaphragms are normal. The cardiomediastinal silhouette is normal. The lungs are clear. The pulmonary vasculature is normal. 44Unremarkable sonographic assessment of the abdomen 45brain No significant change in the scattered white matter plaques within the brain consistent with the Pt's hx of mutiple sclerosis. No evidence for active demyelination. 46No significant change in the foci of demyelination within the C2 and T1 levels. No areas of enhancement to suggest active demyelination. 47No significant change in the scattered white matter plaques within the brain consistent with pt's history of multiple sclerosis. No evidence for active demyelination 48No active disease in the chest. 49rate; 58 sinus bradycardia no acute ischemic changes 50No acute process. 51Normal sinus rhythm Normal ECG When compared with ECG opf 19 nov 2015 No significant change was found 52removal; no specimen sent for pathology. 531. No evidence of pneumothorax 2. No left-sided rib fractures identified. No destructive lesions are visualized on conventional radiographic imaging. 54No active disease in the chest 55The majority of the scarttered white matter plaques are stable. The dominant white matter plaque within the left hemipon has decreased in size and there is a 6mm focus within the left posterior frontal lobe that has slightly increased in size. NO areas of enhancement to suggest active demyelination at this time Acute on chronic paranasal sinusitis. 56brain and cervical spine No significant change compared to the 01/11/2014 examination. Specifically the foci of demyelinationwithin the spinal cord at the C2 and T1 levels remain unchagned No new areas of demyelination or enhancement are identified 57radiography no fx or subluxation within the thoracic spine Mild neural foraminsl narrowing at T10-T11 58chest and bilate rib series No rib fx, no acute cardiopulmonary process 59Diagnostic mammogram--no mammographic evidence of malignancy in either breast. No etiology for leftbreast pain is evident. recommend clinical f/u for left breast pain and recommend routine B/L screening ammos atrating at the age of 40 unless otherwise clinically indicated. 60negative for malignancy 61wound closure of hip area 62No active disease in the chest. 63study start time 10:06 pm end 04/13/2020 05:45 am test condition room air with nasal cannula indicaitons for study Evaluation for sleep disordered breathing Impression/ diagnosis findings are consistent with mild obstructive sleep apnea. Recommendations. treatment options may include positive airway pressure pap devices such as pap cpap if apap is utilized for titration and or treatment an inital range setting of 5- 20 cm h2o may be considered if there are no contraindicaitons. If cpap is utilized without apap titration an in laboratory facility based pap titration may be considered. a mandibular reosistioning device oral appliance therapy would also be reasonable alternative for the treatment of mild obstructive sleep apnea based on patient preference and clinical presentation. efficacy testing once the device has been optimized should be strongly considered due to individual v ariabiltiy of response to dental devices. Social History Social History Type Response Tobacco Former smoker, Cigar ettes, Started age 13 Years. Previous treatment: None. 1, 2 Smoking Status Current every day he april smoker Sex 1QUIT 03/26/13 2Has quit 3 x before Implantable Device List Procedure Provider Procedure Date Device Type Site Unknown Unknown 10/09/21 Unknown Unknown Device Identifier Serial Number Lot or Batch Number Manufacturing Date Expiration Date Distinct Identification Code MRI Safety Implantable Status Assigning Authority Unknown Unknown [id number] AA Unknown 09/23/23 Unknown Unknown Active Unknown Outpatient Note * ADRIANO Do, Nancy: PERFORM, MODIFY, MODIFY Event Display: .Outpt Note Authored Date: [id number] OUTPATIENT NOTE Name: DURAN RAJAN Patient Number:[id number] : 1980 Date of Service: 08/31/2023 Complaint: Left knee/leg pain HPI: Octavio is a 43-year-old female here today for evaluation of her left lower leg, ER follow-up from 08/30/2023. She says yesterday she noticed she was having pain mostly on the lateral part of her knee radiating down the lateral aspect of her leg to her ankle. Trouble weightbearing. No major swelling she noted. No numbness or tingling. She has a trip to [place] on Thursday and was worried about blood clot so she went to the ER where they did a DVT ultrasound and it was negative for any DVTs. She reports that she is overweight, has MS, Crohn's. She is unable to take any NSAIDs because of the Crohn's. She has been taking Tylenol. She denies any previous issues with her left knee. She says herright knee was previously hurting her and she went and saw her PCP and they thought maybe it was arthritis. She denies any recent x-rays of her knees. She reports occasional burning type pain. She did not have any injury and has not been doing anything extra or out of the ordinary. She says it somewhat feels better when stretching her leg and doing dorsiflexion. Physical exam: Patient is walking with an antalgic gait with no assistive devices. There is no major swelling or pitting edema. No knee effusion noted. She has tenderness over the medial and lateral joint line but mostly lateral. She also has tenderness over the fibular head. There is some tenderness tracking the superficial peroneal nerve down to her ankle. She has full extension flexion is slightly limited to about 100 degrees compared to her right knee which she has about 115 degrees. She struggles with resisted knee flexion due to some discomfort. She is able to resist knee extension and has a good straight leg raise. Her MCL and LCL are intact with varus and valgus stress however she does report pain laterally when doing these exercises. Negative Shauna's. Difficulties to assess patient's Akhil's due to her limited range of motion guarding. She reported pain with flexion up to 90 degrees and with slight internal and external rotation of her knee. Pain was reported again laterally. X-rays: 4 view left knee x-rays were done today in the office and reviewed by me that show mild medial joint space narrowing, small lateral cortical projection noted over the lateral femoral condyle.Patient appeared to have some previous x- rays that were reviewed from 10/28/2022. No acute fractures.Radiology report not him during time of dictation. Assessment/plan: left lateral knee/leg pain suspect superficial peroneal neuritis Findings and plan discussed with patient. Suggested we start her on prednisone 12-day taper to helpwith her acute pain, inflammation. Does have crutches to help with her walking if she needs to. I gave her some rehab stretches and exercises that she can begin to do once things calm down. Really suggested that she try to avoid any pressure over that area of her knee or leg. Really try to rest. Especially before her trip coming up to [place] on Thursday. She can trial ice/heat. She will like tofollow-up as needed. She said she may also follow-up with her neurologist if this is an MS flare. Electronic Signature on File Electronically Reviewed/Signed by: Nancy Do PA-C Author Signature Dt/Tm:08/31/2023 04:40 PM Physician Die [facility], [facility] [address], [address] [address] Electronically Reviewed/Signed by: Nancy Do PA-C Cosigner Signature Dt/Tm: 08/31/2023 04:41 PM Physician Die Barber, [facility] [address], [address] [address] Electronically Reviewed/Signed by: Kaushal Levin MD Cosigner Signature Dt/Tm: 08/31/2023 04:51 PM [facility] Department of Orthopaedics and Rehabilitation [facility] [address], [place] [address] Patient Care team information Care Team Personnel Name: DELROY Flowers Tara Position: Nurse Pract - Family Med Member Role: Lifetime Relationship Address: Address: [address] [place] [id number] [place] Name: MD Brian, Fabio Culp Position: Physician Member Role: Primary Care Provider Address: Address: [address] [place] [id number] Care Team Related Persons Name: ROSALIE SHOEMAKER Address: home [address], [place] [id number] Name: MAMI SHOEMAKER Address: home [address] [facility] [id number] Name: MAMI SHOEMAKER Address: [facility] Address: home [address], [place] [id number]
[2023-10-02 08:16] LABS: Albumin Globulin Ratio 1.7 (0.9-2); Albumin Level 3.6 gm/dl (3.4-5.0); BUN Creatinine Ratio 14.5 (10-20); Bilirubin,Total 0.2 mg/dl (0.2-1.0); Calcium 8.4 mg/dl (8.6-10.3); Est GFR (African American) 98.7 ml/min; Est GFR (Non-African American) 85.2 ml/min; Globulin 2.1 gm/dl (2.5-4.0); Potassium 4.2 mmol/L (3.5-5.1); Total Protein 5.7 gm/dl (6.0-8.3)
[2023-10-02] MEDS: LOSARTAN POTASSIUM 50 MG TAB PO SCH (09:06)
[2023-10-02] MEDS: CITALOPRAM 40 MG TAB PO SCH (09:06)
[2023-10-02] MEDS: clonazePAM 1 MG TAB PO SCH (09:07)
[2023-10-02] MEDS ORDERED: PROCHLORPERAZINE 5 MG in SYRINGE 4 ML IV PRN (09:22)
--- NOTE | 2023-10-02 10:45 | Electrocardiogram Report ---
Test Reason : Blood Pressure : / mmHG Vent. Rate : 064 BPM Atrial Rate : 064 BPM P-R Int : 152 ms QRS Dur : 076 ms QT Int : 400 ms P-R-T Axes : 060 013 042 degrees QTc Int : 412 ms Normal sinus rhythm Normal ECG When compared with ECG of 23-MAY-2019 15:51, No significant change was found Confirmed by Humberto Ortiz ([id number]) on 10/02/2023 10:45:32 AM Referred By: REFERRED SELF Confirmed By:Humberto Ortiz
[2023-10-02] MEDS: ACETAMINOPHEN 1,000 MG/100 ML VIAL IV PRN (11:07)
[2023-10-02] MEDS: MoRPHine SULFATE 2 MG/ML CARP IV PRN (12:15)
--- NOTE | 2023-10-02 12:38 | Surgery Progress Note ---
Date of Service October 02, 2023 Assessment & Plan (1) Acute calculous cholecystitis: Plan: Cholelithiasis with acute cholecystitis plan for laparoscopic cholecystectomy with possible cholangiogram, possible robotic risks discussed to include but not limited to bleeding, infection, retained stone, bile leak, open surgery, damage to surrounding structures including bile duct, need for future or more extensive surgery, failure to treat symptoms, and risks of anesthesia. Likely discharge tomorrow Dr. Braga covering over weekend Wound care instructions, activity restrictions, return precautions given Follow-up with me in 2 weeks Admission and Anticipated Discharge Date Admission Date: October 02, 2023 Subjective Patient admitted with cholelithiasis with suspected cholecystitis. Still with pain. Physical Exam Constitutional: WD/WN, vitals as above + morbidly obese Gastrointestinal (Abdomen): Percussion/Palpation: + abdomen tender (Right upper quadrant and epigastric) and abdomen soft; no guarding and abdomen not rigid Results & Data Vital Signs (Past 12 Hours) Vital Signs Temp Pulse Pulse Resp BP BP Pulse Ox 10/02/23 08:00 36.8 C 82 18 149/86 H 97 10/02/23 07:30 46 L 23 135/70 93 10/02/23 06:50 48 L 23 94 10/02/23 06:40 48 L 24 94 10/02/23 06:36 51 L 24 93 10/02/23 06:36 50 L 16 120/66 94 10/02/23 06:35 44 L 10/02/23 06:35 50 L 16 94 10/02/23 03:50 56 L 21 90 10/02/23 03:40 55 L 23 90 10/02/23 03:30 58 L 25 H 91 10/02/23 03:20 59 L 22 92 10/02/23 03:10 56 L 18 94 10/02/23 03:00 55 L 26 H 93 10/02/23 02:53 57 L 17 91 10/02/23 02:53 150/76 H 10/02/23 02:50 54 L 18 95 10/02/23 02:40 60 22 96 10/02/23 02:31 61 24 94 10/02/23 02:31 62 10/02/23 02:22 63 15 96 10/02/23 02:13 37 C 81 18 155/120 H 95 O2 Del Method 10/02/23 08:00 Room Air 10/02/23 07:30 10/02/23 06:50 10/02/23 06:40 10/02/23 06:36 10/02/23 06:36 10/02/23 06:35 10/02/23 06:35 10/02/23 03:50 10/02/23 03:40 10/02/23 03:30 10/02/23 03:20 10/02/23 03:10 10/02/23 03:00 10/02/23 02:53 10/02/23 02:53 10/02/23 02:50 10/02/23 02:40 10/02/23 02:31 10/02/23 02:31 10/02/23 02:22 10/02/23 02:13 Room Air Laboratory Results Laboratory Results - last 24 hr 10/02/23 10/02/23 02:28 07:32 WBC 7.04 6.00 RBC 4.37 3.91 L Hgb 12.3 11.0 L Hct 36.8 L 33.4 L MCV 84.2 85.4 MCH 28.1 28.1 MCHC 33.4 32.9 RDW Std Deviation 42.7 43.8 RDW Coeff of Rhona 13.9 14.0 Plt Count 306 274 MPV 10.4 10.3 Immature Gran % (Auto) 0.4 0.5 Neut % (Auto) 61.4 61.3 Lymph % (Auto) 22.9 24.2 Millard % (Auto) 10.9 10.7 Eos % (Auto) 3.8 2.8 Baso % (Auto) 0.6 0.5 Neut # (Auto) 4.32 3.68 Lymph # (Auto) 1.61 1.45 Millard # (Auto) 0.77 H 0.64 H Eos # (Auto) 0.27 0.17 Baso # (Auto) 0.04 0.03 Immature Gran # (Auto) 0.03 0.03 Sodium 139 139 Potassium 3.5 4.2 Chloride 106 107 Carbon Dioxide 26 28 Anion Gap 7 4 BUN 13 12 Creatinine 0.84 0.83 Est Cr Clr Drug Dosing 112.7 114.0 Est GFR ( Amer) 97.3 98.7 Est GFR (Non-Af Amer) 83.9 85.2 BUN/Creatinine Ratio 15.5 14.5 Glucose 107 H 99 Calcium 9.0 8.4 L Total Bilirubin 0.3 0.2 AST 18 14 ALT 21 18 Alkaline Phosphatase 77 60 Troponin I High Sens 3.9 Total Protein 6.6 5.7 L Albumin 3.9 3.6 Globulin 2.7 2.1 L Albumin/Globulin Ratio 1.4 1.7 Lipase 29 14 HCG, Qual Negative Diagnostic Findings Exam(s): US GALLBLADDER EXAM: US Abdomen Limited, Gallbladder CLINICAL HISTORY: Reason for exam: ruq pain. TECHNIQUE: Real-time ultrasound of the right upper quadrant with image documentation. COMPARISON: No relevant prior studies available. FINDINGS: Liver: Increased hepatic echogenicity. Findings can be seen with hepatic steatosis. Gallbladder: Calculus at the gallbladder neck measuring 7 mm. Gallbladder wall thickness measures 5 mm. Common bile duct: The common duct measures 7 mm in diameter. No stones. No dilation. Pancreas: Unremarkable as visualized. IMPRESSION: 1. Findings which can be seen with cholecystitis with gallbladder wall thickening measuring up to 5 mm with calculus of the gallbladder neck. Additionally, the common duct is dilated 7 mm. This may be due to extrinsic compression. There is further concern for cholecystitis, consider HIDA imaging. PG Care Time/CCT Total # of Minutes Spent Total Time Spent with Patient: Total time spent is greater than 50% in coordination of care (as documented) at patient's floor/unit and/or counseling patient: Coding Level of Care Code 12856 SUB INP/OBS CARE 235MIN Diagnoses Acute calculous cholecystitis K80.00
[2023-10-02] MEDS: LACTATED RINGER'S 1,000 ML IV SCH (14:11)
[2023-10-02] MEDS ORDERED: fentaNYL citrate PF 100 MCG/2 ML VIAL ONE ×2 (14:11→16:07)
[2023-10-02] MEDS ORDERED: MIDAZOLAM HCL 1 MG/ML 2ML VIAL ONE (14:11)
--- NOTE | 2023-10-02 14:28 | Hospitalist Progress Note ---
"Date of Service October 02, 2023 Assessment & Plan (1) Acute cholecystitis: (2) GERD (gastroesophageal reflux disease): (3) Multiple sclerosis: (4) Anemia: Plan Concern of Cholecystitis | Abdominal Pain -Sudden onset of abdominal pain overnight, pain worse at RUQ -Gallbladder Ultrasound: calculus at the gallbladder neck measuring 7 mm. Gallbladder wall thickness measures 5 mm. -CBC within normal limits, patient is afebrile. Liver function tests within normal limits. -General surgery consulted, OR today for lap cholecystomy, possible dc tomorrow -Currently on IV Ceftriaxone, consider dc tomorrow without need for outpt abx -Analgesia and antiemetics ordered Hypertension -Continue home olmesartan Depression/Anxiety -Continue home Citalopram, Clonazepam Multiple Sclerosis -Receives outpatient vedolizumab infusions [id number] Admit to med/surg Diet: clear liquid diet VTE Prophylaxis: SCDs Code Status: Full Code Admission and Anticipated Discharge Date Admission Date: October 02, 2023 Supervising Physician Co-Signing Physician Notes Attending Physician Supervision Note: I independently interviewed and examined the patient and verified the arreola history and physical, reviewed labs and image studies and agree with findings and care plan noted above. Subjective Patient seen at bedside, calm comfortable cooperative. Denies fever SOB nausea/vomitting, has tenderness in abd RUQ. Patient understands she has gallstones and is currently awaiting surgery, asks when she might be discharged as she has young children at home. Physical Exam Constitutional: WD/WN, vitals as above Eyes: PERRL, conjunctivae normal, anicteric sclerae ENMT: external ear and nose normal, oropharynx normal Neck: trachea midline, no thyromegaly Respiratory: normal respiratory effort, lungs clear to auscultation Cardiovascular: RRR, no murmur, no edema Gastrointestinal (Abdomen): Inspection/Auscultation: abdomen normal to inspection Percussion/Palpation: + abdomen tender (RUQ and epigastric) Skin: no rashes, warm and dry Results & Data Results & Data Vital Signs (Past 12 Hours) Vital Signs Temp Pulse Pulse Pulse Resp BP BP 10/02/23 14:12 36.9 C 44 L 20 130/80 10/02/23 08:00 36.8 C 82 18 149/86 H 10/02/23 07:30 46 L 23 135/70 10/02/23 06:50 48 L 23 10/02/23 06:40 48 L 24 10/02/23 06:36 51 L 24 10/02/23 06:36 50 L 16 120/66 10/02/23 06:35 44 L 10/02/23 06:35 50 L 16 10/02/23 03:50 56 L 21 10/02/23 03:40 55 L 23 10/02/23 03:30 58 L 25 H 10/02/23 03:20 59 L 22 10/02/23 03:10 56 L 18 10/02/23 03:00 55 L 26 H 10/02/23 02:53 57 L 17 10/02/23 02:53 150/76 H 10/02/23 02:50 54 L 18 10/02/23 02:40 60 22 10/02/23 02:31 61 24 10/02/23 02:31 62 Pulse Ox O2 Del Method 10/02/23 14:12 95 Room Air 10/02/23 08:00 97 Room Air 10/02/23 07:30 93 10/02/23 06:50 94 10/02/23 06:40 94 10/02/23 06:36 93 10/02/23 06:36 94 10/02/23 06:35 10/02/23 06:35 94 10/02/23 03:50 90 10/02/23 03:40 90 10/02/23 03:30 91 10/02/23 03:20 92 10/02/23 03:10 94 10/02/23 03:00 93 10/02/23 02:53 91 10/02/23 02:53 10/02/23 02:50 95 10/02/23 02:40 96 10/02/23 02:31 94 10/02/23 02:31 Resident Activity Tracking Resident Involvement: Resident Care Provided Care Provided: Adult Hospital Medicine"
--- NOTE | 2023-10-02 15:05 | Anesthesiology Consultation ---
Date of Service October 02, 2023 Assessment & Plan Chart Review Chart Review: Acceptable Risk for Surgery Consults Requested none History Surgery Operation Date: 10/02/23 12:10 Proposed Procedures p Laparoscopic Cholecystectomy - Apollo Lemons DO, DEBORAH Height/Weight Height: 5 ft 5 in Weight: 125.5 kg Allergies Allergy/AdvReac Type Severity Reaction Status Date / Time glatiramer (copolymer 1) Allergy Intermediate severe Verified 10/02/23 02:42 [From Copaxone] wound from injection site nickel Allergy Intermediate "ITCHY, Verified 10/02/23 02:42 RED BUMPS" adhesive Allergy Mild RASH Verified 10/02/23 02:42 amoxicillin Allergy Mild Rash Verified 10/02/23 02:42 nitrofurantoin Allergy Mild RASH Verified 10/02/23 02:42 Penicillins Allergy Mild ITCHY, Verified 10/02/23 02:42 NAUSEATED Sulfa (Sulfonamide Allergy Mild RASH Verified 10/02/23 02:42 Antibiotics) teriflunomide [From Aubagio] Allergy Mild headache, Verified 10/02/23 02:42 dizziness, gastro problems fluvoxamine AdvReac Intermediate low heart Verified 10/02/23 02:42 rate Medications Home Medications Medication Instructions Recorded Confirmed Last Taken citalopram 40 mg tablet 40 mg PO QAM 12/03/18 10/02/23 10/01/23 clonazepam 1 mg tablet 1 mg PO BID 12/03/18 10/02/23 10/01/23 cyanocobalamin (vitamin B-12) 1,000 mcg IM MONTHLY 03/15/19 10/02/23 11/11/22 1,000 mcg/mL injection solution ergocalciferol (vitamin D2) 1,250 50,000 unit PO WK 03/15/19 10/02/23 09/26/23 mcg (50,000 unit) capsule (Vitamin D2) levonorgestrel 21 mcg/24 hours (8 1 device intrauterine CONTINOUS 08/31/19 10/02/23 11/25/22 yrs) 52 mg intrauterine device (Mirena) cetirizine 10 mg capsule (Zyrtec) 10 mg PO DAILY PRN seasonal 04/02/21 10/02/23 Unknown allergies vedolizumab 300 mg intravenous 300 mg IV Q8WK 09/25/21 10/02/23 11/11/22 solution (Entyvio) omeprazole 20 mg capsule,delayed 20 mg PO BID 11/17/22 10/02/23 10/01/23 release ocrelizumab 30 mg/mL intravenous 600 mg (20 mL) IV Q6M #20 mL 12/15/22 10/02/23 Unknown solution (Ocrevus) diazepam 5 mg tablet (Valium) 5 mg PO .COMPLEX PRN anxiety #2 03/25/23 10/02/23 Unknown tabs modafinil 200 mg tablet (Provigil) 200 mg PO QAM #30 tabs 07/10/23 10/02/23 10/01/23 olmesartan 40 mg tablet 40 mg PO DAILY 10/02/23 10/02/23 10/01/23 Active Medications Generic Name Dose Route Start Last Admin Trade Name Freq PRN Reason Stop Dose Admin Citalopram Hydrobromide 40 mg 10/02/23 09:00 10/02/23 09:06 Citalopram 40 Mg Tab PO 11/01/23 08:59 40 mg QAM ALAN Administration Clonazepam 1 mg 10/02/23 09:00 10/02/23 09:07 Clonazepam 1 Mg Tab PO 11/01/23 08:59 1 mg BID ALAN Administration Sodium Chloride 1,000 mls @ 125 mls/hr 10/02/23 05:45 10/02/23 09:03 Nss IV 10/02/23 21:44 125 mls/hr .Q8H ALAN Infusion Acetaminophen 1,000 mg in 100 mls @ 400 mls/hr 10/02/23 08:00 10/02/23 12:23 Ofirmev IV 10/05/23 07:59 Infused Q8H PRN Infusion pain first line Lactated Ringer's 1,000 mls @ 15 mls/hr 10/02/23 14:00 10/02/23 14:52 Lr IV 11/01/23 13:59 Infused .Q24H ALAN Infusion Losartan Potassium 100 mg 10/02/23 09:00 10/02/23 09:06 Losartan Potassium 50 Mg Tab PO 11/01/23 08:59 100 mg DAILY ALAN Administration Morphine Sulfate 2 mg 10/02/23 08:00 10/02/23 12:15 Morphine Sulfate 2 Mg/Ml Carp IV 02/23/24 07:59 2 mg Q4H PRN Administration Pain second line NPO Date Last Intake of Fluids: 10/01/23 Time Last Intake of Fluids: 23:59 Date Last Intake of Solids: 10/01/23 Time Last Intake of Solids: 23:59 Past Medical History Medical History (Updated 10/02/23 @ 12:37 by Apollo Lemons DO, FACS) Acute calculous cholecystitis History of COVID-19 04/2022 - severe flu like symptoms. IUD (intrauterine device) in place Mirena 08/11 Claustrophobia only for MRI's Depression with anxiety GERD (gastroesophageal reflux disease) controlled with medication Anemia hx Crohn disease Multiple sclerosis follows with [facility] Pleural effusion (12/02/13) hx of 2013 Migraine hx Hypertension (12/02/13) resolved Pneumonia hx of Bronchitis hx of Past Family History Family History Father Family history of diabetes mellitus Sister Family history of diabetes mellitus Mother Colonic polyp Other No family history of adverse response to anesthesia Denies family history of Ovarian cancer Breast cancer Colorectal cancer Past Surgical History Surgical History History of bladder surgery (~10/2021) ant repair, had uterine suspension, but had to take down because of pain. History of tooth extraction Status post dilation and curettage History of colposcopy S/P LEEP (loop electrosurgical excision procedure) S/P excisional debridement left hip (resulted from Copaxone injection) History of esophagogastroduodenoscopy (EGD) History of colonoscopy Social History Smoking Status: Current every day smoker tobacco type: cigarettes Smoking cigarettes per day: 10-15 Do You Dip or Chew Tobacco: No Hx Alcohol Use: No Alcohol type: beer, wine and hard liquor alcohol intake frequency: a few times a month Hx Substance Use: No substance use type: does not use Physical Exam Vital Signs Last Vital Signs Temp 36.9 C 10/02/23 14:12 Pulse 44 L 10/02/23 14:12 Resp 20 10/02/23 14:12 BP 130/80 10/02/23 14:12 Pulse Ox 95 10/02/23 14:12 O2 Del Method Room Air 10/02/23 14:12 Testing Laboratory Results 10/02/23 07:32 10/02/23 07:32
[2023-10-02] MEDS ORDERED: ATROPINE SULFATE 0.1 MG/ML 10ML SYR IV PRN (15:07)
[2023-10-02] MEDS ORDERED: PROMETHAZINE HCL 12.5 MG in SODIUM CHLORIDE 0.9% 50 ML IV PRN (15:07)
[2023-10-02] MEDS ORDERED: ePHEDrine sulfate 50 MG/ML AMP IV PRN (15:07)
[2023-10-02] MEDS ORDERED: ONDANSETRON INJ 2 MG/ML 2 ML VIAL IV PRN (15:07)
[2023-10-02] MEDS ORDERED: PROPOFOL IV EMULSION 10 MG/ML 20 ML VIAL IV ONE (15:19)
[2023-10-02] MEDS ORDERED: GLYCOPYRROLATE 0.2 MG/ML VIAL ONE (15:19)
[2023-10-02] MEDS ORDERED: ONDANSETRON INJ 2 MG/ML 2 ML VIAL ONE (15:19)
[2023-10-02] MEDS ORDERED: LIDOCAINE 2% 2 ML VIAL/AMP(20MG/ML) INFIL ONE (15:19)
[2023-10-02] MEDS ORDERED: SUGAMMADEX SODIUM 200 MG/2 ML VIAL IV ONE (15:19)
[2023-10-02] MEDS ORDERED: DEXAMETHASONE SOD INJ 4 MG/ML VIAL ONE (15:19)
[2023-10-02] MEDS ORDERED: ROCURONIUM BROMIDE 10 MG/ML 5 ML VIAL IV ONE (15:19)
[2023-10-02] MEDS ORDERED: KETOROLAC 30 MG/ML VIAL ONE (15:39)
[2023-10-02] MEDS: BUPIVACAINE 0.5 % 5 MG/1 ML MPF 30ML VIAL ONE (15:57)
--- NOTE | 2023-10-02 16:05 | Operative Report ---
PG Post Operative Report Pre & Post Diagnosis Operation Date: 10/02/23 12:10 Pre-Op Diagnosis: Acute cholecystitis Post-Op Diagnosis: Acute on chronic cholecystitis I identified the patient and participated in the time-out.: Yes Procedure Operation Date: 10/02/23 12:10 Actual Procedures p Laparoscopic Cholecystectomy - Apollo Lemons DO, FACS Surgeon Apollo Lemons DO, FACS Tapper Balance Wheel Screw Hole Mariama Pineda Estimated Blood Loss 5 Findings Consistent with Post-Op Diagnosis Moderately and acutely on chronically inflamed gallbladder. Critical view of safety obtained, cystic duct and artery doubly clipped divided. Good hemostasis. Specimens Gallbladder Anesthesia Type General Complications none Disposition Accompanied Patient To Recovery: No Disposition: Recovery Room Indications 43-year-old female with signs and symptoms of acute on chronic cholecystitis. Plan for laparoscopic cholecystectomy. The risks of the procedure were discussed, all questions were answered, and the patient agreed to proceed with surgery as planned. Description of Procedure The patient was properly identified, consented, and taken to the operating room where she was placed in the supine position. General endotracheal anesthesia was induced. SCDs and a safety belt were placed. Preoperative antibiotics were administered. The patient's abdomen was prepped and draped in the standard sterile fashion. A surgical timeout was performed and all parties were in agreement that this was the correct patient and procedure to be performed and we continued as planned. An incision was made superior and to the left of the umbilicus overlying the rectus muscle and the Veress needle was inserted. Saline drop test confirmed entry into the peritoneum. The abdomen was insufflated with carbon dioxide which the patient tolerated without incident. The abdomen was then entered using the Optiview technique and a 5 mm trocar. The laparoscope was inserted and no damage from initial trocar or Veress needle placement was noted, no gross abnormalities were noted within the 4 quadrants of the abdomen. An 11 mm port was placed in the subxiphoid position and two 5 mm ports were then placed in the right subcostal position. The patient was placed in reverse Trendelenburg position and rotated towards the left. The gallbladder was moderately and acutely and chronically inflamed. The dome of the gallbladder was retracted towards the left upper quadrant and the infundibulum was retracted toward the right lower quadrant revealing Calot's triangle. Peritoneal attachments were taken down with electrocautery and blunt dissection. The cystic duct and artery were circumferentially dissected. A window of safety was obtained showing the cystic duct entering the gallbladder with no aberrant structures noted. The cystic duct and artery were doubly clipped and divided. The gallbladder was then lifted off the gallbladder fossa with electrocautery. The dome and body of the gallbladder were partially intrahepatic. The gallbladder was placed in an Endo Catch bag and removed through the subxiphoid port site. The gallbladder bed was cauterized for hemostasis. The right upper quadrant was irrigated and hemostasis was found to be good. 5 mm trochars were removed under direct visualization and the abdomen was allowed to collapse. The subsite port site fascia was closed with 0 Vicryl suture utilizing a Josue-Lima device prior to removal of the port. The wound was irrigated, and the skin of all ports was closed with 4-0 Monocryl subcuticular sutures. Dermabond was placed over the wounds. The patient was extubated in the operating room and taken to the PACU where she recovered without apparent incident. All sponge, instrument and needle counts were correct at the conclusion of the procedure. The patient tolerated the procedure well. The physician's assistant controller was present and scrubbed for the entirety of the case and was essential in positioning the patient, prepping and draping, retraction and exposure, driving the laparoscope, removal of the gallbladder, closure the incisions, and placement of the dressings. I attest to the content of the Intraoperative Record and any orders documented therein. Any exceptions are noted below.
[2023-10-02] MEDS: fentaNYL citrate PF 100 MCG/2 ML VIAL IV PRN (16:25)
[2023-10-02] MEDS: HYDROmorphone INJ 2 MG/ML SYR/VIAL IV PRN (16:50)
[2023-10-02] MEDS: HYDROmorphone INJ 1 MG/ML SYRINGE ONE (16:55)
[2023-10-02] MEDS: KETOROLAC 30 MG/ML VIAL IV ONE (17:09)
[2023-10-02] MEDS: ACETAMINOPHEN 1,000 MG/100 ML VIAL IV STA (17:13)
[2023-10-02] MEDS ORDERED: MoRPHine SULFATE 2 MG/ML CARP IV PRN (17:43)
[2023-10-02] MEDS ORDERED: MoRPHine SULFATE 4 MG/ML 1 ML CARP\\VIAL IV PRN (17:43)
[2023-10-02] MEDS: KETOROLAC 30 MG/ML VIAL ONE (18:14)
--- NOTE | 2023-10-02 18:25 | Anesthesiology Progress Note ---
Date of Service October 02, 2023 Anesthesia Post Procedure Vital Signs Vital Signs: Temp Pulse Pulse Pulse Resp BP BP 10/02/23 18:15 36.5 C 44 L 18 144/82 H 10/02/23 17:45 36.5 C 52 L 18 129/81 10/02/23 17:20 36.5 C 55 L 17 118/69 10/02/23 17:10 48 L 17 127/68 10/02/23 17:00 50 L 16 124/72 10/02/23 16:50 70 16 116/74 10/02/23 16:40 53 L 14 122/64 10/02/23 16:30 51 L 17 135/78 10/02/23 16:20 36.1 C L 62 17 134/95 10/02/23 14:12 36.9 C 44 L 20 130/80 10/02/23 08:00 36.8 C 82 18 149/86 H 10/02/23 07:30 46 L 23 135/70 10/02/23 06:50 48 L 23 10/02/23 06:40 48 L 24 10/02/23 06:36 51 L 24 10/02/23 06:36 50 L 16 120/66 10/02/23 06:35 44 L 10/02/23 06:35 50 L 16 10/02/23 03:50 56 L 21 10/02/23 03:40 55 L 23 10/02/23 03:30 58 L 25 H 10/02/23 03:20 59 L 22 10/02/23 03:10 56 L 18 10/02/23 03:00 55 L 26 H 10/02/23 02:53 57 L 17 10/02/23 02:53 150/76 H 10/02/23 02:50 54 L 18 10/02/23 02:40 60 22 10/02/23 02:31 61 24 10/02/23 02:31 62 10/02/23 02:22 63 15 10/02/23 02:13 37 C 81 18 155/120 H Pulse Ox O2 Del Method O2 Flow Rate 10/02/23 18:15 94 Nasal Cannula 10/02/23 17:45 94 Nasal Cannula 3 10/02/23 17:20 94 Nasal Cannula 3 10/02/23 17:10 94 Nasal Cannula 3 10/02/23 17:00 94 Nasal Cannula 3 10/02/23 16:50 95 Nasal Cannula 3 10/02/23 16:40 96 Oxymask 5 10/02/23 16:30 97 Oxymask 5 10/02/23 16:20 97 Oxymask 5 10/02/23 14:12 95 Room Air 10/02/23 08:00 97 Room Air 10/02/23 07:30 93 10/02/23 06:50 94 10/02/23 06:40 94 10/02/23 06:36 93 10/02/23 06:36 94 10/02/23 06:35 10/02/23 06:35 94 10/02/23 03:50 90 10/02/23 03:40 90 10/02/23 03:30 91 10/02/23 03:20 92 10/02/23 03:10 94 10/02/23 03:00 93 10/02/23 02:53 91 10/02/23 02:53 10/02/23 02:50 95 10/02/23 02:40 96 10/02/23 02:31 94 10/02/23 02:31 10/02/23 02:22 96 10/02/23 02:13 95 Room Air Pain Intensity Left Abdomen: Pain Intensity: 5 Transfer of Care Handoff Completed per policy Notes Mental Status: alert / awake / arousable Patient Amnestic to Procedure: Yes Nausea / Vomiting: adequately controlled Pain: adequately controlled Airway Patency, RR, SpO2: stable & adequate BP & HR: stable & adequate Hydration State: stable & adequate Anesthetic Complications: no major complications apparent
[2023-10-02] MEDS: oxyCODONE HCL IR 5 MG TAB (IMMEDIATE RELEASE) PO PRN (18:26)
[2023-10-03] MEDS: cefTRIAXone SODIUM 2,000 MG in DEXTROSE 5 % MINI-B 50 ML IV SCH (05:52)
--- NOTE | 2023-10-03 06:08 | Billing Data ---
Date of Service October 03, 2023 Coding Level of Care Code 97280 INT INP/OBS CARE
[2023-10-03 06:20] LABS: Basophils # (auto) 0.02 K/uL (0.00-0.20); Basophils % (auto) 0.3 %; Hematocrit (blood only) 36.1 % (37.0-47.0); Hemoglobin 11.6 g/dl (12.0-16.0); Immature Granulocytes # (auto) 0.03 K/uL (0.01-0.20); Immature Granulocytes % (auto) 0.4 %; Lymphocytes # (auto) 0.94 K/uL (1.20-3.40); Lymphocytes % (auto) 12.6 %; Mean Corpuscular Hemoglobin 28.4 pg (25.0-34.0); Mean Corpuscular Hgb Conc 32.1 g/dL (32.0-36.0); Mean Corpuscular Volume 88.5 fL (80.0-100.0); Mean Platelet Volume 10.6 fL (9.4-12.4); Monocytes # (auto) 0.47 K/uL (0.11-0.59); Monocytes % (auto) 6.3 %; Neutrophils % (auto) 80.4 %; Platelet Count 268 K/uL (130-400); RDW Coefficient of Variation 14.2 % (11.5-14.5); RDW Standard Deviation 45.8 fL (36.4-46.3); Red Blood Count 4.08 M/uL (4.20-5.40); White Blood Count 7.46 K/ul (4.8-10.8)
[2023-10-03 06:47] LABS: Albumin Level 3.7 gm/dl (3.4-5.0); Bilirubin Direct 0.1 mg/dl (0-0.2); Bilirubin,Total 0.3 mg/dl (0.2-1.0); Calcium 8.6 mg/dl (8.6-10.3); Potassium 4.5 mmol/L (3.5-5.1)
--- NOTE | 2023-10-03 06:48 | Hospitalist Progress Note ---
"Date of Service October 03, 2023 Assessment & Plan (1) Acute cholecystitis: (2) GERD (gastroesophageal reflux disease): (3) Multiple sclerosis: (4) Anemia: Plan Concern of Cholecystitis | Abdominal Pain -Sudden onset of abdominal pain overnight, pain worse at RUQ -Gallbladder Ultrasound: calculus at the gallbladder neck measuring 7 mm. Gallbladder wall thickness measures 5 mm. -CBC within normal limits, patient is afebrile. Liver function tests within normal limits. -General surgery consulted, cholecystectomy 10/02. -Currently on IV Ceftriaxone, can consider d/c if passing gas, surgery team okay for discharge. -Analgesia and antiemetics ordered Hypertension -Continue home olmesartan Depression/Anxiety -Continue home Citalopram, Clonazepam Multiple Sclerosis -Receives outpatient vedolizumab infusions [id number] Admit to med/surg Diet: clear liquid diet VTE Prophylaxis: SCDs Code Status: Full Code Admission and Anticipated Discharge Date Admission Date: October 02, 2023 Subjective Patient doing well this morning, pain minimal for her. She was able to eat a little bit of everything for her breakfast today. Not yet passing gas or having BM. Urination without issue, she's been out of bed to walk to the bathroom and back. Pain has been well controlled with Tylenol so far today. Review of Systems Review of Systems: As per above Physical Exam Constitutional: WD/WN, vitals as above Patient in great mood, smiling. Respiratory: normal respiratory effort, lungs clear to auscultation Cardiovascular: RRR, no murmur, no edema Gastrointestinal (Abdomen): Incision scars without any erythema or discharge, healing well. Minimal tenderness to palpation. BS+ Psychiatric: A+Ox3, euthymic affect Results & Data Results & Data Vital Signs (Past 12 Hours) Vital Signs Temp Pulse Pulse Resp BP Pulse Ox O2 Del Method 10/03/23 03:57 36.4 C L 48 L 16 146/64 H 99 Nasal Cannula 10/03/23 00:00 36.5 C 42 L 16 157/74 H 98 Nasal Cannula 10/02/23 21:10 Nasal Cannula 10/02/23 20:36 36.4 C L 44 L 16 133/75 97 Nasal Cannula 10/02/23 19:46 36.5 C 44 L 16 126/66 97 Nasal Cannula O2 Flow Rate 10/03/23 03:57 2 10/03/23 00:00 2 10/02/23 21:10 2 10/02/23 20:36 2 10/02/23 19:46 2 Resident Activity Tracking Resident Involvement: Resident Care Provided Care Provided: Adult Hospital Medicine"
[2023-10-03 06:53] LABS: BUN Creatinine Ratio 15.7 (10-20); Creatinine Clr Calc Pharmacy 135.2 ml/min; Est GFR (African American) 121.3 ml/min; Est GFR (Non-African American) 104.6 ml/min; Total Protein 5.7 gm/dl (6.0-8.3)
--- NOTE | 2023-10-03 11:18 | Surgery Progress Note ---
Date of Service October 03, 2023 Assessment & Plan (1) Acute calculous cholecystitis: Plan: POD#1 lap rafiq WBC 7, Hbg 11, LFTs okay pt feels well. pain controlled diet as tolerates dispo instructions reviewed, f/u with dr. kelly in clinic within 2 weeks time Admission and Anticipated Discharge Date Admission Date: October 02, 2023 Subjective Patient is feeling much better s/p surgery. Offers no complaints. Physical Exam Physical Exam: awake/alert, no distress Gastrointestinal (Abdomen): skin glue over incisions Results & Data Vital Signs (Past 12 Hours) Vital Signs Temp Pulse Resp BP Pulse Ox O2 Del Method O2 Flow Rate 10/03/23 11:05 43 L 10/03/23 11:00 98.4 F 37 L 16 162/84 H 96 Room Air 10/03/23 08:00 Room Air 10/03/23 07:31 98.1 F 43 L 16 174/80 H 97 Room Air 2 10/03/23 03:57 97.5 F L 48 L 16 146/64 H 99 Nasal Cannula 2 10/03/23 00:00 97.7 F 42 L 16 157/74 H 98 Nasal Cannula 2 PG Care Time/CCT Total # of Minutes Spent Total Time Spent with Patient: Total time spent is greater than 50% in coordination of care (as documented) at patient's floor/unit and/or counseling patient: Coding Level of Care Code 62524 Post Operative Follow-Up Diagnoses Acute calculous cholecystitis K80.00
--- NOTE | 2023-10-03 11:32 | Discharge Summary ---
Date of Service October 03, 2023 Admission HPI Per Admitting Provider Anika Mccullough is a 43 year-old female with a past medical history of Crohn's disease, HTN, multiple sclerosis, GERD, and anemia who presented to the ED for concern of abdominal pain. She notes that she awoke in the middle of the night with sudden onset centralized abdominal pain, initially took Mylanta and Tums without relief. Notes she ate a cheesesteak for dinner, has had some diarrhea for the past few days but assumed that was due to her Crohn's as she is due for her next infusion soon. She denies any nausea or vomiting, states that on arrival her pain was a 10/10 but is currently a 5/10 in intensity. Notes that the pain did worsen at her RUQ after the probe for the ultrasound was pressed there. Denies chest pain or shortness of breath. ED Course: -CBC, CMP -US Gallbladder, Chest XR Admission Exam Per Admitting Provider Constitutional: WD/WN, vitals as above Eyes: + anicteric sclerae; no conjunctival abn ormality ENMT: Ears: no external ear abnormality Nose: no external nose abnormality moist mucous membranes Respiratory: normal respiratory effort, lungs clear to auscultation Cardiovascular: Rate/Rhythm: regular rate and regular rhythm Gastrointestinal (Abdomen): Inspection/Auscultation: abdomen normal to inspection Percussion/Palpation: + abdomen tender and abdomen soft Significant pain with palpation of RUQ Skin: no rashes, warm and dry Neurologic: Moves all limbs independently Psychiatric: A+Ox3, euthymic affect Principal Diagnosis Cholecystitis Discharge Exam Constitutional WD/WN, vitals as above Respiratory normal respiratory effort, lungs clear to auscultation Cardiovascular RRR, no murmur, no edema Gastrointestinal (Abdomen) Incision scars without any erythema or discharge, healing well. Minimal tenderness to palpation. BS+ Psychiatric A+Ox3, euthymic affect Discharge Data Allergies Allergy/AdvReac Type Severity Reaction Status Date / Time glatiramer (copolymer 1) Allergy Intermediate severe Verified 10/02/23 02:42 [From Copaxone] wound from injection site nickel Allergy Intermediate "ITCHY, Verified 10/02/23 02:42 RED BUMPS" adhesive Allergy Mild RASH Verified 10/02/23 02:42 amoxicillin Allergy Mild Rash Verified 10/02/23 02:42 nitrofurantoin Allergy Mild RASH Verified 10/02/23 02:42 Penicillins Allergy Mild ITCHY, Verified 10/02/23 02:42 NAUSEATED Sulfa (Sulfonamide Allergy Mild RASH Verified 10/02/23 02:42 Antibiotics) teriflunomide [From Aubagio] Allergy Mild headache, Verified 10/02/23 02:42 dizziness, gastro problems fluvoxamine AdvReac Intermediate low heart Verified 10/02/23 02:42 rate Consultations 10/02/23 04:51 ED Decision to Admit Stat 10/02/23 05:34 Consult General Surgery Routine Procedures Performed Operation Date: 10/02/23 12:10 Actual Procedures p Laparoscopic Cholecystectomy - Apollo Lemons DO, FACS Ordered Studies 10/02/23 02:17 US gallbladder Stat Hospital Course (1) Acute cholecystitis: (2) GERD (gastroesophageal reflux disease): (3) Multiple sclerosis: (4) Anemia: Plan Cholecystitis | Abdominal Pain -Sudden onset of abdominal pain overnight, pain worse at RUQ -Gallbladder Ultrasound: calculus at the gallbladder neck measuring 7 mm. Gallbladder wall thickness measures 5 mm. -General surgery consulted, cholecystectomy 10/02. -Did well post operatively. D/C to home, follow up with Gen Surg outpatient in 2 weeks. -Given PRN oxycodone 5-10mg for pain at home. -Note for work excuse provided until . Total Time Total Time Spent Total Time Spent (In Minutes): Please see attending attestation. Discharge Plan Discharge Items Patient Disposition: Home - Self-Care Reason For Visit: ABD PAIN Discharge Diagnosis: laparoscopic cholecystectomy Condition on Discharge: Good Activity: Per Instructions section Lifting: No more than 10 pounds Bathing Comment: may shower starting 10/03/23; no soaking in tubs/pools x 2 weeks Exercise/Sports: Wait until after follow-up appointment Driving/Machine Use: no driving while taking narcotics for pain Non-emergency contact: Surgeon Call non-emergency contact if: you have any medication questions, your symptoms worsen, you have a fever, your temperature is above 101.5, your wound has increased redness, your wound has increased drainage and your wound pain has increased Follow-up/Referrals: Apollo Lemons DO, FACS [Physician] - (please call to schedule follow up in clinic within 2 weeks ) Facundo Torres MD [Primary Care Provider] - Diet: Regular Addtl Attending Provider Instructions: You have skin glue over your incisions called dermabond. you may shower with this on. It will tend to dissolve and fall off within a couple weeks. Do not pick at the skin glue You may purchase Tylenol and/or Ibuprofen over the counter if needed for additional pain control over the next few days. Take per manufacturers instructions Please follow up with general surgery clinic in 2 weeks. Pending Studies at Discharge: Yes Studies:: surgical pathology Stand-Alone Forms: My [facility], Work/School Release, Smoking Cessation Medications and DC Order Prescriptions: New oxycodone 5 mg tablet 5 - 10 mg PO .[id number] PRN (Reason: pain, for initial therapy, max 6 tabs per day) Qty: 15 0RF Continued Ocrevus 30 mg/mL solution 600 mg IV Q6M Qty: 20 1RF Rx Instructions: 30 minutes before each infusion, premedicate with methylprednisolone 100mg IV, diphenhydramine 25mg IV, and acetaminophen 500mg PO, May give an additional 25mg diphenhydramine IV during infusion PRN. diazepam [Valium] 5 mg tablet 5 mg PO .COMPLEX PRN (Reason: anxiety) Qty: 2 0RF Rx Instructions: 5 mg PO TAKE 1 TABLET 1 HOUR PRIOR TO MRI, MAY REPEAT AT THE TIME OF MRI PRN; modafinil [Provigil] 200 mg tablet 200 mg PO QAM Qty: 30 5RF Mirena 20 mcg/24 hours (5 yrs) 52 mg intrauterine device 1 device IU CONTINOUS Zyrtec 10 mg capsule 10 mg PO DAILY PRN (Reason: seasonal allergies) Entyvio 300 mg recon soln 300 mg IV Q8WK citalopram 40 mg tablet 40 mg PO QAM clonazepam 1 mg tablet 1 mg PO BID cyanocobalamin (vitamin B-12) 1,000 mcg/mL Solution 1,000 mcg IM MONTHLY ergocalciferol (vitamin D2) [Vitamin D2] 50,000 unit Capsule 50,000 unit PO WK Rx Instructions: SATURDAYS omeprazole 20 mg Capsule,Delayed Release(Dr/Ec) 20 mg PO BID olmesartan 40 mg tablet 40 mg PO DAILY Discharge Orders: Discharge Order (Routine); Ordered 10/03/23 Ordered By: Car Wolff/Other Patient Handouts: Cholecystectomy Admission Data Admit Date/Time: 10/02/23 05:31 Attending Provider: Donna Murphy Admit Provider: Jayne Johnson Primary Care Provider: Facundo Torres Other Providers: Peyman Peterson; Apollo Lemons Other Interventions: Discharge Summary Assessment (RN) Last Done: 10/03/23 11:44 Supervising Physician Co-Signing Physician Notes Attending Physician Supervision Note: I independently interviewed and examined the patient and verified the arreola history and physical, reviewed labs and image studies and agree with findings and care plan noted above. Resident Activity Tracking Resident Involvement: Resident Care Provided Care Provided: Adult Hospital Medicine
[2023-10-03] MEDS: oxyCODONE HCL IR 5 MG TAB (IMMEDIATE RELEASE) PO PRN (11:41)
--- NOTE | 2023-10-07 09:12 | Coding Query ---
BMI To promote full compliance with coding requirements relating to patient care, physician participation is requested in all cases of occupational medicine specialist uncertainty. Please assist us with the question(s) below: Please place an X within the parenthesis (x). If other, please document: BMI 46.0 was documented in this record for this patient. If the BMI is significant, please check the box that provides a more specific associated diagnosis: ( ) Overweight/Obese ( ) Obesity (x ) Morbid obesity ( ) Obesity Hypoventilation Syndrome (OHS) ( ) Heathy weight, not significant ( ) Underweight/Thin ( ) Other, please specify Thank you Daniella NUGENT
== END 2023-10-03 12:21 | disposition home or self-care (01) | DRG 418 ==
LOC: SUATTDRO → ED 02:09 → 3N 05:31 → INTOOBSV 05:31 → SUATTDRO 05:31 → 3N 07:32